=== PATIENT | male | born 1945 | race Caucasian/White ===

== ENCOUNTER 2024-05-27 22:13 | Inpatient (IN) | payer OTHER, SELFPAY ==
--- NOTE | ~2024-05-27 | XR_ITS ---
EXAMINATION: XR CHEST CLINICAL INFORMATION: Dyspnea COMPARISON: None available. TECHNIQUE: Frontal view of the chest was obtained. FINDINGS: There is cardiac enlargement. Mitral annular calcification is present. Patient status post median sternotomy. Surgical clips are seen at the left apex. There is mild pulmonary vascular congestion present. No large effusions are seen. There is atelectasis at the left lung base. There is a catheter that overlies the left neck with tip extending up the neck. Please correlate clinically as this could represent O2 tubing rather than a venous catheter XR/XR chest 1V IMPRESSION: 1. Cardiomegaly with mild pulmonary vascular congestion. Catheter overlying the left neck with tip extending in a cephalad direction. This could simply be O2 tubing. Please correlate clinically.
--- NOTE | ~2024-05-27 | XR_ITS ---
EXAMINATION: XR CHEST CLINICAL INFORMATION: Shortness of breath COMPARISON: 05/27/2024 TECHNIQUE: Frontal view of the chest was obtained. FINDINGS: Patient is status post median sternotomy with cardiomegaly and mild vascular congestion without significant interval change since previous study. No evidence of pleural effusion. XR/XR chest 1V IMPRESSION: Mild vascular congestion and cardiomegaly
[2024-05-27 22:24] VITALS: BP 98/51; PULSE 88; RESP 20; TEMP 37.7; O2SAT 91
[2024-05-27 22:26] VITALS: BP 109/52; BP 118/72; PULSE 86; RESP 24; TEMP 37.8; O2SAT 94; BMI 48.7
[2024-05-27 22:27] LABS: Glucose, Whole Blood 69 mg/dL (60-115)
--- NOTE | 2024-05-27 22:30 | PC.NURSE ---
Pt A&Ox3, denies any pain, reports nausea and flu like symptoms x 3 days and today started to have diarrhea. Pt also reports he is a diabetic and his POC have been low for him in the 80s. Recent POC 69.
[2024-05-27 23:04] LABS: MANUAL DIFF FLAG NO
[2024-05-27 23:08] LABS: Basophils Percent Auto 0.3 % (0-2); Hemoglobin 14.4 g/dl (14.0-18.0); Imm Gran Abs Auto 0.02 X10*3/uL (0.00-0.03); Imm Gran Pct Auto 0.3 % (0.0-0.4); Lymphocytes Absolute Auto 0.6 X10*3/uL (1.2-4.9); Lymphocytes Percent Auto 8.5 % (20-40); Mean Corpuscular HGB Conc 35.1 g/dl (31.0-36.0); Mean Corpuscular Hemoglobin 31.3 pg (27.0-33.0); Mean Corpuscular Volume 89.1 fL (80.0-98.0); Mean Platelet Volume 8.7 fL (9.4-12.4); Monocytes Absolute Auto 0.7 X10*3/uL (0.1-1.2); Monocytes Percent Auto 10.5 % (2-11); Neutrophils Absolute Auto 5.5 x10*3/uL (2.0-8.3); Neutrophils Percent Auto 80.4 % (45-73); Platelet Count 184 X10*3/uL (160-400); Red Cell Distribution Width 13.3 % (11.0-16.0); White Blood Count 6.9 X10*3/uL (4.8-10.8)
[2024-05-27 23:29] LABS: Influenza A PCR NEGATIVE (Negative); Influenza B PCR NEGATIVE (Negative); Resp Syncy Virus RNA Qual PCR NEGATIVE (Negative); SARS COV2 PCR INHOUSE NEGATIVE (Negative)
[2024-05-27] MEDS: 0.9 % Sodium Chloride 1,000 ML 999 ML IV (23:49)
[2024-05-27] MEDS: ondansetron HCL 4 MG/2 ML VIAL IVPUSH (23:51)
[2024-05-28] VITALS (8 sets, daily range): BP systolic 95–113; BP diastolic 38–77; PULSE 67–88; RESP 15–24; TEMP 36.2–37.9; O2SAT 91–98
--- NOTE | 2024-05-28 | ECG_ITS ---
Test Reason : CHECK QT Blood Pressure : / mmHG Vent. Rate : 090 BPM Atrial Rate : 000 BPM P-R Int : 000 ms QRS Dur : 116 ms QT Int : 354 ms P-R-T Axes : 000 004 147 degrees QTc Int : 433 ms Accelerated Junctional rhythm with retrograde conduction T wave abnormality, consider lateral ischemia Abnormal ECG When compared with ECG of 28-MAY-2024 01:58, Junctional rhythm has replaced Sinus rhythm T wave inversion more evident in Lateral leads Referred By: Ceci Baker Electronically Signed By:Leonidas Cui
[2024-05-28 00:20] LABS: Alanine Aminotransferase 20 U/L (0-40); Albumin Level 3.9 g/dL (3.5-5.0); Alkaline Phosphatase 42 U/L (39-117); Anion Gap 14 (12-20); Aspartate Amino Transferase 21 U/L (5-37); Bilirubin Total 0.6 mg/dL (0.0-1.0); Blood Urea Nitrogen 36 mg/dL (9-16); Calcium 9.2 mg/dL (8.4-10.2); Carbon Dioxide 25 mmol/L (22-29); Chloride 105 mmol/L (96-108); Creatinine Clr Calc Pharmacy 37.5; Estimated Glomerular Filt Rate 28; Glucose Random 54 mg/dL (60-115); Potassium 4.1 mmol/L (3.3-5.1); Sodium 140 mmol/L (135-145); Total Protein 7.3 g/dL (6.5-8.0)
[2024-05-28] MEDS: Dextrose 5 % and 0.45 % NaCl 1,000 ML 100 ML IVCONT (00:47)
--- NOTE | 2024-05-28 01:17 | ED_ITS ---
HPI - General Adult General Chief complaint: General Medical Stated complaint: N/D, DIABETIC BGL 76 Time Seen by Provider: 05/27/24 22:53 Source: patient Mode of arrival: ambulatory Limitations: no limitations History of Present Illness ED Provider: raciel MACKEY narrative: Patient diabetic on insulin been feeling weak and sick since yesterday evening patient had [employer] burger earlier at lunchtime had profuse diarrhea yesterday evening gave him Imodium had few more loose bowels vomited 2- 3 times since then been feeling bloated did not eat much all day today also did not take his insulin accepted in the a.m. when blood sugar was about 150 patient has been feeling very weak just prior to arrival patient's slumped down on the couch without any injuries checked the blood sugar was 89 she gave him 3 glucose tablets on arrival patient's blood glucose was 54 no fever no chills no significant abdominal pain Related Data Allergies Allergy/AdvReac Type Severity Reaction Status Date / Time No Known Allergies Allergy Verified 05/27/24 22:31 [No Known Allergies*] Review of Systems 2 Review of Systems: Yes all other systems are reviewed and are negative [facility] Social History Social History Advance Directives: No Advance Directives Information Provided: No Physical Exam ED Vital Signs: Vital Signs - 24 hr 05/27/24 22:24 05/27/24 22:26 05/28/24 00:57 Temperature 100 F 100.0 F 98.1 F Pulse Rate 88 86 73 Respiratory Rate 20 24 H 24 H Blood Pressure 98/51 L 109/52 L 113/38 L Pulse Oximetry 91 L 94 95 Oxygen Delivery Method Room Air Nasal Cannula Room Air BMI result Body Mass Index 48.7 Appearance: Alert. Oriented X3. No acute distress. Eyes: No pallor or icterus ENT: Pharynx normal. Oral Mucosa moist Neck: Normal inspection. Neck supple. CVS: Normal heart rate and rhythm. Pulses normal. Respiratory: No respiratory distress. Equal air entry bilateral, no wheezing/rales/rhonchi Abdomen: Soft and nontender. Bowel sounds are present, no mass palpable, no CVA tenderness Skin: Skin warm and dry. Normal skin color. Normal skin turgor. Extremities: No lower extremity edema. No calf tenderness Neuro: Oriented X 3. No motor deficit. No sensory deficit.No cerebellar signs , cranial nerves II-XII intact Medications Administered Generic Name Dose Route Start Last Admin Trade Name Freq PRN Reason Stop Dose Admin Dextrose/Sodium Chloride 1,000 mls @ 100 mls/hr 05/28/24 00:30 05/28/24 00:47 D51/2ns IVCONT 100 mls/hr .Q10H VALE Administration Discontinued Medications Generic Name Dose Route Start Last Admin Trade Name Freq PRN Reason Stop Dose Admin Sodium Chloride 1,000 mls @ 999 mls/hr 05/27/24 23:41 05/28/24 00:50 Ns IV 05/28/24 00:41 Infused .Q1H1M ONE Infusion Ondansetron HCl 4 mg 05/27/24 23:41 05/27/24 23:51 Ondansetron Hcl 4 Mg/2 Ml Vial IVPUSH 05/27/24 23:42 4 mg ONCE ONE Administration Medical Decision Making Medical Decision Making [facility] Narrative: Patient with MARTINE with hypoglycemia will give IV fluids started on dextrose drip blood cultures and lactic acid done to rule out bacteremia clinically patient had Clostridium perfringens infection after eating burger patient is unaware of his kidney function before Patient is still feeling weak has elevated creatinine level/poor oral intake/hyperglycemia Differential Diagnosis Differential Diagnoses: The differential diagnosis associated with the presentation includes Food poisoning/bacteremia/dehydration Admission/Observation Consideration of admission/observation: Escalation of care including admission/observation considered Consult Healthcare Provider Management of the patient was discussed with: Hospitalist Lab Data [facility] Lab Attestation statement: I reviewed the patient's lab results. 05/27/24 22:59 05/28/24 00:00 Labs: Lab Results 05/27/24 05/27/24 05/27/24 Range/Units 22:18 22:37 22:59 WBC 6.9 (4.8-10.8) X10*3/uL RBC 4.60 (4.60-5.80) X10*6/uL Hgb 14.4 (14.0-18.0) g/dl Hct 41.0 L (42.0-52.0) % MCV 89.1 (80.0-98.0) fL MCH 31.3 (27.0-33.0) pg MCHC 35.1 (31.0-36.0) g/dl RDW 13.3 (11.0-16.0) % Plt Count 184 (160-400) X10*3/uL MPV 8.7 L (9.4-12.4) fL Immature Gran % (Auto) 0.3 (0.0-0.4) % Neut % (Auto) 80.4 H (45-73) % Lymph % (Auto) 8.5 L (20-40) % Barbour % (Auto) 10.5 (2-11) % Eos % (Auto) 0.0 (0-4) % Baso % (Auto) 0.3 (0-2) % Lymph # (Auto) 0.6 L (1.2-4.9) X10*3/uL Barbour # (Auto) 0.7 (0.1-1.2) X10*3/uL Eos # (Auto) 0.0 (0.0-0.4) X10*3/uL Baso # (Auto) 0.0 (0.0-0.2) X10*3/uL Abs Immat Gran (auto) 0.02 (0.00-0.03) X10*3/uL Absolute Neuts (auto) 5.5 (2.0-8.3) x10*3/uL Absolute Nucleated RBC 0.000 (0.0-0.012) X10*3/uL Nucleated RBC % (auto) 0.0 (0.0-0.2) /100WBC Sodium (135-145) mmol/L Potassium (3.3-5.1) mmol/L Chloride (96-108) mmol/L Carbon Dioxide (22-29) mmol/L Anion Gap (12-20) BUN (9-16) mg/dL Creatinine (0.5-1.4) mg/dL Estim Creat Clear Calc Estimated GFR POC Glucose 69 (60-115) mg/dL Random Glucose (60-115) mg/dL Calcium (8.4-10.2) mg/dL Total Bilirubin (0.0-1.0) mg/dL AST (5-37) U/L ALT (0-40) U/L Alkaline Phosphatase (39-117) U/L Total Protein (6.5-8.0) g/dL Albumin (3.5-5.0) g/dL Influenza Type A (PCR) NEGATIVE (Negative) Influenza Type B (PCR) NEGATIVE (Negative) RSV RNA Qual (PCR) NEGATIVE (Negative) SARS-CoV-2 RNA (RT-PCR) NEGATIVE (Negative) 05/28/24 Range/Units 00:00 WBC (4.8-10.8) X10*3/uL RBC (4.60-5.80) X10*6/uL Hgb (14.0-18.0) g/dl Hct (42.0-52.0) % MCV (80.0-98.0) fL MCH (27.0-33.0) pg MCHC (31.0-36.0) g/dl RDW (11.0-16.0) % Plt Count (160-400) X10*3/uL MPV (9.4-12.4) fL Immature Gran % (Auto) (0.0-0.4) % Neut % (Auto) (45-73) % Lymph % (Auto) (20-40) % Barbour % (Auto) (2-11) % Eos % (Auto) (0-4) % Baso % (Auto) (0-2) % Lymph # (Auto) (1.2-4.9) X10*3/uL Barbour # (Auto) (0.1-1.2) X10*3/uL Eos # (Auto) (0.0-0.4) X10*3/uL Baso # (Auto) (0.0-0.2) X10*3/uL Abs Immat Gran (auto) (0.00-0.03) X10*3/uL Absolute Neuts (auto) (2.0-8.3) x10*3/uL Absolute Nucleated RBC (0.0-0.012) X10*3/uL Nucleated RBC % (auto) (0.0-0.2) /100WBC Sodium 140 (135-145) mmol/L Potassium 4.1 (3.3-5.1) mmol/L Chloride 105 (96-108) mmol/L Carbon Dioxide 25 (22-29) mmol/L Anion Gap 14 (12-20) BUN 36 H (9-16) mg/dL Creatinine 2.27 H (0.5-1.4) mg/dL Estim Creat Clear Calc 37.5 Estimated GFR 28 POC Glucose (60-115) mg/dL Random Glucose 54 L* (60-115) mg/dL Calcium 9.2 (8.4-10.2) mg/dL Total Bilirubin 0.6 (0.0-1.0) mg/dL AST 21 (5-37) U/L ALT 20 (0-40) U/L Alkaline Phosphatase 42 (39-117) U/L Total Protein 7.3 (6.5-8.0) g/dL Albumin 3.9 (3.5-5.0) g/dL Influenza Type A (PCR) (Negative) Influenza Type B (PCR) (Negative) RSV RNA Qual (PCR) (Negative) SARS-CoV-2 RNA (RT-PCR) (Negative) Independent Interpretation I performed an independent interpretation of an: EKG Interpretation: heart rate 77 beats per minute no acute ST-T changes no acute ischemia , first- degree heart block Critical Care Time Critical Care Time Critical Care Time: Yes Total Critical Care Time: 50 Attestation: The patient was critically ill with a high probability of imminent or life threatening deterioration. I spent greater than ?55??minutes of discontinuous time evaluating the patient,delivering critical care at the bedside, discussing and evaluating pertinent data with consultants. Critical care time does not include time spent performing separately billable procedures or teaching. Total time spent performing critical care was 55??minutes. Discharge Plan Discharge Clinical Impression: Hypoglycemia associated with diabetes, Acute renal failure Patient Disposition: Admitted As Inpatient Print Language: [place]
--- NOTE | 2024-05-28 01:29 | ECG_ITS ---
Test Reason : weakness Blood Pressure : / mmHG Vent. Rate : 077 BPM Atrial Rate : 077 BPM P-R Int : 294 ms QRS Dur : 116 ms QT Int : 400 ms P-R-T Axes : 000 -01 096 degrees QTc Int : 452 ms Sinus rhythm with sinus arrhythmia with 1st degree A-V block T wave abnormality, consider lateral ischemia Cannot rule out inferior infarct Abnormal ECG No previous ECGs available Referred By: Rigoberto Mccallum Electronically Signed By:Leonidas Cui
--- NOTE | 2024-05-28 01:45 | MHC.EDTECH ---
Patient has been in the bathroom, unable to do EKG in the 10 minutes period.
[2024-05-28 02:30] LABS: Glucose, Whole Blood 69 mg/dL (60-115)
[2024-05-28 02:42] LABS: Lactic Acid 2.8 mmol/L (0.5-2.0)
--- NOTE | 2024-05-28 03:00 | PC.NURSE ---
Dr. Haynes at bedside, gave Pt PO fluids and crackers.
[2024-05-28 03:17] LABS: Cancel Lactic Acid Canceled
--- NOTE | 2024-05-28 03:28 | P.HPHOSP_ITS ---
History of Present Illness Date of Service: 05/28/24 Attending physician on admission: Nelly Valdez Chief Complaint: Nausea, vomiting and diarrhea Eleno Montoya is a 78 years old man with past medical history significant for RUPERTO on CPAP, type 2 diabetes mellitus on insulin, obesity, BPH, hyperlipidemia and essential hypertension was brought to the emergency department via EMS due to 2 days history of nausea, vomiting and nonbloody diarrhea. He does have associated generalized weakness. He denied associated abdominal pain or any acute urinary symptoms. He reported shortness on breath on exertion which he mainly attributed to obstructive sleep apnea. Denies chest pain, dizziness or palpitations. Denied tobacco smoking, alcohol abuse or illicit drug use. He takes furosemide for fluid retention. In the ED, he was found to have stable vital signs. Last blood pressure is 99/56. Blood workup showed no leukocytosis. Hemoglobin and platelets are normal. There are no electrolyte imbalances. He was found to have a blood glucose of 54, repeat was 69. Creatinine is 2.27 and BUN 36 (no baseline creatinine level on our system). Lactic acid is 2.8. LFTs and albumin are normal. Viral testing is negative for COVID-19, RSV influenza. ED tx: NS 2 L bolus, Zofran 4 mg IV Review of Systems 2 Review of Systems: All 12 systems were reviewed and normal except as noted in HPI. [facility] Medical History (Updated 05/28/24 @ 04:20 by Nelly Valdez MD) Mood disorder Obstructive sleep apnea on CPAP Hyperlipidemia Obesity Essential hypertension BPH (benign prostatic hyperplasia) Social History Advance Directives: No Advance Directives Information Provided: No Meds Allergies Allergy/AdvReac Type Severity Reaction Status Date / Time No Known Allergies Allergy Verified 05/27/24 22:31 [No Known Allergies*] Active Medications: Home Medications: * Albuterol 90 mcg 2 puffs every 6 hours as needed * Amlodipine 10 mg p.o. daily * Ascorbic acid 250 mg p.o. daily * Aspirin 81 mg p.o. daily * Divalproex 250 mg p.o. at bedtime * Empagliflozin 25 mg p.o. daily * Ezetimibe 10 mg p.o. daily * Fenofibrate 48 mg 2 tablets p.o. daily * Ferrous sulfate 325 mg p.o. daily * Furosemide 20 mg p.o. daily as needed to remove fluids/control blood pressure * Glucose tablets as needed * Insulin R 170 units subQ every morning * Metoprolol succinate 25 mg p.o. daily * Pramipexole 0.25 mg p.o. twice daily * Seroquel 12.5 mg half tablets p.o. bedtime * Rosuvastatin 40 mg p.o. daily * Tamsulosin 0.4 mg p.o. daily * Valsartan 325 mg p.o. daily * Vitamin D3 25 mcg p.o. daily Physical Exam 2 Vital Signs and Narrative: Vital Signs: Last Vital Signs Temp 98.4 F 05/28/24 02:49 Pulse 67 05/28/24 02:49 Resp 21 H 05/28/24 02:49 BP 99/56 L 05/28/24 02:49 Pulse Ox 97 05/28/24 02:49 O2 Del Method Room Air 05/28/24 02:49 Oxygen Flow Rate 2 05/27/24 22:26 BMI result Body Mass Index 48.7 Constitutional - Awake and Alert, No apparent distress. Pleasant. Cooperative. Obese. Nasal cannula in place. HEENT - PERRL, EOMI. Dry oral mucosa. Normal sclerae. Heart - RRR, No murmurs. Lungs - Normal lung expansion, Normal respiratory effort, No respiratory distress, CTA bilaterally Abdomen - NT / ND; increased BS; No rebound or guarding Extremities - no calf tenderness bilaterally, mild pitting edema. Musculoskeletal - Normal inspection, normal ROM Skin - Warm/Dry Neurological - Alert & oriented x3. No focal weakness grossly noted. Normal speech. Psychological - Appropriate affect Results Labs 05/27/24 22:59 05/28/24 00:00 Labs: Laboratory Results - last 24 hr 05/27/24 05/27/24 05/27/24 22:18 22:37 22:59 MCV 89.1 MCH 31.3 MCHC 35.1 RDW 13.3 Plt Count 184 MPV 8.7 L Immature Gran % (Auto) 0.3 Neut % (Auto) 80.4 H Lymph % (Auto) 8.5 L Zavala % (Auto) 10.5 Eos % (Auto) 0.0 Baso % (Auto) 0.3 Lymph # (Auto) 0.6 L [place] # (Auto) 0.7 Eos # (Auto) 0.0 Baso # (Auto) 0.0 Abs Immat Gran (auto) 0.02 Absolute Neuts (auto) 5.5 Absolute Nucleated RBC 0.000 Nucleated RBC % (auto) 0.0 Anion Gap Estim Creat Clear Calc Estimated GFR POC Glucose 69 Random Glucose Lactic Acid Calcium Total Bilirubin AST ALT Alkaline Phosphatase Total Protein Albumin Influenza Type A (PCR) NEGATIVE Influenza Type B (PCR) NEGATIVE RSV RNA Qual (PCR) NEGATIVE SARS-CoV-2 RNA (RT-PCR) NEGATIVE 05/28/24 05/28/24 05/28/24 00:00 02:05 02:23 MCV MCH MCHC RDW Plt Count MPV Immature Gran % (Auto) Neut % (Auto) Lymph % (Auto) Zavala % (Auto) Eos % (Auto) Baso % (Auto) Lymph # (Auto) [place]avala # (Auto) Eos # (Auto) Baso # (Auto) Abs Immat Gran (auto) Absolute Neuts (auto) Absolute Nucleated RBC Nucleated RBC % (auto) Anion Gap 14 Estim Creat Clear Calc 37.5 Estimated GFR 28 POC Glucose 69 Random Glucose 54 L* Lactic Acid 2.8 H* Calcium 9.2 Total Bilirubin 0.6 AST 21 ALT 20 Alkaline Phosphatase 42 Total Protein 7.3 Albumin 3.9 Influenza Type A (PCR) Influenza Type B (PCR) RSV RNA Qual (PCR) SARS-CoV-2 RNA (RT-PCR) Imaging Radiologist's Impressions: Impressions Chest X-Ray 05/27/24 22:40 IMPRESSION: 1. Cardiomegaly with mild pulmonary vascular congestion. Catheter overlying the left neck with tip extending in a cephalad direction. This could simply be O2 tubing. Please correlate clinically. Assessment and Plan (1) Acute renal failure: Qualifiers: Acute renal failure type: unspecified Qualified Code(s): N17.9 - Acute kidney failure, unspecified Status: Acute (2) Hypoglycemia associated with diabetes: Status: Acute (3) Lactic acid acidosis: Status: Acute (4) Type 2 diabetes mellitus with insulin therapy: Status: Acute (5) Nausea vomiting and diarrhea: Status: Acute Plan Eleno Montoya is a 78 y/o man admitted with: * Renal failure, likely acute secondary to poor p.o. intake, vomiting and diarrhea. Admit to hospitalist service. Continue IV fluids. Monitor renal function. Check bladder scan. Hold furosemide and valsartan. Avoid nephrotoxic agents. * Nausea, vomiting and diarrhea. No abdominal pain. Suspecting acute gastroenteritis, COVID viral or food poisoning. Check GI panel. Continue IV hydration. Antiemetic and antidiarrheal medications as needed. * Type 2 diabetes mellitus with hypoglycemia likely secondary to poor p.o. intake in the setting of insulin use. Continue IV fluids with D5. Hold insulin. Hold empagliflozin. Continue to monitor blood glucose closely. * Lactic acidosis, no severe sepsis criteria. Likely secondary to delayed clearance due to renal dysfunction. Continue IV fluids. Continue to monitor lactic acid. * Hyperlipidemia. Continue ezetimibe, fenofibrate and rosuvastatin. * BPH. Tamsulosin on hold due to soft BP. * Essential hypertension. Hold metoprolol, furosemide, valsartan and amlodipine due to soft BP. * Mood disorder. Continue Depakote, pramipexole and Seroquel. * RUPERTO. Nocturnal CPAP. DVT prophylaxis: Lovenox Code status: Full Patient will need hospitalization for at least 2 midnights for acute renal failure management with IV fluids and close monitoring of renal function.. Quality Stroke Does the patient have a stroke diagnosis?: No VTE Prior VTE?: No VTE Risk Level:: Medical - moderate - high VTE Device Contraindication: Treatment Not Indicated VTE Drug Contraindication: N/A - Med Ordered
--- OUTSIDE RECORDS SUMMARY | 2024-05-28 03:32 | XMS_ITS | Continuity of Care Document ---
Author Organization [facility] Address [address] [place] [id number]- Care Team Providers Care Pharmacology Professor Name Role Phone Malik Saida SCHULER Primary Care Physician Encounter [facility] [place] Date(s): 01/30/24 - 02/29/24 [facility] [address] [place] [id number]- [place] Allergies, Adverse Reactions, Alerts No Known Medication Allergies Medications alfuzosin 10 mg oral tablet, extended release 1 tablet = 10 mg, By Mouth, Daily, # 30 tablet, 0 Refills, Maintenance, 03/01/17 21:21:22, ER Tablet Start Date: 03/01/17 Status: Ordered amLODIPine 10 mg oral tablet 10 mg, 1, tablet, By Mouth, Daily, # 30 tablet, Refills 0, Maintenance, 03/01/17 21:20:49 Start Date: 03/01/17 Status: Ordered aspirin 81 mg oral tablet 1 tablet = 81 mg, By Mouth, Daily, # 30 tablet, 0 Refills, Maintenance, 03/01/17 21:21:45, Tablet Start Date: 03/01/17 Status: Ordered chlorhexidine 4% topical soap 1 applicator, Topically, 3 times a week, 0 Refills, Maintenance, 03/01/17 21:22:04 Start Date: 03/01/17 Status: Ordered finasteride 5 mg oral tablet 1 tablet = 5 mg, By Mouth, Daily, # 30 tablet, 0 Refills, Maintenance, 03/01/17 21:22:48, Tablet Start Date: 03/01/17 Status: Ordered lamotrigine 100 mg oral tablet 50 mg, 0.5, tablet, By Mouth, 2 times a day, Refills 0, Maintenance, 03/01/17 21:25:34 Start Date: 03/01/17 Status: Ordered Lantus 100 u/ml subcutaneous solution See Instructions, 50 units in the am and 48 units in the eveningSubcutaneous Injectio, 0 Refills, Maintenance, 03/01/17 21:23:18 Start Date: 03/01/17 Status: Ordered menthol-methyl salicylate 10%-15% topical cream apply, Topically, 3 times a day, 0 Refills, Maintenance, 03/01/17 21:26:14 Start Date: 03/01/17 Status: Ordered metFORMIN 500 mg oral tablet 1 tablet = 500 mg, By Mouth, 2 times a day, # 60 tablet, 0 Refills, Maintenance, 03/01/17 21:26:53,Tablet Start Date: 03/01/17 Status: Ordered metoprolol 25 mg oral tablet 25 mg, By Mouth, 2 times a day, # 60 tablet, Refills 0, Tot. Refills 0, Maintenance, 03/05/17 11:59:14, Route to Pharmacy Electronically, [id number], [facility] Start Date: 03/05/17 Status: Ordered NovoLOG 100 units/mL subcutaneous solution See Instructions, 38 units in the am, 40 units at lunch, and 45 units dinner Subcutaneous Injection, 0 Refills, Maintenance, 03/01/17 21:24:22, Solution Start Date: 03/01/17 Status: Ordered pramipexole 0.25 mg oral tablet 1 tablet = 0.25 mg, By Mouth, 2 times a day, 0 Refills, Maintenance, 03/01/17 21:27:19 Start Date: 03/01/17 Status: Ordered rosuvastatin 40 mg oral tablet 1 tablet = 40 mg, By Mouth, Daily, # 30 tablet, 0 Refills, Maintenance, 03/05/17 12:02:21, Tablet Start Date: 03/05/17 Status: Ordered ticagrelor 90 mg oral tablet 1 tablet = 90 mg, By Mouth, 2 times a day, # 60 tablet, 0 Refills, Maintenance, 03/05/17 12:01:36, Tablet Start Date: 03/05/17 Status: Ordered valsartan 40 mg oral tablet 40 mg, 1, tablet, By Mouth, Daily, Refills 0, Maintenance, 03/01/17 21:28:17 Start Date: 03/01/17 Status: Ordered Vitamin D3 1000 intl units oral tablet 1 tablet = 1,000 International_Units, By Mouth, Daily, # 30 tablet, 0 Refills, Maintenance, 03/01/17 21:28:47, Tablet Start Date: 03/01/17 Status: Ordered Social History Social History Type Response Smoking Status Former smoker; Other : Quit 4 years ago; entered on: 03/05/17 Sex Patient Care team information Care Team Personnel Name: Saida Malik MD Position: [facility] Office Staff Member Role: PCP Address: Address: [address] [place] [address]- Care Team Related Persons Name: CLARENCE CARRASCO Address: home [address] [place] [address] Name: JUVE MAI Address: home [address] [place] [address]
[2024-05-28 04:03] LABS: Glucose, Whole Blood 94 mg/dL (60-115)
[2024-05-28 04:24] LABS: MANUAL DIFF FLAG NO
[2024-05-28 04:25] LABS: Basophils Percent Auto 0.4 % (0-2); Hematocrit 40.1 % (42.0-52.0); Hemoglobin 13.9 g/dl (14.0-18.0); Lymphocytes Absolute Auto 0.8 X10*3/uL (1.2-4.9); Lymphocytes Percent Auto 15.8 % (20-40); Mean Corpuscular HGB Conc 34.7 g/dl (31.0-36.0); Mean Corpuscular Hemoglobin 31.4 pg (27.0-33.0); Mean Corpuscular Volume 90.5 fL (80.0-98.0); Mean Platelet Volume 8.7 fL (9.4-12.4); Monocytes Absolute Auto 0.5 X10*3/uL (0.1-1.2); Monocytes Percent Auto 10.6 % (2-11); Neutrophils Absolute Auto 3.7 x10*3/uL (2.0-8.3); Neutrophils Percent Auto 73.2 % (45-73); Platelet Count 168 X10*3/uL (160-400); Red Blood Count 4.43 X10*6/uL (4.60-5.80); Red Cell Distribution Width 13.5 % (11.0-16.0)
[2024-05-28 04:34] LABS: Lactic Acid 1.2 mmol/L (0.5-2.0)
[2024-05-28 04:40] LABS: Anion Gap 13 (12-20); Blood Urea Nitrogen 38 mg/dL (9-16); Calcium 8.7 mg/dL (8.4-10.2); Carbon Dioxide 25 mmol/L (22-29); Chloride 104 mmol/L (96-108); Creatinine Clr Calc Pharmacy 36.1; Estimated Glomerular Filt Rate 27; Glucose Random 106 mg/dL (60-115); Magnesium 1.9 mg/dL (1.6-2.6); Potassium 4.2 mmol/L (3.3-5.1); Sodium 138 mmol/L (135-145)
[2024-05-28] MEDS: 0.9 % Sodium Chloride 1,000 ML 999 ML IV (05:33)
[2024-05-28 06:32] LABS: Glucose, Whole Blood 109 mg/dL (60-115)
[2024-05-28] MEDS: Dextrose 5 % and Lactated Ring 1,000 ML 100 ML IVCONT (06:46)
--- NOTE | 2024-05-28 06:49 | PC.NURSE ---
Pt bladder scan results >1300. Pt reports he has been voiding when going to [place]. Dr. Haynes made aware, order for perez placement.
[2024-05-28 07:26] LABS: Glucose, Whole Blood 111 mg/dL (60-115)
[2024-05-28 07:39] LABS: Appearance Urine Clear; Color Urine Yellow; Glucose Urine UA >=1000 mg/dL (Negative); Leukocyte Esterase Urine Negative (Negative); Nitrite Urine Negative (Negative); PH 5.5 (5.0-9.0); Specific Gravity - Urine 1.025 (1.005-1.025); UMIC TRIGGER UACC YES; Urine Blood Negative (Negative); Urine Ketones Negative (Negative); Urine Protein Trace mg/dL (Neg-Trace)
[2024-05-28 07:48] LABS: Bacteria Urine None Seen (None Seen); Hyaline Casts Urine 0-2 /LPF (0-2); RBC Urine 0-2 /HPF (0-2); Squamous Epithelial Cell Urine 0-2 /HPF (0-2); WBC Urine 0-5 /HPF (0-5)
--- NOTE | 2024-05-28 08:55 | PHA.MEDREC ---
Pharmacy Consult ? Medication Reconciliation Pharmacy has completed the medication reconciliation. Confirmed medications with list provided by at bedside. His was able to confirm his Humulin R U-500 insulin 170 units daily and he last took that according to her was yesterday morning before he ate.
[2024-05-28] MEDS: Enoxaparin Sodium 30 MG/0.3 ML SYRINGE SUBCUT (09:21)
--- NOTE | 2024-05-28 10:32 | PC.NURSE ---
patient brought to overflow 6 from main ED. multiple episodes of stool incontinence since arrival to unit, benito/camilo changed. patient up to use commode w/ one assist - unsteady on feet. encouraged to use call hurt to get out of bed/back into bed.
[2024-05-28 13:58] LABS: Adenovirus F 40/41 Not Detected (Not Detect.); Astrovirus Not Detected (Not Detect.); Cryptosporidium Not Detected (Not Detect.); Cyclospora cayetanensis Not Detected (Not Detect.); E. coli EAEC Not Detected (Not Detect.); E. coli EPEC Detected (Not Detect.); E. coli ETEC Not Detected (Not Detect.); E. coli STEC Not Detected (Not Detect.); Entamoeba histolytica Not Detected (Not Detect.); Giardia lamblia Not Detected (Not Detect.); Norovirus GI/GII Not Detected (Not Detect.); Plesiomonas shigelloides Not Detected (Not Detect.); Rotavirus A Not Detected (Not Detect.); Salmonella Not Detected (Not Detect.); Sapovirus Not Detected (Not Detect.); Shigella sp./EIEC Not Detected (Not Detect.); Vibrio Not Detected (Not Detect.); Vibrio Cholerae Not Detected (Not Detect.); Yersinia enterocolitica Not Detected (Not Detect.)
--- NOTE | 2024-05-28 14:14 | PM.EVENT ---
Event Note Date of Service: 05/28/24 Event Note: seen and examined this morning follow up for for MARTINE, N/V/D had diarrhea this am, no abdominal pain had urinary retention - perez placed stool studies pending MARTINE-valsartan, Lasix on hold. Follow renal function closely Hypertension. Blood pressure soft home baseline meds, resume beta alex in a.m. if blood pressure tolerates further management as per admission H&P Time Spent With Patient Time: Total time managing care of this patient today ____ minutes.
[2024-05-28] MEDS: Loperamide HCl 2 MG CAPSULE PO ×2 (14:35→20:57)
--- NOTE | 2024-05-28 14:40 | PC.NURSE ---
patient ate lunch and approx 30 mins later was incontinent of loose stool. medicated per the MAR w/ prn for diarrhea.
[2024-05-28 14:41] LABS: Glucose, Whole Blood 223 mg/dL (60-115)
[2024-05-28 14:46] LABS: Campylobacter Detected (Not Detect.)
--- NOTE | 2024-05-28 15:49 | PC.NURSE ---
patient placed on contact precautions at this time
[2024-05-28 17:16] LABS: Glucose, Whole Blood 203 mg/dL (60-115)
[2024-05-28] MEDS: Azithromycin 500 MG in 0.9 % Sodium Chloride 250 ML 125 MG IV (17:27)
--- NOTE | 2024-05-28 17:39 | PC.NURSE ---
patient holding off on food at this time d/t incontinence of diarrhea. provided with water, jello, and diet moon lani. did not medicate w/ dinner time insulin. antibiotics infusing.
[2024-05-28 20:31] LABS: Glucose, Whole Blood 217 mg/dL (60-115)
[2024-05-28] MEDS: Divalproex Sodium ER 250 MG TAB.ER.24H PO (20:56)
[2024-05-28] MEDS: QUEtiapine Fumarate 25 MG TABLET 12.5 MG PO (20:56)
[2024-05-28] MEDS: Insulin Lispro 100 UNIT/ML 3 ML VIAL SUBCUT (20:57)
[2024-05-28] MEDS: 0.9 % Sodium Chloride Flush 3 ML SYRINGE IVFLUSH (20:57)
[2024-05-28] MEDS: Pramipexole Di-HCL 0.25 MG TABLET PO (20:57)
[2024-05-28] MEDS: Melatonin 3 MG TABLET 6 MG PO (20:57)
--- NOTE | 2024-05-28 21:33 | ECG_ITS ---
Test Reason : Arrhythmia Blood Pressure : / mmHG Vent. Rate : 078 BPM Atrial Rate : 078 BPM P-R Int : 326 ms QRS Dur : 118 ms QT Int : 392 ms P-R-T Axes : -10 -03 107 degrees QTc Int : 446 ms Sinus rhythm with sinus arrhythmia with 1st degree A-V block Non-specific intra-ventricular conduction delay ST & T wave abnormality, consider lateral ischemia Inferior infarct Abnormal ECG When compared with ECG of 28-MAY-2024 15:37, Sinus rhythm has replaced Junctional rhythm Referred By: Nelly Valdez Electronically Signed By:Leonidas Cui
[2024-05-29] VITALS (7 sets, daily range): BP systolic 78–109; BP diastolic 52–68; PULSE 81–87; RESP 12–24; TEMP 36.6–37.6; O2SAT 91–98; BMI 43.9
[2024-05-29] MEDS: Lactated Ringers 500 ML 999 ML IV (05:22)
[2024-05-29 06:47] LABS: Anion Gap 12 (12-20); Blood Urea Nitrogen 35 mg/dL (9-16); Calcium 7.8 mg/dL (8.4-10.2); Carbon Dioxide 22 mmol/L (22-29); Chloride 104 mmol/L (96-108); Creatinine Clr Calc Pharmacy 43.3; Estimated Glomerular Filt Rate 33; Glucose Random 159 mg/dL (60-115); Potassium 3.6 mmol/L (3.3-5.1); Sodium 134 mmol/L (135-145)
[2024-05-29] MEDS: Insulin Lispro 100 UNIT/ML 3 ML VIAL SUBCUT ×4 (07:58→22:16)
[2024-05-29] MEDS: Pramipexole Di-HCL 0.25 MG TABLET PO ×2 (07:58→22:18)
[2024-05-29 08:02] LABS: Glucose, Whole Blood 157 mg/dL (60-115)
[2024-05-29] MEDS: 0.9 % Sodium Chloride 250 ML 500 ML IV (08:06)
[2024-05-29] MEDS: Enoxaparin Sodium 30 MG/0.3 ML SYRINGE SUBCUT (08:07)
[2024-05-29] MEDS: 0.9 % Sodium Chloride Flush 3 ML SYRINGE IVFLUSH (08:08)
[2024-05-29] MEDS: Lactated Ringers 1,000 ML 100 ML IVCONT (08:08)
--- NOTE | 2024-05-29 09:32 | MHC.CM.PN ---
Pt lives with his , he does not have home health services. For DME he has a CPAP machine. He has someone who can pick him up at [place]. PCP is Dr. Araiza at the [facility] in [place]. He said his sister is his HCP, copy requested. DCP: home, self care, CM to follow for DC needs.
[2024-05-29 11:42] LABS: Glucose, Whole Blood 241 mg/dL (60-115)
[2024-05-29] MEDS: levoFLOXacin/D5W 500 MG/100 ML PIGGYBACK 100 MG IV (11:49)
[2024-05-29] MEDS: Albumin Human 25 % 100 ML IV ×2 (11:49→12:51)
--- NOTE | 2024-05-29 12:18 | P.CONNP_ITS ---
History of Present Illness Reason for Consult Consult date: 05/29/24 Reason for consult: MARTINE Chief Complaint Chief complaint: Acute Kidney Injury History of Present Illness Narrative: 78 years old man with past medical history significant for RUPERTO on CPAP, type 2 diabetes mellitus on insulin, obesity, BPH, hyperlipidemia and essential hypertension was brought to the emergency department via EMS due to 2 days history of nausea, vomiting and nonbloody diarrhea. He does have associated generalized weakness. He denied associated abdominal pain or any acute urinary symptoms. He reported shortness on breath on exertion which he mainly attributed to obstructive sleep apnea. Denies chest pain, dizziness or palpitations. Denied tobacco smoking, alcohol abuse or illicit drug use. He takes furosemide for fluid retention. ON LICENSE OF [facility] Past Medical History Medical History (Updated 05/28/24 @ 04:20 by Nelly Valdez MD) Mood disorder Obstructive sleep apnea on CPAP Hyperlipidemia Obesity Essential hypertension BPH (benign prostatic hyperplasia) Social History Social History Household Members: Spouse Housing: House Do you presently have visiting nurse or other home services: No Alcohol intake: never Patient Tobacco Use Status: Former Tobacco user service: Yes Meds Allergies Allergy/AdvReac Type Severity Reaction Status Date / Time No Known Allergies Allergy Verified 05/27/24 22:31 [No Known Allergies*] Active Medications: Current Medications Acetaminophen (Acetaminophen 325 Mg Tablet) 975 mg PO Q6H PRN PRN Reason: Pain, Mild (Pain Scale 1-3), fever or headache Albuterol Sulfate (Albuterol Sulfate 90 Mcg 8 Gm Inhaler) 2 puff INHALE Q6H PRN PRN Reason: SOB/Wheezing Calcium Carbonate (Calcium Carbonate 750 Mg Tab.Chew) 750 mg PO Q4H PRN PRN Reason: Heartburn Divalproex Sodium (Divalproex Sodium Er 250 Mg Tab.Er.24h) 250 mg PO BEDTIME [facility] Last Admin: 05/28/24 20:56 Dose: 250 mg Enoxaparin Sodium (Enoxaparin Sodium 30 Mg/0.3 Ml Syringe) 30 mg SUBCUT Q24H [facility] Last Admin: 05/29/24 08:07 Dose: 30 mg Glucose (Glucose Gel 15 Gm Gel..Gram.) 15 gm PO Q15M PRN; Protocol PRN Reason: per Hypoglycemia Standing Ord. Dextrose (D10) 250 mls @ 750 mls/hr IV Q15M PRN; Protocol PRN Reason: per Hypoglycemia Standing Ord. Lactated Ringer's (Lr) 1,000 mls @ 100 mls/hr IVCONT .Q10H [facility] Last Admin: 05/29/24 08:08 Dose: 100 mls/hr Albumin Human (Kedbumin 25 %) 100 mls @ 100 mls/hr IV Q1H [facility] Stop: 05/29/24 12:59 Last Admin: 05/29/24 11:49 Dose: 100 mls/hr Levofloxacin (Levaquin) 500 mg in 100 mls @ 100 mls/hr IV Q24H [facility] Last Infusion: 05/29/24 12:08 Dose: 0 mls/hr Metronidazole (Flagyl) 500 mg in 100 mls @ 100 mls/hr IV Q8H [facility] Insulin Human Lispro (Insulin Lispro 100 Unit/Ml 3 Ml Vial) 0 unit SUBCUT QIDACHS [facility]; Protocol Last Admin: 05/29/24 11:49 Dose: 4 unit Lactic Acid (Ammonium Lactate 12 % Lotion 226 Gm Bottle) 1 appl TOPICAL DAILY [facility]; Protocol Last Admin: 05/29/24 08:08 Dose: Not Given Loperamide HCl (Loperamide Hcl 2 Mg Capsule) 2 mg PO Q4H PRN PRN Reason: diarrhea Last Admin: 05/28/24 20:57 Dose: 2 mg Melatonin (Melatonin 3 Mg Tablet) 6 mg PO BEDTIME PRN PRN Reason: Insomnia Last Admin: 05/28/24 20:57 Dose: 6 mg Metoprolol Succinate (Metoprolol Succinate Er 25 Mg Tab.Er.24h) 25 mg PO DAILY [facility]; Protocol Pramipexole Dihydrochloride (Pramipexole Di-Hcl 0.25 Mg Tablet) 0.25 mg PO BID [facility] Last Admin: 05/29/24 07:58 Dose: 0.25 mg Quetiapine Fumarate (Quetiapine Fumarate 25 Mg Tablet) 12.5 mg PO BEDTIME [facility] Last Admin: 05/28/24 20:56 Dose: 12.5 mg Sodium Chloride (0.9 % Sodium Chloride Flush 3 Ml Syringe) 3 ml IVFLUSH QSHIFT [facility] Last Admin: 05/29/24 08:08 Dose: 3 ml Tamsulosin HCl (Tamsulosin Hcl 0.4 Mg Capsule) 0.4 mg PO DAILY [facility] Home Medications ?Medication ?Instructions ?Recorded ?Confirmed ?Last Taken ?Type albuterol sulfate 90 mcg/actuation 2 puff inhalation Q6H PRN 05/28/24 05/28/24 Unknown History aerosol inhaler SOB/Wheezing amlodipine 10 mg tablet 10 mg PO DAILY 05/28/24 05/28/24 05/27/24 07:00 History ammonium lactate 12 % lotion 1 appl topical DAILY 05/28/24 05/28/24 05/27/24 07:00 History ascorbic acid (vitamin C) 250 mg 250 mg PO DAILY 05/28/24 05/28/24 05/27/24 07:00 History tablet aspirin 81 mg tablet,delayed 81 mg PO DAILY 05/28/24 05/28/24 05/27/24 07:00 History release cholecalciferol (vitamin D3) 25 25 mcg PO DAILY 05/28/24 05/28/24 05/27/24 07:00 History mcg (1,000 unit) tablet (Vitamin D3) divalproex 250 mg tablet,extended 250 mg PO BEDTIME 05/28/24 05/28/24 05/26/24 History release 24 hr empagliflozin 25 mg tablet 25 mg PO DAILY 05/28/24 05/28/24 05/27/24 07:00 History ezetimibe 10 mg tablet 10 mg PO DAILY 05/28/24 05/28/24 05/27/24 07:00 History fenofibrate nanocrystallized 48 mg 96 mg PO DAILY 05/28/24 05/28/24 05/27/24 07:00 History tablet ferrous sulfate 325 mg (65 mg 325 mg PO DAILY 05/28/24 05/28/24 05/27/24 07:00 History iron) tablet furosemide 20 mg tablet 20 mg PO DAILY PRN Edema 05/28/24 05/28/24 05/27/24 07:00 History glucose 4 gram chewable tablet 16 g PO Q15M PRN Blood Glucose 05/28/24 05/28/24 Unknown History Reaction Below 70 insulin regular hum U-500 conc 500 170 unit subcut DAILY 05/28/24 05/28/24 05/27/24 07:00 History unit/mL(3 mL) subcut pen (Humulin R U-500 (Conc) Insulin Kwikpen) metoprolol succinate 25 mg 25 mg PO DAILY 05/28/24 05/28/24 05/27/24 07:00 History tablet,extended release 24 hr pramipexole 0.25 mg tablet 0.25 mg PO BID 05/28/24 05/28/24 05/27/24 07:00 History quetiapine 25 mg tablet 12.5 mg PO BEDTIME 05/28/24 05/28/24 05/26/24 History rosuvastatin 40 mg tablet 40 mg PO DAILY 05/28/24 05/28/24 05/27/24 07:00 History tamsulosin 0.4 mg capsule 0.4 mg PO DAILY 05/28/24 05/28/24 05/27/24 07:00 History valsartan 320 mg tablet 320 mg PO DAILY 05/28/24 05/28/24 05/27/24 07:00 History Physical Exam Vital Signs: Last Vital Signs Temp 97.9 F 05/29/24 11:48 Pulse 86 05/29/24 11:48 Resp 20 05/29/24 11:48 BP 109/61 05/29/24 11:48 Pulse Ox 93 05/29/24 11:48 O2 Del Method Nasal Cannula 05/29/24 11:48 O2 Flow Rate 2 05/29/24 11:48 Oxygen Flow Rate 2 05/27/24 22:26 BMI result Body Mass Index 48.7 Awake. Comfortable. Neck is supple. Mucosa moist. Lungs bilateral scattered rhonchi. Heart S1-S2 heard no gallop. Abdomen soft. Extremities no edema. No involuntary movements. No myoclonus. Results Lab Results 05/28/24 04:17 05/29/24 06:05 Lab results: Chemistry 05/28/24 05/28/24 05/29/24 00:00 04:17 06:05 Sodium 140 138 134 L Potassium 4.1 4.2 3.6 Carbon Dioxide 25 25 22 BUN 36 H 38 H 35 H Creatinine 2.27 H 2.36 H 1.97 H Calcium 9.2 8.7 7.8 L D Hematology 05/27/24 05/28/24 22:59 04:17 WBC 6.9 5.0 Hgb 14.4 13.9 L Plt Count 184 168 Urinalysis 05/28/24 07:23 Urine Color Yellow Urine Appearance Clear Urine pH 5.5 Ur Specific [place] 1.025 Urine Protein Trace Urine Glucose (UA) >=1000 H Urine Ketones Negative Urine Blood Negative Urine Nitrite Negative Ur Leukocyte Esterase Negative Urine RBC 0-2 Urine WBC 0-5 Ur Squamous Epith Cells 0-2 Hyaline Casts 0-2 Assessment and Plan (1) Acute renal failure: Qualifiers: Acute renal failure type: unspecified Qualified Code(s): N17.9 - Acute kidney failure, unspecified Status: Acute Plan MARTINE due to hypoperfusion from low blood pressure and diarrhea. Renal function is improving. Keep intake more than output Hold and all antihypertensives and diuretics. Maintain systolic blood pressure more than 100 mm Hg. Expect renal recovery. Procedures Date of Service Date of Service: 05/29/24
--- NOTE | 2024-05-29 12:38 | P.PNIM_ITS ---
Subjective Subjective Date of Service: 05/29/24 Interval History: Seen and examined this morning Follow-up for diarrhea, MARTINE Blood pressure low this morning, patient asymptomatic No abdominal pain, fever, chills Feels diarrhea slowing down. asking to go home Review of Systems Review of Systems: Yes all other systems are reviewed and are negative Constitutional Constitutional: Denies chills and Denies fever(s) Cardiovascular Cardiovascular: Denies chest pain, Denies palpitations and Denies dyspnea Respiratory Respiratory: Denies cough and Denies dyspnea Gastrointestinal Gastrointestinal: Denies abdominal pain, Denies nausea and Denies vomiting Endocrine Endocrine: Denies palpitations Physical Exam 2 Vital Signs: Vital Signs: Last Vital Signs Temp 97.9 F 05/29/24 11:48 Pulse 86 05/29/24 11:48 Resp 20 05/29/24 11:48 BP 109/61 05/29/24 11:48 Pulse Ox 93 05/29/24 11:48 O2 Del Method Nasal Cannula 05/29/24 11:48 O2 Flow Rate 2 05/29/24 11:48 Oxygen Flow Rate 2 05/27/24 22:26 BMI result Body Mass Index 48.7 Const: General: cooperative, comfortable, alert and awake Nutritional Appearance: average body habitus Orientation/consciousness: patient oriented x3 Resp: Effort & Inspection: normal respiratory effort, able to speak in complete sentences, no respiratory distress and no use of accessory muscles Cardio: Rate: regular rate GI: Inspection: No distended and Yes obesity Palpation (GI): Soft to palpation and nontender Neuro: General: patient oriented x3, moves all extremities and CN's II-XI intact bilaterally Objective Data Active Medications Acetaminophen (Acetaminophen 325 Mg Tablet) 975 mg PO Q6H PRN PRN Reason: Pain, Mild (Pain Scale 1-3), fever or headache Albuterol Sulfate (Albuterol Sulfate 90 Mcg 8 Gm Inhaler) 2 puff INHALE Q6H PRN PRN Reason: SOB/Wheezing Calcium Carbonate (Calcium Carbonate 750 Mg Tab.Chew) 750 mg PO Q4H PRN PRN Reason: Heartburn Divalproex Sodium (Divalproex Sodium Er 250 Mg Tab.Er.24h) 250 mg PO BEDTIME [facility] Last Admin: 05/28/24 20:56 Dose: 250 mg Documented By: PAULINE Enoxaparin Sodium (Enoxaparin Sodium 30 Mg/0.3 Ml Syringe) 30 mg SUBCUT Q24H [facility] Last Admin: 05/29/24 08:07 Dose: 30 mg Documented By: WHIT Glucose (Glucose Gel 15 Gm Gel..Gram.) 15 gm PO Q15M PRN; Protocol PRN Reason: per Hypoglycemia Standing Ord. Dextrose (D10) 250 mls @ 750 mls/hr IV Q15M PRN; Protocol PRN Reason: per Hypoglycemia Standing Ord. Lactated Ringer's (Lr) 1,000 mls @ 100 mls/hr IVCONT .Q10H [facility] Stop: 05/29/24 17:59 Last Admin: 05/29/24 08:08 Dose: 100 mls/hr Documented By: WHIT Albumin Human (Kedbumin 25 %) 100 mls @ 100 mls/hr IV Q1H [facility] Stop: 05/29/24 12:59 Last Admin: 05/29/24 11:49 Dose: 100 mls/hr Documented By: WHIT Levofloxacin (Levaquin) 500 mg in 100 mls @ 100 mls/hr IV Q24H [facility] Last Infusion: 05/29/24 12:08 Dose: 0 mls/hr Documented By: WHIT Metronidazole (Flagyl) 500 mg in 100 mls @ 100 mls/hr IV Q8H [facility] Insulin Human Lispro (Insulin Lispro 100 Unit/Ml 3 Ml Vial) 0 unit SUBCUT QIDACHS [facility]; Protocol Last Admin: 05/29/24 11:49 Dose: 4 unit Documented By: WHIT Lactic Acid (Ammonium Lactate 12 % Lotion 226 Gm Bottle) 1 appl TOPICAL DAILY [facility]; Protocol Last Admin: 05/29/24 08:08 Dose: Not Given Documented By: WHIT Non-Admin Reason: waiting for pharmacy to bring up Loperamide HCl (Loperamide Hcl 2 Mg Capsule) 2 mg PO Q4H PRN PRN Reason: diarrhea Last Admin: 05/28/24 20:57 Dose: 2 mg Documented By: PAULINE Melatonin (Melatonin 3 Mg Tablet) 6 mg PO BEDTIME PRN PRN Reason: Insomnia Last Admin: 05/28/24 20:57 Dose: 6 mg Documented By: PAULINE Metoprolol Succinate (Metoprolol Succinate Er 25 Mg Tab.Er.24h) 25 mg PO DAILY [facility]; Protocol Pramipexole Dihydrochloride (Pramipexole Di-Hcl 0.25 Mg Tablet) 0.25 mg PO BID [facility] Last Admin: 05/29/24 07:58 Dose: 0.25 mg Documented By: WHIT Quetiapine Fumarate (Quetiapine Fumarate 25 Mg Tablet) 12.5 mg PO BEDTIME [facility] Last Admin: 05/28/24 20:56 Dose: 12.5 mg Documented By: PAULINE Sodium Chloride (0.9 % Sodium Chloride Flush 3 Ml Syringe) 3 ml IVFLUSH QSHIFT [facility] Last Admin: 05/29/24 08:08 Dose: 3 ml Documented By: WHIT Tamsulosin HCl (Tamsulosin Hcl 0.4 Mg Capsule) 0.4 mg PO DAILY [facility] Labs 05/28/24 04:17 05/29/24 06:05 Labs: Laboratory Results - last 24 hr 05/28/24 05/28/24 05/28/24 09:15 14:37 17:12 Anion Gap Estim Creat Clear Calc Estimated GFR POC Glucose 223 H 203 H Random Glucose Calcium Stl C. cayetanensis PCR Not Detected Stool Rotavirus A PCR Not Detected Stl Adenov F / PCR Not Detected Stool Astrovirus (PCR) Not Detected Stool Campylobacter PCR Detected A Stool Cryptosporidium PCR Not Detected Stl Sh Tox Pr E STEC PCR Not Detected Stool E coli O157 PCR Not applicable Stl Enterotoxigenic E PCR Not Detected Stool EPEC (PCR) Detected A Stool EAEC (PCR) Not Detected Stl E. histolytica PCR Not Detected Stool Giardia Lamblia PCR Not Detected Stl P. shigelloides PCR Not Detected Stool Salmonella PCR Not Detected Stool Sapovirus (PCR) Not Detected Stl Shigella/EIEC PCR Not Detected St Y.enterocolitica PCR Not Detected Stool Vibrio (PCR) Not Detected Stl Vibrio cholerae PCR Not Detected Stl Norovirus GI/GII PCR Not Detected 05/28/24 05/29/24 05/29/24 20:23 06:05 07:32 Anion Gap 12 Estim Creat Clear Calc 43.3 Estimated GFR 33 POC Glucose 217 H 157 H Random Glucose 159 H Calcium 7.8 L D Stl C. cayetanensis PCR Stool Rotavirus A PCR Stl Adenov F 40/41 PCR Stool Astrovirus (PCR) Stool Campylobacter PCR Stool Cryptosporidium PCR Stl Sh Tox Pr E STEC PCR Stool E coli O157 PCR Stl Enterotoxigenic E PCR Stool EPEC (PCR) Stool EAEC (PCR) Stl E. histolytica PCR Stool Giardia Lamblia PCR Stl P. shigelloides PCR Stool Salmonella PCR Stool Sapovirus (PCR) Stl Shigella/EIEC PCR St Y.enterocolitica PCR Stool Vibrio (PCR) Stl Vibrio cholerae PCR Stl Norovirus GI/GII PCR 05/29/24 11:07 Anion Gap Estim Creat Clear Calc Estimated GFR POC Glucose 241 H Random Glucose Calcium Stl C. cayetanensis PCR Stool Rotavirus A PCR Stl Adenov F PCR Stool Astrovirus (PCR) Stool Campylobacter PCR Stool Cryptosporidium PCR Stl Sh Tox Pr E STEC PCR Stool E coli O157 PCR Stl Enterotoxigenic E PCR Stool EPEC (PCR) Stool EAEC (PCR) Stl E. histolytica PCR Stool Giardia Lamblia PCR Stl P. shigelloides PCR Stool Salmonella PCR Stool Sapovirus (PCR) Stl Shigella/EIEC PCR St Y.enterocolitica PCR Stool Vibrio (PCR) Stl Vibrio cholerae PCR Stl Norovirus GI/GII PCR Microbiology Microbiology Results: Microbiology 05/28/24 02:24 Blood Culture - Preliminary Blood - Venous No growth after 24 hours. 05/28/24 02:23 Blood Culture - Preliminary Blood - Venous No growth after 24 hours. Assessment and Plan (1) Acute renal failure: Status: Acute (2) E coli enteritis: Status: Acute (3) Campylobacter diarrhea: Status: Acute Plan Eleno Montoya is a 78 y/o man admitted with: MARTINE secondary to poor p.o. intake, vomiting and diarrhea Continue IV fluids perez placed Hold furosemide and valsartan Nephrology following Enteritis GI panel + for E coli and Campylobacter Initially started on IV azithromycin, will transition to IV levofloxacin and Flagyl diarrhea improving blood cultures negative hypotension asymptomatic due to volume depletion from diarrhea IVF/albumin hold baseline bp meds follow bp closely Urinary retention Perez placed Flomax on hold for hypotension Type 2 diabetes mellitus with hypoglycemia likely secondary to poor p.o. intake in the setting of insulin use. Hold insulin. Hold empagliflozin. cover with sliding scale Lactic acidosis, no severe sepsis criteria. Likely secondary to delayed clearance due to renal dysfunction resolved with IVF EKG changes EKG with twave inversions no chest pain, no previous for comparison d/w cardiology no further work up required - outpatient follow up Hyperlipidemia. hold ezetimibe, fenofibrate and rosuvastatin. BPH. Tamsulosin on hold due to soft BP. Essential hypertension. Hold metoprolol, furosemide, valsartan and amlodipine due to soft BP. Mood disorder. Continue Depakote, pramipexole and Seroquel. RUPERTO. Nocturnal CPAP. DVT prophylaxis: Lovenox Code status: Full Ongoing inpatient stay for acute renal failure management with IV fluids and close monitoring of renal function.. Quality Stroke Does the patient have a stroke diagnosis?: No VTE Prior VTE?: No VTE Risk Level:: Medical - moderate - high VTE Device Contraindication: Treatment Not Indicated VTE Drug Contraindication: N/A - Med Ordered
[2024-05-29] MEDS: metroNIDAZOLE/NS 500 MG/100 ML PIGGYBACK 100 MG IV ×2 (12:54→22:17)
[2024-05-29 14:49] LABS: Magnesium 1.9 mg/dL (1.6-2.6)
[2024-05-29 16:22] LABS: Glucose, Whole Blood 273 mg/dL (60-115)
[2024-05-29 21:23] LABS: Glucose, Whole Blood 209 mg/dL (60-115)
[2024-05-29] MEDS: Divalproex Sodium ER 250 MG TAB.ER.24H PO (22:17)
[2024-05-29] MEDS: QUEtiapine Fumarate 25 MG TABLET 12.5 MG PO (22:17)
[2024-05-30] VITALS (9 sets, daily range): BP systolic 110–138; BP diastolic 57–73; PULSE 56–90; RESP 20–24; TEMP 36.4–37.4; O2SAT 88–96
--- NOTE | 2024-05-30 | ECG_ITS ---
Test Reason : arrhythmia Blood Pressure : / mmHG Vent. Rate : 065 BPM Atrial Rate : 065 BPM P-R Int : 278 ms QRS Dur : 116 ms QT Int : 424 ms P-R-T Axes : 018 -01 089 degrees QTc Int : 440 ms Sinus rhythm with 1st degree A-V block Otherwise normal ECG When compared with ECG of 28-MAY-2024 21:32, No significant change was found Referred By: Ceci Baker Electronically Signed By:Leonidas Cui
[2024-05-30] MEDS: 0.9 % Sodium Chloride Flush 3 ML SYRINGE IVFLUSH ×3 (00:24→14:34)
[2024-05-30] MEDS: metroNIDAZOLE/NS 500 MG/100 ML PIGGYBACK 100 MG IV ×3 (06:07→21:30)
[2024-05-30 07:42] LABS: Glucose, Whole Blood 199 mg/dL (60-115)
[2024-05-30 07:48] LABS: Anion Gap 12 (12-20); Blood Urea Nitrogen 35 mg/dL (9-16); Calcium 8.4 mg/dL (8.4-10.2); Carbon Dioxide 20 mmol/L (22-29); Chloride 106 mmol/L (96-108); Creatinine Clr Calc Pharmacy 45.6; Estimated Glomerular Filt Rate 38; Glucose Random 192 mg/dL (60-115); Potassium 3.6 mmol/L (3.3-5.1); Sodium 134 mmol/L (135-145)
[2024-05-30] MEDS: Insulin Lispro 100 UNIT/ML 3 ML VIAL SUBCUT ×4 (07:56→21:31)
[2024-05-30] MEDS: Pramipexole Di-HCL 0.25 MG TABLET PO ×2 (09:18→21:30)
[2024-05-30] MEDS: Enoxaparin Sodium 30 MG/0.3 ML SYRINGE SUBCUT (09:19)
[2024-05-30 11:11] LABS: Glucose, Whole Blood 279 mg/dL (60-115)
[2024-05-30] MEDS: Furosemide 20 MG/2 ML VIAL IVPUSH (11:44)
[2024-05-30] MEDS: levoFLOXacin/D5W 500 MG/100 ML PIGGYBACK 100 MG IV (11:44)
[2024-05-30 11:59] LABS: B Type Natriuretic Peptide 382 pg/mL (<100)
--- NOTE | 2024-05-30 12:38 | PC.NURSE ---
perez cath removed , urinated x 1 in the bathroom, had small BM . Oxygen removed from the pt,93 % on RA at rest. Ambulated on RA ,saturation down to 88%, 2L via NC applied.
--- NOTE | 2024-05-30 14:18 | P.PNIM_ITS ---
Subjective Subjective Date of Service: 05/30/24 Interval History: seen and examined this morning follow up for diarrhea diarrhea slowing down, no abdominal pain or fever Review of Systems Review of Systems: Yes all other systems are reviewed and are negative Constitutional Constitutional: Denies chills and Denies fever(s) Cardiovascular Cardiovascular: Denies dyspnea Respiratory Respiratory: Denies cough and Denies dyspnea Gastrointestinal Gastrointestinal: Denies abdominal pain, Denies nausea and Denies vomiting Physical Exam 2 Vital Signs: Vital Signs: Last Vital Signs Temp 98.2 F 05/30/24 11:39 Pulse 69 05/30/24 11:39 Resp 20 05/30/24 11:39 BP 121/65 05/30/24 11:39 Pulse Ox 95 05/30/24 13:47 O2 Del Method Nasal Cannula 05/30/24 13:47 O2 Flow Rate 1 05/30/24 13:47 Oxygen Flow Rate 2 05/27/24 22:26 BMI result Body Mass Index 43.9 Const: General: cooperative, comfortable, alert and awake Nutritional Appearance: average body habitus Orientation/consciousness: patient oriented x3 Resp: Effort & Inspection: normal respiratory effort, able to speak in complete sentences, no respiratory distress and no use of accessory muscles A uscultation: clear to auscultation bilaterally and no crackles Cardio: Rate: regular rate GI: Inspection: No distended and Yes obesity Palpation (GI): Soft to palpation and nontender Neuro: General: patient oriented x3, moves all extremities and CN's II-XI intact bilaterally Objective Data Active Medications Acetaminophen (Acetaminophen 325 Mg Tablet) 975 mg PO Q6H PRN PRN Reason: Pain, Mild (Pain Scale 1-3), fever or headache Albuterol Sulfate (Albuterol Sulfate 90 Mcg 8 Gm Inhaler) 2 puff INHALE Q6H PRN PRN Reason: SOB/Wheezing Calcium Carbonate (Calcium Carbonate 750 Mg Tab.Chew) 750 mg PO Q4H PRN PRN Reason: Heartburn Divalproex Sodium (Divalproex Sodium Er 250 Mg Tab.Er.24h) 250 mg PO BEDTIME [facility] Last Admin: 05/29/24 22:17 Dose: 250 mg Documented By: ELAN Enoxaparin Sodium (Enoxaparin Sodium 40 Mg/0.4 Ml Syringe) 40 mg SUBCUT Q24H [facility] Glucose (Glucose Gel 15 Gm Gel..Gram.) 15 gm PO Q15M PRN; Protocol PRN Reason: per Hypoglycemia Standing Ord. Dextrose (D10) 250 mls @ 750 mls/hr IV Q15M PRN; Protocol PRN Reason: per Hypoglycemia Standing Ord. Levofloxacin (Levaquin) 500 mg in 100 mls @ 100 mls/hr IV Q24H [facility] Last Infusion: 05/30/24 12:47 Dose: Infused Documented By: FADIA Metronidazole (Flagyl) 500 mg in 100 mls @ 100 mls/hr IV Q8H [facility] Last Admin: 05/30/24 13:15 Dose: 100 mls/hr Documented By: FADIA Insulin Human Lispro (Insulin Lispro 100 Unit/Ml 3 Ml Vial) 0 unit SUBCUT QIDACHS [facility]; Protocol Last Admin: 05/30/24 11:44 Dose: 6 unit Documented By: FADIA Lactic Acid (Ammonium Lactate 12 % Lotion 226 Gm Bottle) 1 appl TOPICAL DAILY [facility]; Protocol Last Admin: 05/29/24 08:08 Dose: Not Given Documented By: WHIT Non-Admin Reason: waiting for pharmacy to bring up Melatonin (Melatonin 3 Mg Tablet) 6 mg PO BEDTIME PRN PRN Reason: Insomnia Last Admin: 05/28/24 20:57 Dose: 6 mg Documented By: PAULINE Metoprolol Succinate (Metoprolol Succinate Er 25 Mg Tab.Er.24h) 25 mg PO DAILY [facility]; Protocol Pramipexole Dihydrochloride (Pramipexole Di-Hcl 0.25 Mg Tablet) 0.25 mg PO BID [facility] Last Admin: 05/30/24 09:18 Dose: 0.25 mg Documented By: FADIA Quetiapine Fumarate (Quetiapine Fumarate 25 Mg Tablet) 12.5 mg PO BEDTIME [facility] Last Admin: 05/29/24 22:17 Dose: 12.5 mg Documented By: ELAN Sodium Chloride (0.9 % Sodium Chloride Flush 3 Ml Syringe) 3 ml IVFLUSH QSHIFT [facility] Last Admin: 05/30/24 07:31 Dose: 3 ml Documented By: FADIA Tamsulosin HCl (Tamsulosin Hcl 0.4 Mg Capsule) 0.4 mg PO DAILY [facility] Labs 05/28/24 04:17 05/30/24 06:39 Labs: Laboratory Results - last 24 hr 05/29/24 05/29/24 05/29/24 06:05 16:18 20:54 Anion Gap Estim Creat Clear Calc Estimated GFR POC Glucose 273 H 209 H Random Glucose Calcium Magnesium 1.9 B-Natriuretic Peptide 05/30/24 05/30/24 05/30/24 06:39 07:12 10:55 Anion Gap 12 Estim Creat Clear Calc 45.6 Estimated GFR 38 POC Glucose 199 H 279 H Random Glucose 192 H Calcium 8.4 D Magnesium B-Natriuretic Peptide 05/30/24 11:22 Anion Gap Estim Creat Clear Calc Estimated GFR POC Glucose Random Glucose Calcium Magnesium B-Natriuretic Peptide 382 H Microbiology Microbiology Results: Microbiology 05/28/24 02:24 Blood Culture - Preliminary Blood - Venous No growth after 48 hours. 05/28/24 02:23 Blood Culture - Preliminary Blood - Venous No growth after 48 hours. Assessment and Plan (1) Campylobacter diarrhea: Status: Acute (2) E coli enteritis: Status: Acute (3) Acute renal failure: Status: Acute Plan Eleno Montoya is a 78 y/o man admitted with: MARTINE secondary to poor p.o. intake, vomiting and diarrhea Continue IV fluids perez placed Hold furosemide and valsartan Nephrology following Enteritis GI panel + for E coli and Campylobacter Initially started on IV azithromycin, will transition to IV levofloxacin and Flagyl diarrhea improving blood cultures negative hypotension asymptomatic due to volume depletion from diarrhea s/p IVF/albumin hold baseline bp meds resolved Urinary retention Perez placed Flomax on hold for hypotension voiding trial Type 2 diabetes mellitus with hypoglycemia likely secondary to poor p.o. intake in the setting of insulin use no further episodes of hypoglycemia Hold insulin. Hold empagliflozin. cover with sliding scale Lactic acidosis, no severe sepsis criteria. Likely secondary to delayed clearance due to renal dysfunction resolved with IVF EKG changes EKG with twave inversions no chest pain, no previous for comparison d/w cardiology no further work up required - outpatient follow up Hyperlipidemia. hold ezetimibe, fenofibrate and rosuvastatin. BPH. Tamsulosin on hold due to soft BP. Essential hypertension. Hold metoprolol, furosemide, valsartan and amlodipine due to soft BP. Mood disorder. Continue Depakote, pramipexole and Seroquel. RUPERTO. Nocturnal CPAP. DVT prophylaxis: Lovenox Code status: Full Ongoing inpatient stay for acute renal failure management with IV fluids and close monitoring of renal function.. Quality Stroke Does the patient have a stroke diagnosis?: No VTE Prior VTE?: No VTE Risk Level:: Medical - moderate - high VTE Device Contraindication: Treatment Not Indicated VTE Drug Contraindication: N/A - Med Ordered
--- NOTE | 2024-05-30 14:37 | PC.NURSE ---
Ammonium Lactate not available yet , pharmacy called .Will administer as soon as available
--- NOTE | 2024-05-30 16:12 | PC.NURSE ---
having problem with urination , bladder scanned for more than 900 ml , pt urinated in the bathroom , bladder scanned again and still 540 ml PVR , Pt stated that he dosnt want catheter but will do whatever is necessary. BRITTANI Ornelas was notified , will st cath x1 and resume prostate meds
[2024-05-30 16:49] LABS: Glucose, Whole Blood 250 mg/dL (60-115)
--- NOTE | 2024-05-30 17:05 | ECG_ITS ---
Test Reason : ? change in rhythm Blood Pressure : / mmHG Vent. Rate : 088 BPM Atrial Rate : 000 BPM P-R Int : 000 ms QRS Dur : 112 ms QT Int : 372 ms P-R-T Axes : 000 004 086 degrees QTc Int : 450 ms Accelerated Junctional rhythm with retrograde conduction Nonspecific ST abnormality Inferior infarct Abnormal ECG When compared with ECG of 30-MAY-2024 08:13, No significant changes seen Referred By: Ceci Baker Electronically Signed By:Leonidas Cui
[2024-05-30 21:13] LABS: Glucose, Whole Blood 224 mg/dL (60-115)
[2024-05-30] MEDS: QUEtiapine Fumarate 25 MG TABLET 12.5 MG PO (21:30)
[2024-05-30] MEDS: Divalproex Sodium ER 250 MG TAB.ER.24H PO (21:30)
[2024-05-31] VITALS: BP 126/59; PULSE 64; RESP 20; TEMP 36.6; O2SAT 93
[2024-05-31 03:41] VITALS: BP 118/61; PULSE 62; RESP 20; TEMP 36.7; O2SAT 93
[2024-05-31] MEDS: metroNIDAZOLE/NS 500 MG/100 ML PIGGYBACK 100 MG IV ×3 (05:36→19:37)
--- NOTE | 2024-05-31 06:07 | PC.NURSE ---
Patient refused to wear CPAP overnight d/t mask not fitting. Patient educated about the risks of not wearing CPAP when diagnosed with RUPERTO. Encouraged to have family member bring in his own.
--- NOTE | 2024-05-31 06:58 | PC.NURSE ---
Patient unable to urinate overnight. Bladder scanned for 492 ml. Provider notified and perez catheter placed per MD order. Initial drainage was 1200 ml . Draining CYU. Patient tolerated well.
[2024-05-31 07:28] LABS: Anion Gap 14 (12-20); Blood Urea Nitrogen 27 mg/dL (9-16); Calcium 8.3 mg/dL (8.4-10.2); Carbon Dioxide 19 mmol/L (22-29); Chloride 105 mmol/L (96-108); Creatinine Clr Calc Pharmacy 51.8; Estimated Glomerular Filt Rate 44; Glucose Random 198 mg/dL (60-115); Potassium 3.7 mmol/L (3.3-5.1); Sodium 134 mmol/L (135-145)
[2024-05-31 07:52] LABS: Glucose, Whole Blood 209 mg/dL (60-115)
[2024-05-31 08:00] VITALS: BP 143/69; PULSE 60; RESP 20; TEMP 37.1; O2SAT 93
[2024-05-31] MEDS: Insulin Lispro 100 UNIT/ML 3 ML VIAL SUBCUT ×4 (08:19→19:36)
[2024-05-31] MEDS: 0.9 % Sodium Chloride Flush 3 ML SYRINGE IVFLUSH ×2 (08:19→16:26)
[2024-05-31] MEDS: Enoxaparin Sodium 40 MG/0.4 ML SYRINGE SUBCUT (08:19)
[2024-05-31] MEDS: Tamsulosin HCL 0.4 MG CAPSULE PO (08:19)
[2024-05-31] MEDS: Pramipexole Di-HCL 0.25 MG TABLET PO ×2 (08:19→19:36)
[2024-05-31] MEDS: Ammonium Lactate 12 % Lotion 226 GM BOTTLE 1 APPL TOPICAL (08:25)
--- NOTE | 2024-05-31 09:57 | PC.NURSE ---
oxygen satutarion 89-90 % on RA at rest , 1Liter on on O2 sat 93%
[2024-05-31] MEDS: Furosemide 20 MG/2 ML VIAL IVPUSH (10:14)
[2024-05-31 11:36] LABS: Glucose, Whole Blood 283 mg/dL (60-115)
[2024-05-31 11:48] VITALS: BP 127/69; PULSE 65; RESP 20; TEMP 36.8; O2SAT 95
--- NOTE | 2024-05-31 12:16 | P.PNIM_ITS ---
Subjective Subjective Date of Service: 05/31/24 Interval History: Seen and examined this morning Follow-up for MARTINE, Campylobacter, E coli diarrhea Denies shortness of breath Review of Systems Review of Systems: Yes all other systems are reviewed and are negative Constitutional Constitutional: Denies chills and Denies fever(s) Physical Exam 2 Vital Signs: Vital Signs: Last Vital Signs Temp 98.3 F 05/31/24 11:48 Pulse 65 05/31/24 11:48 Resp 20 05/31/24 11:48 BP 127/69 05/31/24 11:48 Pulse Ox 95 05/31/24 11:48 O2 Del Method Nasal Cannula 05/31/24 11:48 O2 Flow Rate 1 05/31/24 11:48 Oxygen Flow Rate 2 05/27/24 22:26 BMI result Body Mass Index 43.9 Const: General: cooperative, comfortable, alert and awake Nutritional Appearance: average body habitus Orientation/consciousness: patient oriented x3 Resp: Effort & Inspection: normal respiratory effort, able to speak in complete sentences, no respiratory distress and no use of accessory muscles A uscultation: clear to auscultation bilaterally and no crackles Cardio: Rate: regular rate GI: Inspection: No distended and Yes obesity Palpation (GI): Soft to palpation and nontender Neuro: General: patient oriented x3, moves all extremities and CN's II-XI intact bilaterally Objective Data Active Medications Acetaminophen (Acetaminophen 325 Mg Tablet) 975 mg PO Q6H PRN PRN Reason: Pain, Mild (Pain Scale 1-3), fever or headache Albuterol Sulfate (Albuterol Sulfate 90 Mcg 8 Gm Inhaler) 2 puff INHALE Q6H PRN PRN Reason: SOB/Wheezing Calcium Carbonate (Calcium Carbonate 750 Mg Tab.Chew) 750 mg PO Q4H PRN PRN Reason: Heartburn Divalproex Sodium (Divalproex Sodium Er 250 Mg Tab.Er.24h) 250 mg PO BEDTIME [facility] Last Admin: 05/30/24 21:30 Dose: 250 mg Documented By: ELAN Enoxaparin Sodium (Enoxaparin Sodium 40 Mg/0.4 Ml Syringe) 40 mg SUBCUT Q24H [facility] Last Admin: 05/31/24 08:19 Dose: 40 mg Documented By: FADIA Glucose (Glucose Gel 15 Gm Gel..Gram.) 15 gm PO Q15M PRN; Protocol PRN Reason: per Hypoglycemia Standing Ord. Dextrose (D10) 250 mls @ 750 mls/hr IV Q15M PRN; Protocol PRN Reason: per Hypoglycemia Standing Ord. Levofloxacin (Levaquin) 500 mg in 100 mls @ 100 mls/hr IV Q24H [facility] Last Infusion: 05/30/24 12:47 Dose: Infused Documented By: FADIA Metronidazole (Flagyl) 500 mg in 100 mls @ 100 mls/hr IV Q8H [facility] Last Infusion: 05/31/24 06:41 Dose: Infused Documented By: ELAN Insulin Human Lispro (Insulin Lispro 100 Unit/Ml 3 Ml Vial) 0 unit SUBCUT QIDACHS [facility]; Protocol Last Admin: 05/31/24 08:19 Dose: 4 unit Documented By: FADIA Lactic Acid (Ammonium Lactate 12 % Lotion 226 Gm Bottle) 1 appl TOPICAL DAILY [facility]; Protocol Last Admin: 05/31/24 08:25 Dose: 1 appl Documented By: FADIA Melatonin (Melatonin 3 Mg Tablet) 6 mg PO BEDTIME PRN PRN Reason: Insomnia Last Admin: 05/28/24 20:57 Dose: 6 mg Documented By: PAULINE Metoprolol Succinate (Metoprolol Succinate Er 25 Mg Tab.Er.24h) 25 mg PO DAILY [facility]; Protocol Pramipexole Dihydrochloride (Pramipexole Di-Hcl 0.25 Mg Tablet) 0.25 mg PO BID [facility] Last Admin: 05/31/24 08:19 Dose: 0.25 mg Documented By: FADIA Quetiapine Fumarate (Quetiapine Fumarate 25 Mg Tablet) 12.5 mg PO BEDTIME [facility] Last Admin: 05/30/24 21:30 Dose: 12.5 mg Documented By: ELAN Sodium Chloride (0.9 % Sodium Chloride Flush 3 Ml Syringe) 3 ml IVFLUSH QSHIFT [facility] Last Admin: 05/31/24 08:19 Dose: 3 ml Documented By: FADIA Tamsulosin HCl (Tamsulosin Hcl 0.4 Mg Capsule) 0.4 mg PO DAILY [facility] Last Admin: 05/31/24 08:19 Dose: 0.4 mg Documented By: FADIA Labs 05/28/24 04:17 05/31/24 06:50 Labs: Laboratory Results - last 24 hr 05/30/24 05/30/24 05/31/24 16:37 20:57 06:50 Anion Gap 14 Estim Creat Clear Calc 51.8 Estimated GFR 44 POC Glucose 250 H 224 H Random Glucose 198 H Calcium 8.3 L 05/31/24 05/31/24 07:40 11:01 Anion Gap Estim Creat Clear Calc Estimated GFR POC Glucose 209 H 283 H Random Glucose Calcium Assessment and Plan (1) Campylobacter diarrhea: Status: Acute (2) E coli enteritis: Status: Acute (3) Acute renal failure: Status: Acute Plan Eleno Montoya is a 78 y/o man admitted with: Acute hypoxic respiratory failure Attempted to wean off oxygen but desaturated to the high 80s, still requiring at least 1 L of supplemental oxygen Denies any history of underlying lung disease, denies any history of heart failure although does take prn lasix for edema Repeat chest x-ray similar to previous on admission with some vascular congestion, blood pressure now stable, we will give Lasix and assess for effect Patient does report he has been having shortness of breath for several years in the has had extensive workup May require home O2 evaluation prior to discharge MARTINE secondary to poor p.o. intake, vomiting and diarrhea IVF stopped Hold furosemide and valsartan Nephrology following Creatinine continues to trend down, unknown baseline Enteritis GI panel + for E coli and Campylobacter Initially started on IV azithromycin, will transition to IV levofloxacin and Flagyl diarrhea improving blood cultures negative hypotension asymptomatic due to volume depletion from diarrhea s/p IVF/albumin hold baseline bp meds bp improved Urinary retention Perez placed Flomax resumed failed voiding trial, perez re-placed Type 2 diabetes mellitus with hypoglycemia likely secondary to poor p.o. intake in the setting of insulin use no further episodes of hypoglycemia Hold insulin. Hold empagliflozin. cover with sliding scale Lactic acidosis, no severe sepsis criteria. Likely secondary to delayed clearance due to renal dysfunction resolved with IVF EKG changes EKG with twave inversions no chest pain, no previous for comparison d/w cardiology no further work up required - outpatient follow up Hyperlipidemia. hold ezetimibe, fenofibrate and rosuvastatin. BPH. resume Tamsulosin Essential hypertension. Hold metoprolol, furosemide, valsartan and amlodipine due to soft BP. Mood disorder. Continue Depakote, pramipexole and Seroquel. RUPERTO. Nocturnal CPAP. DVT prophylaxis: Lovenox Code status: Full Ongoing inpatient stay for acute renal failure management with IV fluids and close monitoring of renal function.. Quality Stroke Does the patient have a stroke diagnosis?: No VTE Prior VTE?: No VTE Risk Level:: Medical - moderate - high VTE Device Contraindication: Treatment Not Indicated VTE Drug Contraindication: N/A - Med Ordered
[2024-05-31] MEDS: levoFLOXacin/D5W 500 MG/100 ML PIGGYBACK 100 MG IV (12:21)
[2024-05-31 16:00] VITALS: BP 145/64; PULSE 59; RESP 20; TEMP 36.5; O2SAT 98
[2024-05-31 16:10] LABS: Glucose, Whole Blood 262 mg/dL (60-115)
[2024-05-31 19:26] LABS: Glucose, Whole Blood 259 mg/dL (60-115)
[2024-05-31] MEDS: Divalproex Sodium ER 250 MG TAB.ER.24H PO (19:35)
[2024-05-31] MEDS: QUEtiapine Fumarate 25 MG TABLET 12.5 MG PO (19:35)
[2024-05-31 19:46] VITALS: BP 139/65; PULSE 65; RESP 18; TEMP 36.8; O2SAT 90
[2024-06-01] VITALS (7 sets, daily range): BP systolic 108–162; BP diastolic 39–76; PULSE 45–64; RESP 19–23; TEMP 36–36.5; O2SAT 92–96
[2024-06-01] MEDS: 0.9 % Sodium Chloride Flush 3 ML SYRINGE IVFLUSH ×4 (00:02→21:21)
[2024-06-01] MEDS: metroNIDAZOLE/NS 500 MG/100 ML PIGGYBACK 100 MG IV ×3 (05:09→21:19)
[2024-06-01 06:58] LABS: Anion Gap 15 (12-20); Blood Urea Nitrogen 25 mg/dL (9-16); Calcium 8.5 mg/dL (8.4-10.2); Carbon Dioxide 23 mmol/L (22-29); Chloride 102 mmol/L (96-108); Creatinine Clr Calc Pharmacy 56.2; Estimated Glomerular Filt Rate 48; Glucose Random 205 mg/dL (60-115); Potassium 3.7 mmol/L (3.3-5.1); Sodium 136 mmol/L (135-145)
[2024-06-01 07:53] LABS: Glucose, Whole Blood 191 mg/dL (60-115)
[2024-06-01] MEDS: Pramipexole Di-HCL 0.25 MG TABLET PO ×2 (08:18→21:21)
[2024-06-01] MEDS: Enoxaparin Sodium 40 MG/0.4 ML SYRINGE SUBCUT (08:18)
[2024-06-01] MEDS: Insulin Lispro 100 UNIT/ML 3 ML VIAL SUBCUT ×4 (08:18→19:51)
[2024-06-01] MEDS: Tamsulosin HCL 0.4 MG CAPSULE PO (08:18)
[2024-06-01] MEDS: Ammonium Lactate 12 % Lotion 226 GM BOTTLE 1 APPL TOPICAL (08:25)
--- NOTE | 2024-06-01 11:03 | MHC.CM.PN ---
Per ROUNDS discussion, Patient is not yet medically cleared for dc (pending Neuro); home is the goal and CM will continue to follow.
[2024-06-01 11:18] LABS: Glucose, Whole Blood 281 mg/dL (60-115)
[2024-06-01] MEDS: levoFLOXacin/D5W 500 MG/100 ML PIGGYBACK 100 MG IV (11:31)
--- NOTE | 2024-06-01 13:15 | P.PNIM_ITS ---
Subjective Subjective Date of Service: 06/01/24 Interval History: Seen and examined this morning Follow-up for MARTINE, Campylobacter, E coli diarrhea Denies shortness of breath Review of Systems Review of Systems: Yes all other systems are reviewed and are negative Constitutional Constitutional: Denies chills and Denies fever(s) Physical Exam 2 Vital Signs: Vital Signs: Last Vital Signs Temp 97.5 F 06/01/24 11:24 Pulse 61 06/01/24 11:24 Resp 20 06/01/24 11:24 BP 152/76 H 06/01/24 11:24 Pulse Ox 94 06/01/24 11:24 O2 Del Method Nasal Cannula 06/01/24 11:24 O2 Flow Rate 1 06/01/24 11:24 Oxygen Flow Rate 2 05/27/24 22:26 BMI result Body Mass Index 43.9 Appearing in no acute distress lung sounds are clear to auscultation heart regular rate rhythm, clear S1, S2 positive bowel sounds, abdomen is soft, nontender neuro patient is alert x3, no focal deficits Objective Data Active Medications Acetaminophen (Acetaminophen 325 Mg Tablet) 975 mg PO Q6H PRN PRN Reason: Pain, Mild (Pain Scale 1-3), fever or headache Albuterol Sulfate (Albuterol Sulfate 90 Mcg 8 Gm Inhaler) 2 puff INHALE Q6H PRN PRN Reason: SOB/Wheezing Calcium Carbonate (Calcium Carbonate 750 Mg Tab.Chew) 750 mg PO Q4H PRN PRN Reason: Heartburn Divalproex Sodium (Divalproex Sodium Er 250 Mg Tab.Er.24h) 250 mg PO BEDTIME [facility] Last Admin: 05/31/24 19:35 Dose: 250 mg Documented By: DEWEY Enoxaparin Sodium (Enoxaparin Sodium 40 Mg/0.4 Ml Syringe) 40 mg SUBCUT Q24H [facility] Last Admin: 06/01/24 08:18 Dose: 40 mg Documented By: SALAS Glucose (Glucose Gel 15 Gm Gel..Gram.) 15 gm PO Q15M PRN; Protocol PRN Reason: per Hypoglycemia Standing Ord. Dextrose (D10) 250 mls @ 750 mls/hr IV Q15M PRN; Protocol PRN Reason: per Hypoglycemia Standing Ord. Levofloxacin (Levaquin) 500 mg in 100 mls @ 100 mls/hr IV Q24H [facility] Last Infusion: 06/01/24 13:13 Dose: Infused Documented By: SALAS Metronidazole (Flagyl) 500 mg in 100 mls @ 100 mls/hr IV Q8H [facility] Last Infusion: 06/01/24 06:13 Dose: Infused Documented By: BRIDGETTE Insulin Human Lispro (Insulin Lispro 100 Unit/Ml 3 Ml Vial) 0 unit SUBCUT QIDACHS [facility]; Protocol Last Admin: 06/01/24 11:30 Dose: 6 unit Documented By: SALAS Lactic Acid (Ammonium Lactate 12 % Lotion 226 Gm Bottle) 1 appl TOPICAL DAILY [facility]; Protocol Last Admin: 06/01/24 08:25 Dose: 1 appl Documented By: SALAS Melatonin (Melatonin 3 Mg Tablet) 6 mg PO BEDTIME PRN PRN Reason: Insomnia Last Admin: 05/28/24 20:57 Dose: 6 mg Documented By: PAULINE Metoprolol Succinate (Metoprolol Succinate Er 25 Mg Tab.Er.24h) 25 mg PO DAILY [facility]; Protocol Pramipexole Dihydrochloride (Pramipexole Di-Hcl 0.25 Mg Tablet) 0.25 mg PO BID [facility] Last Admin: 06/01/24 08:18 Dose: 0.25 mg Documented By: SALAS Quetiapine Fumarate (Quetiapine Fumarate 25 Mg Tablet) 12.5 mg PO BEDTIME [facility] Last Admin: 05/31/24 19:35 Dose: 12.5 mg Documented By: DEWEY Sodium Chloride (0.9 % Sodium Chloride Flush 3 Ml Syringe) 3 ml IVFLUSH QSHIFT [facility] Last Admin: 06/01/24 08:18 Dose: 3 ml Documented By: SALAS Tamsulosin HCl (Tamsulosin Hcl 0.4 Mg Capsule) 0.4 mg PO DAILY [facility] Last Admin: 06/01/24 08:18 Dose: 0.4 mg Documented By: SALAS Labs 05/28/24 04:17 06/01/24 06:14 Labs: Laboratory Results - last 24 hr 05/31/24 05/31/24 06/01/24 15:56 19:21 06:14 Hold Purple Top SEE NOTE Anion Gap 15 Estim Creat Clear Calc 56.2 Estimated GFR 48 POC Glucose 262 H 259 H Random Glucose 205 H Calcium 8.5 07/15/24 07/15/24 07:46 11:11 Hold Purple Top Anion Gap Estim Creat Clear Calc Estimated GFR POC Glucose 191 H 281 H Random Glucose Calcium Assessment and Plan (1) Campylobacter diarrhea: Status: Acute (2) E coli enteritis: Status: Acute (3) Acute renal failure: Status: Acute Plan Eleno Montoya is a 78 y/o man admitted with: Acute hypoxic respiratory failure Attempted to wean off oxygen but desaturated to the high 80s, still requiring at least 1 L of supplemental oxygen Denies any history of underlying lung disease, denies any history of heart failure although does take prn lasix for edema Repeat chest x-ray similar to previous on admission with some vascular congestion Patient does report he has been having shortness of breath for several years in the has had extensive workup echocardiogram May require home O2 evaluation prior to discharge PT consult MARTINE secondary to poor p.o. intake, vomiting and diarrhea IVF stopped Hold furosemide and valsartan Nephrology following Creatinine continues to trend down, unknown baseline Enteritis GI panel + for E coli and Campylobacter Initially started on IV azithromycin, will transition to IV levofloxacin and Flagyl diarrhea improving blood cultures negative hypotension, Resolved asymptomatic due to volume depletion from diarrhea s/p IVF/albumin hold baseline bp meds bp improved Urinary retention Perez placed Flomax resumed failed voiding trial, perez re-placed Type 2 diabetes mellitus with hypoglycemia likely secondary to poor p.o. intake in the setting of insulin use no further episodes of hypoglycemia Hold insulin. Hold empagliflozin. cover with sliding scale Lactic acidosis, no severe sepsis criteria. Likely secondary to delayed clearance due to renal dysfunction resolved with IVF EKG changes EKG with twave inversions no chest pain, no previous for comparison d/w cardiology no further work up required - outpatient follow up Hyperlipidemia. hold ezetimibe, fenofibrate and rosuvastatin. BPH. resume Tamsulosin Essential hypertension. Hold metoprolol, furosemide, valsartan and amlodipine due to soft BP. Mood disorder. Continue Depakote, pramipexole and Seroquel. RUPERTO. Nocturnal CPAP. DVT prophylaxis: Keren Attending Dr. Marroquin Code status: Full Ongoing inpatient stay for acute renal failure management with IV fluids and close monitoring of renal function.. Quality Stroke Does the patient have a stroke diagnosis?: No VTE Prior VTE?: No VTE Risk Level:: Medical - moderate - high VTE Device Contraindication: Treatment Not Indicated VTE Drug Contraindication: N/A - Med Ordered
[2024-06-01 14:15] LABS: B Type Natriuretic Peptide 397 pg/mL (<100)
[2024-06-01 15:50] LABS: Glucose, Whole Blood 314 mg/dL (60-115)
[2024-06-01 19:34] LABS: Glucose, Whole Blood 319 mg/dL (60-115)
--- NOTE | 2024-06-01 19:56 | P.PNNP_ITS ---
Subjective Subjective Date of Service: 06/01/24 Interval history: Seen and examined this morning; Follow-up for MARTINE; Renal function improving Physical Exam 2 Vital Signs: Vital Signs: Last Vital Signs Temp 97.7 F 06/01/24 19:23 Pulse 55 06/01/24 19:23 Resp 19 06/01/24 19:23 BP 126/60 06/01/24 19:23 Pulse Ox 93 06/01/24 19:23 O2 Del Method Nasal Cannula 06/01/24 19:23 O2 Flow Rate 1 06/01/24 19:23 Oxygen Flow Rate 2 05/27/24 22:26 BMI result Body Mass Index 43.9 Const: General: no acute distress Eyes: EOM: EOMs intact bilaterally Resp: Auscultation: diminished lung sounds Cardio: Rate: regular rate GI: Palpation (GI): Soft to palpation Neuro: General: moves all extremities Objective Data Labs 05/28/24 04:17 06/01/24 06:14 Labs: Laboratory Results - last 24 hr 06/01/24 06/01/24 06/01/24 06:14 07:46 11:11 Hold Purple Top SEE NOTE Sodium 136 Potassium 3.7 Chloride 102 Carbon Dioxide 23 Anion Gap 15 BUN 25 H Creatinine 1.43 H Estim Creat Clear Calc 56.2 Estimated GFR 48 POC Glucose 191 H 281 H Random Glucose 205 H Calcium 8.5 B-Natriuretic Peptide 06/01/24 06/01/24 06/01/24 13:48 15:46 19:29 Hold Purple Top Sodium Potassium Chloride Carbon Dioxide Anion Gap BUN Creatinine Estim Creat Clear Calc Estimated GFR POC Glucose 314 H 319 H Random Glucose Calcium B-Natriuretic Peptide 397 H Microbiology Microbiology Results: Microbiology 05/28/24 02:24 Blood - Venous Blood Culture - Preliminary No growth after 48 hours. 05/28/24 02:23 Blood - Venous Blood Culture - Preliminary No growth after 48 hours. Procedures Date of Service Date of Service: 06/01/24 Assessment & Plan Assessment and plan (1) Acute renal failure: Status: Acute Plan MARTINE due to tubular injuey Renal function is improving. Hold and all antihypertensives and diuretics Expect complete renal recovery. Labs AM Progress Note: Quality Stroke Does the patient have a stroke diagnosis?: No
[2024-06-01] MEDS: ondansetron HCL 4 MG/2 ML VIAL IVPUSH (20:48)
[2024-06-01] MEDS: QUEtiapine Fumarate 25 MG TABLET 12.5 MG PO (21:20)
[2024-06-01] MEDS: Divalproex Sodium ER 250 MG TAB.ER.24H PO (21:20)
[2024-06-01] MEDS: Acetaminophen 325 MG TABLET 975 MG PO (21:20)
[2024-06-02] VITALS (9 sets, daily range): BP systolic 134–152; BP diastolic 60–80; PULSE 28–96; RESP 16–22; TEMP 36.1–36.6; O2SAT 92–94
--- NOTE | 2024-06-02 | ECG_ITS ---
Test Reason : bradycardia Blood Pressure : / mmHG Vent. Rate : 036 BPM Atrial Rate : 050 BPM P-R Int : 000 ms QRS Dur : 096 ms QT Int : 570 ms P-R-T Axes : 011 013 079 degrees QTc Int : 440 ms Sinus bradycardia with 2nd degree A-V block (Mobitz I) Nonspecific ST and T wave abnormality Abnormal ECG When compared with ECG of 30-MAY-2024 16:53, Sinus rhythm has replaced Junctional rhythm Vent. rate has decreased BY 52 BPM Referred By: Jony Peng Electronically Signed By:GUTIERREZ MACE MD
--- NOTE | 2024-06-02 00:24 | PC.NURSE ---
md notified of hr 30-40's while sleeping, with lowest being 28. pt easily aroused, vital signs stable.
--- NOTE | 2024-06-02 03:56 | PM.EVENT ---
Event Note Date of Service: 06/02/24 Event Note: Nurse reported patient with bradycardia. Heart rate as low as 26. BP okay. Patient without symptoms. Will obtain EKG and consulting Cardiology Time Spent With Patient Time: Total time managing care of this patient today ____ minutes.
[2024-06-02] MEDS: metroNIDAZOLE/NS 500 MG/100 ML PIGGYBACK 100 MG IV ×3 (04:03→20:01)
--- NOTE | 2024-06-02 07:00 | CA_ITS ---
Transthoracic Echocardiogram Patient (Last, First, Middle): Eleno Montoya E Gender: Male Date of : 1945 Age: 78 Procedure Date: 06/02/2024 Procedure Type: Transthoracic Echocardiogram Location: [facility] [place] Height: 172.72 cm Weight: 130.64 kg BSA: 2.39 m2 Heart Rate: bpm BP: 152 / 76 mmHg Machine Rug Cleaner: MARISEL Referring MD: Bev Yousif NP Skiver Heel Tap: Abhishek Olvera MD Symptoms: CHF Study Quality: Technically Difficult, contrast ECG Rhythm: Sinus Conclusions: - 1. Technically difficult study despite use of contrast agent 2. Normal LV ejection fraction 60 65% with elevated filling pressures 3. Mild aortic stenosis 4. RV systolic pressure could not be accurately calculated as RA pressures could not be determined although RV to RA gradient is elevated at 52 mm Hg 5. Mildly dilated ascending aorta Findings Procedure Information Contrast agent, definity, is being given per protocol without apparent complications. The quality of the study was despite the use of contrast and endocardial definition remains poor. The study quality is limited by patients body habitus. Left Ventricle Normal left ventricular size, thickness, and systolic function. The visually estimated ejection fraction is between 60-65%. Spectral Doppler is indicative of an impaired relaxation filling pattern. Elevated filling pressures. E/E prime ratio is >15, consistent with elevated filling pressures. Right Ventricle There is normal right ventricular systolic function. Atria The left atrium was not well visualized. Interatrial shunt cannot be excluded. The right atrium was not well visualized. Aortic Valve The aortic valve was not well visualized. There is mild calcification of the aortic valve. There is mild aortic valve stenosis. The peak aortic gradient is 12 mmHg.The mean gradient is 6 mmHg. The aortic valve area is 1.66 cm2. Mitral Valve There is mild anterior and posterior mitral leaflet thickening. The anterior mitral leaflet has restricted mobility. There is trace mitral valve regurgitation. There is no mitral valve stenosis. Pulmonic Valve The pulmonic valve was not well visualized. Tricuspid Valve The tricuspid valve was not well visualized. There is mild tricuspid valve regurgitation. The right ventricular systolic pressure is not calculated. Indeterminate right atrial pressure. Great Vessels The aorta was not well visualized. The pulmonary artery was not well visualized. There is mild dilatation of the ascending aorta measuring 3.80 cm. Venous The inferior vena cava was not well visualized. Pericardium/Pleural The pericardium was not well visualized. Prior Study Comparison No prior study available for comparison. Measurements 2D Linear Measurements IVSd: 1.32 0.6-0.9/0.6-1.0 cm LVIDd: 5.75 3.9-5.3/4.2-5.9 cm LVIDd Index: 2.41 2.4-3.2/2.2-3.1 cm/m2 LVIDs: 3.80 2.0-3.6 cm LVPWd: 1.09 0.7-1.1 cm LA Diam: 5.00 2.7-3.8/3.0-4.0 cm LAIDs Index: 2.09 1.5-2.3 cm/m2 LV Mass: 367.36 67-162/88-224 g LV Mass Index: 153.71 43-95/49-115 g/m2 LVOT Diam: 1.90 3.0+(-)1.3 cm Mitral Valve MV VTI: 0.52 MV Pk Rowdy: 1.32 MV Mn Rowdy: 0.69 MV Pk Grad: 7.00 MV Mn Grad: 2.00 MV Pk E: 1.05 MV PK A: 1.08 MV Decel Time: 254.00 E/A: 1.00 E'Lateral: 7.94 E'Medial: 5.77 E/E' Med: 18.20 E/E' Lat: 13.20 PHT: 74.00 MVA PHT: 2.97 MVA Continuity: 1.43 Decel [place]: 4.14 Aortic Valve AoV Pk Rowdy: 1.70 AoV Mn Rowdy: 1.14 AoV VTI: 0.45 AoV Pk Grad: 12.00 Aov Mn Grad: 6.00 ALCIRA Cont.VTI: 1.66 LVOT LVOT Pk Rowdy: 1.09 LVOT Mn Rowdy: 0.73 LVOT VTI: 0.26 LVOT Pk Grad: 5.00 LVOT Mn Grad: 3.00 LVOT Diam: 1.90 LVOT Area: 2.84 Diastolic Function MV Pk E: 1.05 MV Pk A: 1.08 E/A: 1.00 E'Medial: 5.77 E/E' Med: 18.20 E' Laterial: 7.94 E/E' Lat: 13.20 Right Ventricle TAPSE (mm): 18.60 TVS' Rowdy: 9.03 Tricuspid Valve TR Pk Rowdy: 3.60 TR Pk Grad: 52.00 Great Vessels Aorta Sinus of Valsalva: 3.50 2.0-3.5 cm Ao Asc: 3.80 2.1-3.4 cm Updated in Other Vendor System with Status of Final Abhishek Olvera MD electronically signed on 06/02/2024 12:40:37 PM with status of Final
[2024-06-02 07:19] LABS: Glucose, Whole Blood 227 mg/dL (60-115)
[2024-06-02] MEDS: 0.9 % Sodium Chloride Flush 3 ML SYRINGE IVFLUSH ×2 (07:33→15:20)
[2024-06-02] MEDS: Insulin Lispro 100 UNIT/ML 3 ML VIAL SUBCUT ×7 (07:34→21:24)
[2024-06-02] MEDS: Pramipexole Di-HCL 0.25 MG TABLET PO ×2 (08:06→21:25)
[2024-06-02] MEDS: Enoxaparin Sodium 40 MG/0.4 ML SYRINGE SUBCUT (08:06)
[2024-06-02] MEDS: Tamsulosin HCL 0.4 MG CAPSULE PO (08:06)
[2024-06-02] MEDS: Acetaminophen 325 MG TABLET 975 MG PO ×2 (08:07→20:11)
[2024-06-02] MEDS: Ammonium Lactate 12 % Lotion 226 GM BOTTLE 1 APPL TOPICAL (09:48)
--- NOTE | 2024-06-02 09:56 | P.PNIM_ITS ---
Subjective Subjective Date of Service: 06/02/24 Interval History: Seen and examined this morning Follow-up for MARTINE, Campylobacter, E coli diarrhea Denies shortness of breath Review of Systems Review of Systems: Yes all other systems are reviewed and are negative Constitutional Constitutional: Denies chills and Denies fever(s) Physical Exam 2 Vital Signs: Vital Signs: Last Vital Signs Temp 97.8 F 06/02/24 08:00 Pulse 57 06/02/24 08:00 Resp 22 H 06/02/24 08:00 BP 152/80 H 06/02/24 08:00 Pulse Ox 94 06/02/24 08:00 O2 Del Method Room Air 06/02/24 08:00 O2 Flow Rate 1 06/01/24 19:23 Oxygen Flow Rate 2 05/27/24 22:26 BMI result Body Mass Index 43.9 Appearing in no acute distress lung sounds are clear to auscultation heart regular rate rhythm, clear S1, S2 positive bowel sounds, abdomen is soft, nontender neuro patient is alert x3, no focal deficits Objective Data Active Medications Acetaminophen (Acetaminophen 325 Mg Tablet) 975 mg PO Q6H PRN PRN Reason: Pain, Mild (Pain Scale 1-3), fever or headache Last Admin: 06/02/24 08:07 Dose: 975 mg Documented By: FERDINAND Albuterol Sulfate (Albuterol Sulfate 90 Mcg 8 Gm Inhaler) 2 puff INHALE Q6H PRN PRN Reason: SOB/Wheezing Calcium Carbonate (Calcium Carbonate 750 Mg Tab.Chew) 750 mg PO Q4H PRN PRN Reason: Heartburn Divalproex Sodium (Divalproex Sodium Er 250 Mg Tab.Er.24h) 250 mg PO BEDTIME [facility] Last Admin: 06/01/24 21:20 Dose: 250 mg Documented By: EUGENIA Enoxaparin Sodium (Enoxaparin Sodium 40 Mg/0.4 Ml Syringe) 40 mg SUBCUT Q24H [facility] Last Admin: 06/02/24 08:06 Dose: 40 mg Documented By: FERDINAND Glucose (Glucose Gel 15 Gm Gel..Gram.) 15 gm PO Q15M PRN; Protocol PRN Reason: per Hypoglycemia Standing Ord. Dextrose (D10) 250 mls @ 750 mls/hr IV Q15M PRN; Protocol PRN Reason: per Hypoglycemia Standing Ord. Levofloxacin (Levaquin) 500 mg in 100 mls @ 100 mls/hr IV Q24H [facility] Last Infusion: 06/01/24 13:13 Dose: Infused Documented By: SALAS Metronidazole (Flagyl) 500 mg in 100 mls @ 100 mls/hr IV Q8H [facility] Last Infusion: 06/02/24 05:03 Dose: Infused Documented By: EUGENIA Insulin Human Lispro (Insulin Lispro 100 Unit/Ml 3 Ml Vial) 0 unit SUBCUT QIDACHS [facility]; Protocol Last Admin: 06/02/24 07:34 Dose: 4 unit Documented By: FERDINAND Lactic Acid (Ammonium Lactate 12 % Lotion 226 Gm Bottle) 1 appl TOPICAL DAILY [facility]; Protocol Last Admin: 06/02/24 09:48 Dose: 1 appl Documented By: FERDINAND Melatonin (Melatonin 3 Mg Tablet) 6 mg PO BEDTIME PRN PRN Reason: Insomnia Last Admin: 05/28/24 20:57 Dose: 6 mg Documented By: PAULINE Metoprolol Succinate (Metoprolol Succinate Er 25 Mg Tab.Er.24h) 25 mg PO DAILY [facility]; Protocol Ondansetron HCl (Ondansetron Hcl 4 Mg/2 Ml Vial) 4 mg IVPUSH Q6H PRN PRN Reason: Nausea and Vomiting Last Admin: 06/01/24 20:48 Dose: 4 mg Documented By: EUGENIA Pramipexole Dihydrochloride (Pramipexole Di-Hcl 0.25 Mg Tablet) 0.25 mg PO BID [facility] Last Admin: 06/02/24 08:06 Dose: 0.25 mg Documented By: FERDINAND Quetiapine Fumarate (Quetiapine Fumarate 25 Mg Tablet) 12.5 mg PO BEDTIME [facility] Last Admin: 06/01/24 21:20 Dose: 12.5 mg Documented By: EUGENIA Sodium Chloride (0.9 % Sodium Chloride Flush 3 Ml Syringe) 3 ml IVFLUSH QSHIFT [facility] Last Admin: 06/02/24 07:33 Dose: 3 ml Documented By: FERDINAND Tamsulosin HCl (Tamsulosin Hcl 0.4 Mg Capsule) 0.4 mg PO DAILY [facility] Last Admin: 06/02/24 08:06 Dose: 0.4 mg Documented By: FERDINAND Labs 05/28/24 04:17 06/01/24 06:14 Labs: Laboratory Results - last 24 hr 06/01/24 06/01/24 06/01/24 11:11 13:48 15:46 POC Glucose 281 H 314 H B-Natriuretic Peptide 397 H 06/01/24 06/02/24 19:29 07:15 POC Glucose 319 H 227 H B-Natriuretic Peptide Microbiology Microbiology Results: Microbiology 05/28/24 02:23 Blood Culture - Final Blood - Venous No growth after 5 days. 05/28/24 02:24 Blood Culture - Final Blood - Venous No growth after 5 days. Assessment and Plan (1) Campylobacter diarrhea: Status: Acute (2) E coli enteritis: Status: Acute (3) Acute renal failure: Status: Acute Plan Eleno Montoya is a 78 y/o man admitted with: Fluid overload echo pending cardiology consult>rec diuresis, lasix 40 IV BID monitor intake and output closely daily weights Bradycardia with mobitz I hr as low as in the 's no symptoms not on BB or CCB cardiology consult>will discuss with family, rec monitoring for now and check echo Acute hypoxic respiratory failure. Improving Repeat chest x-ray similar to previous on admission with some vascular congestion Patient does report he has been having shortness of breath for several years, has had extensive workup echocardiogram pending PT consult will need home 02 eval MARTINE creat trending down secondary to poor p.o. intake, vomiting and diarrhea IVF stopped valsartan stopped as per nephrology Enteritis GI panel + for E coli and Campylobacter IV levofloxacin and Flagyl (initiated 05/29/24) diarrhea resolved blood cultures negative Essential hypertension with hypotension. Resolved . due to volume depletion from diarrhea s/p IVF/albumin baseline bp meds held initially stop metoprolol due to bradycardia valsartan stopped due to MARTINE resume amlodipine Urinary retention Person placed Flomax resumed failed voiding trial x1 Type 2 diabetes mellitus with hypoglycemia . Resolved likely secondary to poor p.o. intake in the setting of insulin use continue ss, add mealtime insulin Lactic acidosis, no severe sepsis criteria. Likely secondary to delayed clearance due to renal dysfunction resolved with IVF EKG changes EKG with twave inversions on admission no chest pain, no previous for comparison d/w cardiology no further work up required - outpatient follow up Hyperlipidemia. hold ezetimibe, fenofibrate and rosuvastatin. BPH. resume Tamsulosin Mood disorder. Continue Depakote, pramipexole and Seroquel. RUPERTO. Nocturnal CPAP. DVT prophylaxis: Loveritax Attending Dr. Marroquin Code status: Full Ongoing inpatient stay for acute renal failure management with IV fluids and close monitoring of renal function.. Quality Stroke Does the patient have a stroke diagnosis?: No VTE Prior VTE?: No VTE Risk Level:: Medical - moderate - high VTE Device Contraindication: Treatment Not Indicated VTE Drug Contraindication: N/A - Med Ordered
[2024-06-02] MEDS: Furosemide 40 MG/4 ML VIAL IVPUSH ×2 (10:50→16:58)
[2024-06-02 11:13] LABS: Glucose, Whole Blood 316 mg/dL (60-115)
--- NOTE | 2024-06-02 11:16 | P.CONCA_ITS ---
History of Present Illness History of Present Illness Date of Service: 06/02/24 Requesting physician: Bev Yousif Consult reason: congestive heart failure and other (Bradycardia) Chief complaint: Acute Kidney Injury Narrative: I was consulted to see Eleno in cardiology consultation today for overnight noted bradycardia, reviewing the overnight telemetry appears to be Mobitz type 1 second-degree AV block with sinus bradycardia. Patient was sleeping during this time and was using CPAP and was asymptomatic. There was no hemodynamic compromise at that time. Patient when woken up this morning back to sinus rhythm. Patient has no prior history of any cardiac arrhythmias as per him but he has a poor historian. His metoprolol has been on hold since last few days and has not received any dose of metoprolol. Patient with prior history of morbid obesity, obstructive sleep apnea on CPAP, CAD status post three-vessel coronary artery bypass grafting remotely with cardiac catheterization in 2017 for what appears to be shortness of breath and abnormal stress test showing inferior ischemia in anterior infarction. Subsequent cardiac catheterization at shown left main, [place] 100% occluded, severe calcified stenosis in the proximal mid RCA with patent BRAVO to LAD and saphenous graft to OM with occluded saphenous venous graft to RCA. At that time he underwent a complicated PCI to the RCA undergoing 3 drug-eluting stent placement. He used to follow with cardiology at [place] but recently since the time it is not been seeing any marketing clerk. He has been re-referred to the marketing clerk but has not had a chance to make an appointment. He has a gradual lead increasing shortness of breath more recently. He has also prior history of insulin-requiring diabetes, hypertension, BPH came to the hospital with progressive symptoms of nausea vomiting diarrhea. He denied any chest pain. Has had progressively increasing shortness of breath and says he takes furosemide for urinary and fluid retention. Initially in the ED was noted to have low blood pressure with elevated creatinine with elevated lactic acid. He was admitted and started on IV fluids. Since hospitalization has received a lot of IV fluid but also seems to have been diuresing and since yesterday has negative balance of 2300 cc. Her clinically he appears to be fluid overloaded with abdominal distension as well as leg edema and appears to be quite short of breath. He has not had any recent cardiac workup as per him although history is unreliable. His creatinine is gradually improved. He denies any chest pain, lightheadedness, syncope, palpitations. As mentioned overnight noted to have sinus bradycardia with Mobitz type 1 second-degree AV block. Review of Systems 2 Constitutional: Constitutional: Reports no additional constitutional complaints Eyes: Eyes: Reports no additional eye complaints Cardiovascular: Cardiovascular: Reports Abdominal Distension, Denies chest pain, Reports leg edema, Denies lightheadedness, Denies Loss of Consciousness, Denies palpitations, Reports dyspnea and Reports dyspnea on exertion Respiratory: Respiratory: Reports no additional respiratory complaints, Reports dyspnea and Reports dyspnea on exertion Gastrointestinal: Gastrointestinal: Reports no additional gastrointestinal complaints Genitourinary: Genitourinary: Reports no additional male genitourinary complaints Musculoskeletal: Musculoskeletal: Reports no additional musculoskeletal complaints Integumentary/Breasts: Skin/Breast: Reports system reviewed and no additional complaints, except as docu Neurologic: Reports system reviewed and no additional complaints, except as documented Psychiatric: Psychiatric: Reports no additional psychiatric complaints Endocrine: Endocrine: Reports no additional endocrine complaints and Denies palpitations PMFSH Past Medical History Medical History Mood disorder Obstructive sleep apnea on CPAP Hyperlipidemia Obesity Essential hypertension BPH (benign prostatic hyperplasia) Social History Social History Household Members: Spouse Housing: House Do you presently have visiting nurse or other home services: No Alcohol intake: never Patient Tobacco Use Status: Former Tobacco user service: Yes Meds Allergies Allergy/AdvReac Type Severity Reaction Status Date / Time No Known Allergies Allergy Verified 05/27/24 22:31 [No Known Allergies*] Active Medications: Current Medications Acetaminophen (Acetaminophen 325 Mg Tablet) 975 mg PO Q6H PRN PRN Reason: Pain, Mild (Pain Scale 1-3), fever or headache Last Admin: 06/02/24 08:07 Dose: 975 mg Albuterol Sulfate (Albuterol Sulfate 90 Mcg 8 Gm Inhaler) 2 puff INHALE Q6H PRN PRN Reason: SOB/Wheezing Amlodipine Besylate (Amlodipine Besylate 10 Mg Tablet) 10 mg PO DAILY [facility]; Protocol Calcium Carbonate (Calcium Carbonate 750 Mg Tab.Chew) 750 mg PO Q4H PRN PRN Reason: Heartburn Divalproex Sodium (Divalproex Sodium Er 250 Mg Tab.Er.24h) 250 mg PO BEDTIME [facility] Last Admin: 06/01/24 21:20 Dose: 250 mg Enoxaparin Sodium (Enoxaparin Sodium 40 Mg/0.4 Ml Syringe) 40 mg SUBCUT Q24H [facility] Last Admin: 06/02/24 08:06 Dose: 40 mg Furosemide (Furosemide 40 Mg/4 Ml Vial) 40 mg IVPUSH BID@0900,1800 [facility]; Protocol Last Admin: 06/02/24 10:50 Dose: 40 mg Glucose (Glucose Gel 15 Gm Gel..Gram.) 15 gm PO Q15M PRN; Protocol PRN Reason: per Hypoglycemia Standing Ord. Dextrose (D10) 250 mls @ 750 mls/hr IV Q15M PRN; Protocol PRN Reason: per Hypoglycemia Standing Ord. Levofloxacin (Levaquin) 500 mg in 100 mls @ 100 mls/hr IV Q24H [facility] Last Infusion: 06/01/24 13:13 Dose: Infused Metronidazole (Flagyl) 500 mg in 100 mls @ 100 mls/hr IV Q8H [facility] Last Infusion: 06/02/24 05:03 Dose: Infused Insulin Human Lispro (Insulin Lispro 100 Unit/Ml 3 Ml Vial) 0 unit SUBCUT QIDACHS [facility]; Protocol Last Admin: 06/02/24 07:34 Dose: 4 unit Insulin Human Lispro (Insulin Lispro 100 Unit/Ml 3 Ml Vial) 2.5 unit SUBCUT QIDACHS [facility] Lactic Acid (Ammonium Lactate 12 % Lotion 226 Gm Bottle) 1 appl TOPICAL DAILY [facility]; Protocol Last Admin: 06/02/24 09:48 Dose: 1 appl Melatonin (Melatonin 3 Mg Tablet) 6 mg PO BEDTIME PRN PRN Reason: Insomnia Last Admin: 05/28/24 20:57 Dose: 6 mg Metoprolol Succinate (Metoprolol Succinate Er 25 Mg Tab.Er.24h) 25 mg PO DAILY [facility]; Protocol Ondansetron HCl (Ondansetron Hcl 4 Mg/2 Ml Vial) 4 mg IVPUSH Q6H PRN PRN Reason: Nausea and Vomiting Last Admin: 06/01/24 20:48 Dose: 4 mg Pramipexole Dihydrochloride (Pramipexole Di-Hcl 0.25 Mg Tablet) 0.25 mg PO BID [facility] Last Admin: 06/02/24 08:06 Dose: 0.25 mg Quetiapine Fumarate (Quetiapine Fumarate 25 Mg Tablet) 12.5 mg PO BEDTIME [facility] Last Admin: 06/01/24 21:20 Dose: 12.5 mg Sodium Chloride (0.9 % Sodium Chloride Flush 3 Ml Syringe) 3 ml IVFLUSH QSHIFT [facility] Last Admin: 06/02/24 07:33 Dose: 3 ml Tamsulosin HCl (Tamsulosin Hcl 0.4 Mg Capsule) 0.4 mg PO DAILY [facility] Last Admin: 06/02/24 08:06 Dose: 0.4 mg Home Medications ?Medication ?Instructions ?Recorded ?Confirmed ?Last Taken ?Type albuterol sulfate 90 mcg/actuation 2 puff inhalation Q6H PRN 05/28/24 05/28/24 Unknown History aerosol inhaler SOB/Wheezing amlodipine 10 mg tablet 10 mg PO DAILY 05/28/24 05/28/24 05/27/24 07:00 History ammonium lactate 12 % lotion 1 appl topical DAILY 05/28/24 05/28/24 05/27/24 07:00 History ascorbic acid (vitamin C) 250 mg 250 mg PO DAILY 05/28/24 05/28/24 05/27/24 07:00 History tablet aspirin 81 mg tablet,delayed 81 mg PO DAILY 05/28/24 05/28/24 05/27/24 07:00 History release cholecalciferol (vitamin D3) 25 25 mcg PO DAILY 05/28/24 05/28/24 05/27/24 07:00 History mcg (1,000 unit) tablet (Vitamin D3) divalproex 250 mg tablet,extended 250 mg PO BEDTIME 05/28/24 05/28/24 05/26/24 History release 24 hr empagliflozin 25 mg tablet 25 mg PO DAILY 05/28/24 05/28/24 05/27/24 07:00 History ezetimibe 10 mg tablet 10 mg PO DAILY 05/28/24 05/28/24 05/27/24 07:00 History fenofibrate nanocrystallized 48 mg 96 mg PO DAILY 05/28/24 05/28/24 05/27/24 07:00 History tablet ferrous sulfate 325 mg (65 mg 325 mg PO DAILY 05/28/24 05/28/24 05/27/24 07:00 History iron) tablet furosemide 20 mg tablet 20 mg PO DAILY PRN Edema 05/28/24 05/28/24 05/27/24 07:00 History glucose 4 gram chewable tablet 16 g PO Q15M PRN Blood Glucose 05/28/24 05/28/24 Unknown History Reaction Below 70 insulin regular hum U-500 conc 500 170 unit subcut DAILY 05/28/24 05/28/24 05/27/24 07:00 History unit/mL(3 mL) subcut pen (Humulin R U-500 (Conc) Insulin Kwikpen) metoprolol succinate 25 mg 25 mg PO DAILY 05/28/24 05/28/24 05/27/24 07:00 History tablet,extended release 24 hr pramipexole 0.25 mg tablet 0.25 mg PO BID 05/28/24 05/28/24 05/27/24 07:00 History quetiapine 25 mg tablet 12.5 mg PO BEDTIME 05/28/24 05/28/24 05/26/24 History rosuvastatin 40 mg tablet 40 mg PO DAILY 05/28/24 05/28/24 05/27/24 07:00 History tamsulosin 0.4 mg capsule 0.4 mg PO DAILY 05/28/24 05/28/24 05/27/24 07:00 History valsartan 320 mg tablet 320 mg PO DAILY 05/28/24 05/28/24 05/27/24 07:00 History Physical Exam 2 Vital Signs: Vital Signs: Last Vital Signs Temp 97.8 F 06/02/24 08:00 Pulse 57 06/02/24 10:36 Resp 22 H 06/02/24 08:00 BP 139/69 06/02/24 10:50 Pulse Ox 94 06/02/24 10:36 O2 Del Method Room Air 06/02/24 08:00 O2 Flow Rate 1 06/01/24 19:23 Oxygen Flow Rate 2 05/27/24 22:26 BMI result Body Mass Index 43.9 Const: General: cooperative, comfortable, alert, awake and in distress mild and respiratory Nutritional Appearance: obese morbidly obese O rientation/consciousness: patient oriented x3 Limitations: no limitations HEENT: Head: Yes normocephalic and Yes atraumatic Neck: Neck: Yes trachea midline, Yes supple and Yes other (Difficult to evaluate JVD due to body habitus) Resp: Effort & Inspection: decreased respiratory effort Auscultation: no crackles, no wheezes and diminished lung sounds Cardio: Palpation: normal PMI Rate: regular rate Rhythm: regular rhythm Heart sounds: S1 normal heart sound present, S2 normal heart sound present, no click, no gallops, no murmurs and no rubs GI: Inspection: Yes distended Auscultation: normal bowel sounds Skin: General skin exam: no rashes or lesions noted Neuro: General: patient oriented x3 and no focal motor deficits Extrem: General: No clubbing, No cyanosis and Yes edema (3 to 4+) Objective Labs and Meds 05/28/24 04:17 06/01/24 06:14 Lab results: Laboratory Results - last 24 hr 06/01/24 06/01/24 06/01/24 11:11 13:48 15:46 POC Glucose 281 H 314 H B-Natriuretic Peptide 397 H 06/01/24 06/02/24 06/02/24 19:29 07:15 11:04 POC Glucose 319 H 227 H 316 H B-Natriuretic Peptide Assessment and Plan (1) Acute CHF: Status: Acute Patient appears to be in right-sided heart failure. Could be related to RV dysfunction related to significant sleep apnea and/or related to LV diastolic dysfunction. Agree with echocardiogram. Clinically appears to be significantly fluid overloaded and I agree with IV diuresis with 40 mg IV push of Lasix b.i.d.. Continue monitor strict intake and output chart continue monitor renal function as well as BNP. Difficult overall evaluate fluid status due to his body habitus. However he is at high risk for congestive heart failure. Continue CPAP therapy. Bed to chair. Further treatment based on the finding of the echocardiogram. Continue aggressive blood pressure control. (2) Mobitz type 1 second degree atrioventricular block: Status: Acute Asymptomatic Mobitz type 1 second-degree AV block noted overnight while he was sleeping although he was using CPAP therapy. It is possible due to progressive CHF and undertreated obstructive sleep apnea. Would hold off on all rate lowering medication at this point time. At this point time I do not think patient needs a pacemaker. However will continue to monitor and if he has more advanced AV block or persistent significant bradycardia may need a pacemaker placement. Will follow with him. Thank you for allowing me to partake in his care Procedures Date of Service Date of Service: 06/02/24
[2024-06-02 11:53] LABS: Glucose, Whole Blood 369 mg/dL (60-115)
[2024-06-02] MEDS: levoFLOXacin/D5W 500 MG/100 ML PIGGYBACK 100 MG IV (12:16)
--- NOTE | 2024-06-02 13:19 | P.PNNP_ITS ---
Subjective Subjective Date of Service: 06/02/24 Interval history: Seen and examined this morning. All recent data reviewed Physical Exam 2 Vital Signs: Vital Signs: Last Vital Signs Temp 97.5 F 06/02/24 12:00 Pulse 75 06/02/24 12:00 Resp 18 06/02/24 12:00 BP 134/60 06/02/24 12:00 Pulse Ox 92 06/02/24 12:00 O2 Del Method Room Air 06/02/24 12:00 O2 Flow Rate 1 06/01/24 19:23 Oxygen Flow Rate 2 05/27/24 22:26 BMI result Body Mass Index 43.9 Const: General: no acute distress Orientation/consciousness: patient oriented x3 Eyes: EOM: EOMs intact bilaterally Resp: Auscultation: diminished lung sounds Cardio: Rate: regular rate GI: Palpation (GI): Soft to palpation Neuro: General: patient oriented x3 and moves all extremities Objective Data Labs 05/28/24 04:17 06/01/24 06:14 Labs: Laboratory Results - last 24 hr 06/01/24 06/01/24 06/01/24 13:48 15:46 19:29 POC Glucose 314 H 319 H B-Natriuretic Peptide 397 H 06/02/24 06/02/24 06/02/24 07:15 11:04 11:45 POC Glucose 227 H 316 H 369 H* B-Natriuretic Peptide Microbiology Microbiology Results: Microbiology 05/28/24 02:23 Blood - Venous Blood Culture - Final No growth after 5 days. 05/28/24 02:24 Blood - Venous Blood Culture - Final No growth after 5 days. Procedures Date of Service Date of Service: 06/02/24 Assessment & Plan Assessment and plan (1) Acute renal failure: Status: Acute Plan MARTINE due to tubular injuey Renal function is improving. Hold and all antihypertensives and diuretics Expect complete renal recovery. Labs AM Progress Note: Quality Stroke Does the patient have a stroke diagnosis?: No
[2024-06-02 16:16] LABS: Glucose, Whole Blood 369 mg/dL (60-115)
--- NOTE | 2024-06-02 16:26 | P.CDIM_ITS ---
PROVIDER RESPONSE TEXT: To clarify, the appropriate diagnosis supported by the clinical indicators: Acute QUERY TEXT: PHYSICIAN'S DOCUMENTATION REQUEST Date of Query: 06/02/2024 07:59 AM EDT Patient Name: Eleno Montoya Admit Date: 05/28/2024 Dear Bev Yousif, A review of the medical record indicates additional documentation may be needed. Please review below and update the documentation accordingly. Clinical Indicators: H&P and Progress notes within the Plan: Lactic acidosis, no severe sepsis criteria. Likely secondary to delayed clearance due to renal dysfunction/ resolved with IVF. LA 2.8 H Clarify which of the following accurately represents the acuity of the lactic acidosis: Possible options might include: Acute Chronic Acute on chronic Other (explain) Clinically unable to determine (explain) Thank you, Shaylee Pedro, CCS, CDIS Use of terms such as suspected, likely, concern for, or probable (associated with a specific diagnosi s that is being evaluated, monitored, or treated as if it exists) are acceptable and can be coded in the inpatient se tting, when documented at the time of discharge. Please use your independent medical judgment in providing your response. THIS QUERY IS PART OF THE PERMANENT MEDICAL RECORD
--- NOTE | 2024-06-02 16:30 | P.CDIM_ITS ---
PROVIDER RESPONSE TEXT: To clarify, the appropriate diagnosis supported by the clinical indicators: Morbid obesity QUERY TEXT: PHYSICIAN'S DOCUMENTATION REQUEST Date of Query: 06/02/2024 08:01 AM EDT Patient Name: Eleno Montoya Admit Date: 05/28/2024 Dear Bev Yousif, A review of the medical record indicates additional documentation may be needed. Please review below and update the documentation accordingly. Clinical Indicators: Height: 5ft 8in Weight: 130.9kg BMI: 43.9 Other Clinical Notes Supporting Significance of the BMI: Nursing notes Height and Weight: Extreme obe sity with BMI 43.9. If possible, please provide an associated diagnosis related to the abnormal BMI, such as: Morbid obesity Obesity Obesity Due to other cause Specify the other cause Other (explain) Clinically unable to determine (explain) Thank you, Shaylee Pedro, CCS, CDIS Use of terms such as suspected, likely, concern for, or probable (associated with a specific diagnosi s that is being evaluated, monitored, or treated as if it exists) are acceptable and can be coded in the inpatient se tting, when documented at the time of discharge. Please use your independent medical judgment in providing your response. THIS QUERY IS PART OF THE PERMANENT MEDICAL RECORD
[2024-06-02 20:59] LABS: Glucose, Whole Blood 405 mg/dL (60-115)
[2024-06-02] MEDS: QUEtiapine Fumarate 25 MG TABLET 12.5 MG PO (21:24)
[2024-06-02] MEDS: Divalproex Sodium ER 250 MG TAB.ER.24H PO (21:25)
[2024-06-03] VITALS (10 sets, daily range): BP systolic 112–188; BP diastolic 2–96; PULSE 28–78; RESP 18–20; TEMP 36.1–36.9; O2SAT 92–96; BMI 43.6
--- NOTE | 2024-06-03 03:10 | PC.NURSE ---
Pt HR 20's-50's throughout the night, pt asymptomatic easily aroused and denies c/o pain. CPAP in place with frequent episodes of desat. Respiratory called to bedside to eval pt O2 via nasal cannula 2L placed by respiratory to pt's CPAP. O2 increased to 3L.
[2024-06-03] MEDS: metroNIDAZOLE/NS 500 MG/100 ML PIGGYBACK 100 MG IV (05:56)
[2024-06-03] MEDS: amLODIPine Besylate 10 MG TABLET PO (06:12)
[2024-06-03 07:39] LABS: Glucose, Whole Blood 259 mg/dL (60-115)
[2024-06-03] MEDS: Enoxaparin Sodium 40 MG/0.4 ML SYRINGE SUBCUT (08:22)
[2024-06-03] MEDS: Insulin Lispro 100 UNIT/ML 3 ML VIAL SUBCUT ×8 (08:22→21:46)
[2024-06-03] MEDS: Furosemide 40 MG/4 ML VIAL IVPUSH ×2 (08:23→16:48)
[2024-06-03] MEDS: Pramipexole Di-HCL 0.25 MG TABLET PO ×2 (08:23→21:47)
[2024-06-03] MEDS: Ammonium Lactate 12 % Lotion 226 GM BOTTLE 1 APPL TOPICAL (08:23)
[2024-06-03] MEDS: 0.9 % Sodium Chloride Flush 3 ML SYRINGE IVFLUSH ×4 (08:23→21:50)
[2024-06-03] MEDS: Tamsulosin HCL 0.4 MG CAPSULE PO (08:23)
[2024-06-03] MEDS: Acetaminophen 325 MG TABLET 975 MG PO ×2 (08:26→21:47)
[2024-06-03 09:44] LABS: Hematocrit 39.9 % (42.0-52.0); Hemoglobin 13.8 g/dl (14.0-18.0); Mean Corpuscular HGB Conc 34.6 g/dl (31.0-36.0); Mean Corpuscular Hemoglobin 30.5 pg (27.0-33.0); Mean Corpuscular Volume 88.3 fL (80.0-98.0); Mean Platelet Volume 9.2 fL (9.4-12.4); Platelet Count 256 X10*3/uL (160-400); Red Blood Count 4.52 X10*6/uL (4.60-5.80); White Blood Count 8.5 X10*3/uL (4.8-10.8)
[2024-06-03 10:03] LABS: Anion Gap 15 (12-20); Blood Urea Nitrogen 26 mg/dL (9-16); Calcium 10.1 mg/dL (8.4-10.2); Carbon Dioxide 27 mmol/L (22-29); Chloride 99 mmol/L (96-108); Estimated Glomerular Filt Rate 50; Glucose Random 290 mg/dL (60-115); Potassium 3.6 mmol/L (3.3-5.1); Sodium 137 mmol/L (135-145)
--- NOTE | 2024-06-03 11:07 | PM.PNCARD ---
Subjective Subjective Date of Service: 06/03/24 Principal diagnosis: Right heart failure, acute kidney injury, bradycardia Interval history: Overnight patient continues to have Mobitz type 1 second-degree AV block. No symptoms related to it. But also had SVT with ST T wave changes. Patient denies any chest pain. He has diuresed about 5 L overnight. Tolerating that well. Creatinine is improved. His breathing is improved and leg edema is improved as per him. Review of Systems Constitutional: Reports no additional constitutional complaints Cardiovascular: Denies chest pain, Denies rapid heart rate, Reports leg edema, Denies lightheadedness, Denies Loss of Consciousness, Denies palpitations and Reports dyspnea on exertion Respiratory: Reports dyspnea on exertion Gastrointestinal: Reports no additional gastrointestinal complaints Genitourinary: Reports no additional male genitourinary complaints Skin/Breast: Reports system reviewed and no additional complaints, except as docu Psychiatric: Reports no additional psychiatric complaints Endocrine: Denies palpitations Physical Exam Vital Signs: Last Vital Signs Temp 97.8 F 06/03/24 08:00 Pulse 57 06/03/24 08:00 Resp 20 06/03/24 08:00 BP 188/96 H 06/03/24 08:23 Pulse Ox 93 06/03/24 08:00 O2 Del Method Room Air 06/03/24 08:00 O2 Flow Rate 2 06/03/24 05:27 Oxygen Flow Rate 2 05/27/24 22:26 BMI result Body Mass Index 43.6 Const General: cooperative, comfortable, alert, awake and in distress mild and respiratory Nutritional Appearance: obese morbidly obese Orientation/consciousness: patient oriented x3 Limitations: no limitations HEENT Head: Yes normocephalic and Yes atraumatic Neck Neck: Yes trachea midline, Yes supple and Yes other (Difficult to evaluate JVD due to body habitus) Resp Effort & Inspection: decreased respiratory effort Auscultation: no crackles, no wheezes and diminished lung sounds Cardio Palpation: normal PMI Rate: regular rate Rhythm: regular rhythm Heart sounds: S1 normal heart sound present, S2 normal heart sound present, no click, no gallops, no murmurs and no rubs GI Inspection: Yes distended Auscultation: normal bowel sounds Skin General skin exam: no rashes or lesions noted Neuro General: patient oriented x3 and no focal motor deficits Extrem General: No clubbing, No cyanosis and Yes edema (3 to 4+) Objective Labs and Meds 06/03/24 09:37 06/03/24 09:37 Lab results: Laboratory Results - last 24 hr 06/02/24 06/02/24 06/02/24 11:04 11:45 16:09 WBC RBC Hgb Hct MCV MCH MCHC RDW Plt Count MPV Absolute Nucleated RBC Nucleated RBC % (auto) Sodium Potassium Chloride Carbon Dioxide Anion Gap BUN Creatinine Estim Creat Clear Calc Estimated GFR POC Glucose 316 H 369 H* 369 H* Random Glucose Calcium 06/02/24 06/03/24 06/03/24 20:44 07:18 09:37 WBC 8.5 RBC 4.52 L Hgb 13.8 L Hct 39.9 L MCV 88.3 MCH 30.5 MCHC 34.6 RDW 14.0 Plt Count 256 D MPV 9.2 L Absolute Nucleated RBC 0.000 Nucleated RBC % (auto) 0.0 Sodium 137 Potassium 3.6 Chloride 99 Carbon Dioxide 27 Anion Gap 15 BUN 26 H Creatinine 1.38 Estim Creat Clear Calc 58.0 Estimated GFR 50 POC Glucose 405 H* 259 H Random Glucose 290 H Calcium 10.1 D Progress Note: A&P Assessment and plan (1) Acute CHF: Status: Acute Assessment and Plan: Acute congestive heart failure predominantly right-sided heart failure with improved fluid status with IV diuresis with improved renal function. Continue IV diuresis. Strict intake and output chart needs to be pursued. Consider adding spironolactone 25 mg to regimen given his high blood pressure. Possibly undertreated sleep apnea could be the cause for his RV dysfunction and heart failure. Will need to be evaluated as outpatient. Continue aggressive blood pressure control. Aggressive weight reduction needs to be planned. Add Jardiance 10 mg to his regimen for heart failure management. Heart failure management discussed in details. (2) Mobitz type 1 second degree atrioventricular block: Status: Acute Assessment and Plan: Patient continues to have Mobitz type 1 second-degree AV block and now having SVT. If he continues to have recurrent episodes ICD of metoprolol therapy and requires metoprolol therapy may require pacemaker placement for safe use of metoprolol therapy. Will continue monitor by full disclosure cardiac telemetry. Will follow with you Time Spent With Patient Time: Total time managing care of this patient today ____ minutes. Progress Note: Quality Stroke Does the patient have a stroke diagnosis?: No Procedures Date of Service Date of Service: 06/03/24
[2024-06-03 11:14] LABS: Glucose, Whole Blood 333 mg/dL (60-115)
[2024-06-03] MEDS: levoFLOXacin 500 MG TABLET PO (11:24)
--- NOTE | 2024-06-03 13:22 | P.PNNP_ITS ---
Subjective Subjective Date of Service: 06/03/24 Principal diagnosis: Right heart failure, acute kidney injury, bradycardia Interval history: Seen and examined this morning. All recent data reviewed Physical Exam 2 Vital Signs: Vital Signs: Last Vital Signs Temp 98.4 F 06/03/24 11:54 Pulse 62 06/03/24 11:54 Resp 20 06/03/24 11:54 BP 112/66 06/03/24 11:54 Pulse Ox 96 06/03/24 11:54 O2 Del Method Nasal Cannula 06/03/24 11:54 O2 Flow Rate 3 06/03/24 11:54 Oxygen Flow Rate 2 05/27/24 22:26 BMI result Body Mass Index 43.6 Const: General: no acute distress Eyes: EOM: EOMs intact bilaterally Neck: Neck: Yes supple Resp: Auscultation: diminished lung sounds Cardio: Rate: regular rate GI: Palpation (GI): Soft to palpation Neuro: General: moves all extremities Objective Data Labs 06/03/24 09:37 06/03/24 09:37 Labs: Laboratory Results - last 24 hr 06/02/24 06/02/24 06/03/24 16:09 20:44 07:18 WBC RBC Hgb Hct MCV MCH MCHC RDW Plt Count MPV Absolute Nucleated RBC Nucleated RBC % (auto) Sodium Potassium Chloride Carbon Dioxide Anion Gap BUN Creatinine Estim Creat Clear Calc Estimated GFR POC Glucose 369 H* 405 H* 259 H Random Glucose Calcium 06/03/24 06/03/24 09:37 10:57 WBC 8.5 RBC 4.52 L Hgb 13.8 L Hct 39.9 L MCV 88.3 MCH 30.5 MCHC 34.6 RDW 14.0 Plt Count 256 D MPV 9.2 L Absolute Nucleated RBC 0.000 Nucleated RBC % (auto) 0.0 Sodium 137 Potassium 3.6 Chloride 99 Carbon Dioxide 27 Anion Gap 15 BUN 26 H Creatinine 1.38 Estim Creat Clear Calc 58.0 Estimated GFR 50 POC Glucose 333 H Random Glucose 290 H Calcium 10.1 D Microbiology Microbiology Results: Microbiology 05/28/24 02:23 Blood - Venous Blood Culture - Final No growth after 5 days. 05/28/24 02:24 Blood - Venous Blood Culture - Final No growth after 5 days. Procedures Date of Service Date of Service: 06/03/24 Assessment & Plan Assessment and plan (1) Acute renal failure: Status: Acute Plan MARTINE due to tubular injury Renal function is improving with supportive care Expect complete renal recovery. Labs AM Progress Note: Quality Stroke Does the patient have a stroke diagnosis?: No
--- NOTE | 2024-06-03 14:12 | P.PNIM_ITS ---
Subjective Subjective Date of Service: 06/03/24 Interval History: Being followed acute kidney injury, Campylobacter, E coli diarrhea and now bradycardia with Mobitz type 1, this morning noted to have sinus tachycardia. Patient denies further episodes of diarrhea denies lightheadedness, no dizziness, no chest pain, no shortness of breath, no fevers, no chills tolerating diet, tele monitor showing persistent Mobitz type 1 with heart rate in mid 40s. Review of Systems All other system are reviewed and are negative. Physical Exam 2 Vital Signs: Vital Signs: Last Vital Signs Temp 98.4 F 06/03/24 11:54 Pulse 62 06/03/24 11:54 Resp 20 06/03/24 11:54 BP 112/66 06/03/24 11:54 Pulse Ox 96 06/03/24 11:54 O2 Del Method Nasal Cannula 06/03/24 11:54 O2 Flow Rate 3 06/03/24 11:54 Oxygen Flow Rate 2 05/27/24 22:26 BMI result Body Mass Index 43.6 Const: Other: General awake alert x3, in no acute distress. Anicteric sclera Neck no JVD. CVS regular rate rhythm, Respiratory lungs clear to auscultation, no respiratory distress, no wheeze, no rhonchi, no crackles. Gastrointestinal abdomen soft, obese, non tender, bowel sounds audible. Extremities bilateral pitting edema. Neuro non focal . Skin no rash Psych appropriate affect Objective Data Active Medications Acetaminophen (Acetaminophen 325 Mg Tablet) 975 mg PO Q6H PRN PRN Reason: Pain, Mild (Pain Scale 1-3), fever or headache Last Admin: 06/03/24 08:26 Dose: 975 mg Documented By: WHIT Albuterol Sulfate (Albuterol Sulfate 90 Mcg 8 Gm Inhaler) 2 puff INHALE Q6H PRN PRN Reason: SOB/Wheezing Amlodipine Besylate (Amlodipine Besylate 10 Mg Tablet) 10 mg PO DAILY [facility]; Protocol Last Admin: 06/03/24 06:12 Dose: 10 mg Documented By: AGUSTÍN Comments: Give dose early per Dr. Peng Calcium Carbonate (Calcium Carbonate 750 Mg Tab.Chew) 750 mg PO Q4H PRN PRN Reason: Heartburn Divalproex Sodium (Divalproex Sodium Er 250 Mg Tab.Er.24h) 250 mg PO BEDTIME [facility] Last Admin: 06/02/24 21:25 Dose: 250 mg Documented By: EUGENIA Enoxaparin Sodium (Enoxaparin Sodium 40 Mg/0.4 Ml Syringe) 40 mg SUBCUT Q24H [facility] Last Admin: 06/03/24 08:22 Dose: 40 mg Documented By: WHIT Furosemide (Furosemide 40 Mg/4 Ml Vial) 40 mg IVPUSH BID@0900,1800 [facility]; Protocol Last Admin: 06/03/24 08:23 Dose: 40 mg Documented By: WHIT Glucose (Glucose Gel 15 Gm Gel..Gram.) 15 gm PO Q15M PRN; Protocol PRN Reason: per Hypoglycemia Standing Ord. Dextrose (D10) 250 mls @ 750 mls/hr IV Q15M PRN; Protocol PRN Reason: per Hypoglycemia Standing Ord. Insulin Human Lispro (Insulin Lispro 100 Unit/Ml 3 Ml Vial) 0 unit SUBCUT QIDACHS [facility]; Protocol Last Admin: 06/03/24 11:23 Dose: 8 unit Documented By: WHIT Insulin Human Lispro (Insulin Lispro 100 Unit/Ml 3 Ml Vial) 2.5 unit SUBCUT QIDACHS [facility] Last Admin: 06/03/24 11:23 Dose: 2.5 unit Documented By: WHIT Lactic Acid (Ammonium Lactate 12 % Lotion 226 Gm Bottle) 1 appl TOPICAL DAILY [facility]; Protocol Last Admin: 06/03/24 08:23 Dose: 1 appl Documented By: WHIT Levofloxacin (Levofloxacin 500 Mg Tablet) 500 mg PO Q24H [facility] Last Admin: 06/03/24 11:24 Dose: 500 mg Documented By: WHIT Melatonin (Melatonin 3 Mg Tablet) 6 mg PO BEDTIME PRN PRN Reason: Insomnia Last Admin: 05/28/24 20:57 Dose: 6 mg Documented By: PAULINE Metronidazole (Metronidazole 500 Mg Tablet) 500 mg PO Q8H [facility] Ondansetron HCl (Ondansetron Hcl 4 Mg/2 Ml Vial) 4 mg IVPUSH Q6H PRN PRN Reason: Nausea and Vomiting Last Admin: 06/01/24 20:48 Dose: 4 mg Documented By: EUGENIA Pramipexole Dihydrochloride (Pramipexole Di-Hcl 0.25 Mg Tablet) 0.25 mg PO BID [facility] Last Admin: 06/03/24 08:23 Dose: 0.25 mg Documented By: WHIT Quetiapine Fumarate (Quetiapine Fumarate 25 Mg Tablet) 12.5 mg PO BEDTIME [facility] Last Admin: 06/02/24 21:24 Dose: 12.5 mg Documented By: EUGENIA Sodium Chloride (0.9 % Sodium Chloride Flush 3 Ml Syringe) 3 ml IVFLUSH QSHIFT [facility] Last Admin: 06/03/24 08:23 Dose: 3 ml Documented By: WHIT Tamsulosin HCl (Tamsulosin Hcl 0.4 Mg Capsule) 0.4 mg PO DAILY [facility] Last Admin: 06/03/24 08:23 Dose: 0.4 mg Documented By: WHIT Labs 06/03/24 09:37 06/03/24 09:37 Labs: Laboratory Results - last 24 hr 06/02/24 06/02/24 06/03/24 16:09 20:44 07:18 MCV MCH MCHC RDW Plt Count MPV Absolute Nucleated RBC Nucleated RBC % (auto) Anion Gap Estim Creat Clear Calc Estimated GFR POC Glucose 369 H* 405 H* 259 H Random Glucose Calcium 06/03/24 06/03/24 09:37 10:57 MCV 88.3 MCH 30.5 MCHC 34.6 RDW 14.0 Plt Count 256 D MPV 9.2 L Absolute Nucleated RBC 0.000 Nucleated RBC % (auto) 0.0 Anion Gap 15 Estim Creat Clear Calc 58.0 Estimated GFR 50 POC Glucose 333 H Random Glucose 290 H Calcium 10.1 D Assessment and Plan (1) Campylobacter diarrhea: Status: Acute (2) E coli enteritis: Status: Acute (3) Acute renal failure: Status: Acute Plan Eleno Montoya is a 78 y/o man admitted with: Acute right-sided heart failure Feeling better, diuresed greater than 5 L echo showed EF 65% Continue lasix 40 IV BID , strict intake and output, daily weights Case discussed with Cardiology will resume Jardiance 25mg daily, follow BMP Hold Aldactone since blood pressure dropped to 112/66 Bradycardia with mobitz I Heart rate improved now in 40 s hr was was low in 20s This morning had an episode of SVT, was asymptomatic case discussed with Cardiology if continue to have recurrent episodes of SVT will require pacemaker placement to safely use metoprolol Acute hypoxic respiratory failure. Improving Likely due to above , wean oxygen as tolerated If remained hypoxic will obtain home O2 eval MARTINE due to tubular injury due to poor by mouth intake, vomiting and diarrhea, valsartan discontinued, treated with IV fluids creat trending down , now noted to have volume overload being diuresed , monitor renal function closely Enteritis GI panel + for E coli and Campylobacter On IV levofloxacin and Flagyl (initiated 05/29/24), will transition to by mouth for total 7 days No recurrent diarrhea blood cultures negative Essential hypertension with hypotension. Resolved . due to volume depletion from diarrhea s/p IVF/albumin baseline bp meds held initially stop metoprolol due to bradycardia valsartan stopped due to MARTINE cont. amlodipine follow BP closely Urinary retention Person placed Flomax resumed failed voiding trial x1 Type 2 diabetes mellitus with hypoglycemia likely due to poor by mouth intake due to diarrhea Hypoglycemia resolved now noted to have hyperglycemia Will add Lantus 10 units bedtime and increase dose of pre meal insulin Lactic acidosis, no severe sepsis criteria. Likely secondary to delayed clearance due to renal dysfunction resolved with IVF EKG changes EKG with twave inversions on admission no chest pain, no previous for comparison d/w cardiology no further work up required - outpatient follow up Hyperlipidemia. hold ezetimibe, fenofibrate and rosuvastatin. BPH. on Tamsulosin Mood disorder. Continue Depakote, pramipexole and Seroquel. RUPERTO. Nocturnal CPAP. DVT prophylaxis: Lovenox Code status: Full Ongoing inpatient stay for acute CHF management with IV diuretics and close tele monitoring of bradycardia with Mobitz type 1/SVT . Quality Stroke Does the patient have a stroke diagnosis?: No VTE Prior VTE?: No VTE Risk Level:: Medical - moderate - high VTE Device Contraindication: Treatment Not Indicated VTE Drug Contraindication: N/A - Med Ordered
--- NOTE | 2024-06-03 14:25 | MHC.CM.PN ---
Pt is not yet ready for DC. PT rec STR, CM discussed this with pt. and his . Pt was somewhat anxious about this, CM explained process, and that referrals would be submitted to [facility] contracted STR's. Pt in agreement, requests that he go to [facility] because it is close for his to visit (she does not drive). Referrals submitted.
[2024-06-03] MEDS: Empagliflozin 25 MG TABLET PO (15:22)
[2024-06-03] MEDS: metroNIDAZOLE 500 MG TABLET PO ×2 (15:22→21:47)
[2024-06-03 16:05] LABS: Glucose, Whole Blood 416 mg/dL (60-115)
[2024-06-03 21:04] LABS: Glucose, Whole Blood 409 mg/dL (60-115)
[2024-06-03] MEDS: Insulin Glargine,Hum.rec.anlog 100 UNIT/ML 10 ML VIAL 10 UNIT SUBCUT (21:46)
[2024-06-03] MEDS: Divalproex Sodium ER 250 MG TAB.ER.24H PO (21:47)
[2024-06-03] MEDS: QUEtiapine Fumarate 25 MG TABLET 12.5 MG PO (21:47)
[2024-06-04] VITALS (9 sets, daily range): BP systolic 118–159; BP diastolic 65–83; PULSE 58–158; RESP 16–20; TEMP 36–36.5; O2SAT 91–94; BMI 43.0
[2024-06-04] MEDS: metroNIDAZOLE 500 MG TABLET PO ×3 (04:29→21:52)
[2024-06-04 07:10] LABS: Anion Gap 17 (12-20); Blood Urea Nitrogen 30 mg/dL (9-16); Calcium 10.6 mg/dL (8.4-10.2); Carbon Dioxide 32 mmol/L (22-29); Chloride 96 mmol/L (96-108); Estimated Glomerular Filt Rate 41; Glucose Random 231 mg/dL (60-115); Potassium 4.1 mmol/L (3.3-5.1); Sodium 141 mmol/L (135-145)
[2024-06-04 07:13] LABS: B Type Natriuretic Peptide 110 pg/mL (<100)
[2024-06-04 07:39] LABS: Glucose, Whole Blood 268 mg/dL (60-115)
[2024-06-04] MEDS: amLODIPine Besylate 10 MG TABLET PO (08:10)
[2024-06-04] MEDS: Pramipexole Di-HCL 0.25 MG TABLET PO ×2 (08:10→21:56)
[2024-06-04] MEDS: Insulin Lispro 100 UNIT/ML 3 ML VIAL SUBCUT ×8 (08:10→22:02)
[2024-06-04] MEDS: Tamsulosin HCL 0.4 MG CAPSULE PO (08:10)
[2024-06-04] MEDS: Enoxaparin Sodium 40 MG/0.4 ML SYRINGE SUBCUT (08:10)
[2024-06-04] MEDS: Empagliflozin 25 MG TABLET PO (08:10)
[2024-06-04] MEDS: Ammonium Lactate 12 % Lotion 226 GM BOTTLE 1 APPL TOPICAL (08:13)
[2024-06-04] MEDS: 0.9 % Sodium Chloride Flush 3 ML SYRINGE IVFLUSH ×2 (08:13→22:06)
[2024-06-04 11:28] LABS: Glucose, Whole Blood 258 mg/dL (60-115)
[2024-06-04] MEDS: levoFLOXacin 500 MG TABLET PO (11:39)
--- NOTE | 2024-06-04 11:56 | PM.PNCARD ---
Subjective Subjective Date of Service: 06/04/24 Principal diagnosis: Right heart failure, acute kidney injury, bradycardia Interval history: Patient diuresed profusely. Creatinine has gone up. He said he did not sleep well overnight. When he was falling asleep he was noted to have low oxygen saturation. Was advised to take a nap and put a CPAP on. He is confused about overall picture. Since morning as about 5 episodes of SVT but has no significant symptoms and they all self terminating. Overnight continues to have Mobitz type 1 second-degree AV block with associated 2 is to 1 av block. His metoprolol is on hold. Blood pressure is stable. Review of Systems Constitutional: Reports weakness and Reports other (Tired) Eyes: Reports no additional eye complaints Cardiovascular: Reports no additional cardiovascular complaints Respiratory: Reports no additional respiratory complaints Gastrointestinal: Reports no additional gastrointestinal complaints Genitourinary: Reports no additional male genitourinary complaints Skin/Breast: Reports system reviewed and no additional complaints, except as docu Reports system reviewed and no additional complaints, except as documented and Reports weakness Physical Exam Vital Signs: Last Vital Signs Temp 97.7 F 06/04/24 11:38 Pulse 89 06/04/24 11:38 Resp 18 06/04/24 11:38 BP 128/83 06/04/24 11:38 Pulse Ox 94 06/04/24 11:38 O2 Del Method CPAP 06/04/24 11:38 O2 Flow Rate 2 06/04/24 11:38 Oxygen Flow Rate 2 05/27/24 22:26 BMI result Body Mass Index 43.0 Const General: cooperative, comfortable, alert, awake and in distress mild and respiratory Nutritional Appearance: obese morbidly obese Orientation/consciousness: patient oriented x3 Limitations: no limitations HEENT Head: Yes normocephalic and Yes atraumatic Neck Neck: Yes trachea midline, Yes supple and Yes other (Difficult to evaluate JVD due to body habitus) Resp Effort & Inspection: decreased respiratory effort Auscultation: no crackles, no wheezes and diminished lung sounds Cardio Palpation: normal PMI Rate: regular rate Rhythm: regular rhythm Heart sounds: S1 normal heart sound present, S2 normal heart sound present, no click, no gallops, no murmurs and no rubs GI Inspection: Yes distended Auscultation: normal bowel sounds Skin General skin exam: no rashes or lesions noted Neuro General: patient oriented x3 and no focal motor deficits Extrem General: No clubbing, No cyanosis and No edema (3 to 4+) Objective Labs and Meds 06/03/24 09:37 06/04/24 06:11 Lab results: Laboratory Results - last 24 hr 06/03/24 06/03/24 06/04/24 15:59 20:51 06:11 Sodium 141 Potassium 4.1 Chloride 96 Carbon Dioxide 32 H Anion Gap 17 BUN 30 H Creatinine 1.62 H Estim Creat Clear Calc 49.0 Estimated GFR 41 POC Glucose 416 H* 409 H* Random Glucose 231 H Calcium 10.6 H B-Natriuretic Peptide 110 H 06/04/24 06/04/24 07:36 10:56 Sodium Potassium Chloride Carbon Dioxide Anion Gap BUN Creatinine Estim Creat Clear Calc Estimated GFR POC Glucose 268 H 258 H Random Glucose Calcium B-Natriuretic Peptide Progress Note: A&P Assessment and plan (1) Acute CHF: Status: Acute Assessment and Plan: Acute congestive heart failure most likely right-sided heart failure related to untreated undertreated sleep apnea. Rapid diuresis probably reason for his rising creatinine. Agree with holding off on his diuretic regimen for 1 day. Start Bumex 1 mg starting tomorrow. Heart failure management discussed. Daily weight monitoring avoidance of salt loading was discussed. Would recommend him to have CPAP titration study as outpatient. Also consider having cardiac catheterization with right and left heart cardiac catheterization with his own sr. social media & mobile manager as outpatient. May benefit from CardioMEMS device after hemodynamic evaluation if he has significantly elevated left-sided filling pressures. (2) Mobitz type 1 second degree atrioventricular block: Status: Acute Assessment and Plan: Persistent Mobitz type 1 second-degree AV block. Patient has no symptoms related to it all of these episodes happening during sleep hours. Most likely undertreated obstructive sleep apnea. Also has episodes of SVT without symptoms. Would avoid metoprolol therapy at this point in time. Continue monitor and will require outpatient Holter monitor. Not patient requires pacing therapy at this point time. Will follow with you Time Spent With Patient Time: Total time managing care of this patient today ____ minutes. Progress Note: Quality Stroke Does the patient have a stroke diagnosis?: No Procedures Date of Service Date of Service: 06/04/24
--- NOTE | 2024-06-04 16:15 | HO.PM.IMPN ---
Subjective Subjective Date of Service: 06/04/24 Interval History: Being followed for acute diarrhea/SVT Complaining of tiredness this morning, did not sleep well last night, unable to express cause of lack of sleep, denies chest pain, no palpitation, no PND, no orthopnea, diarrhea resolved no nausea no vomiting tolerating diet. Review of Systems All other system reviewed and are negative. Physical Exam Vital Signs: Vital Signs: Last Vital Signs Temp 97.7 F 06/04/24 11:38 Pulse 82 06/04/24 15:55 Resp 20 06/04/24 15:55 BP 142/71 H 06/04/24 15:55 Pulse Ox 94 06/04/24 15:55 O2 Del Method Nasal Cannula 06/04/24 15:55 O2 Flow Rate 2 06/04/24 15:55 Oxygen Flow Rate 2 05/27/24 22:26 BMI result Body Mass Index 43.0 Const: Other: General awake alert x3, in no acute distress. Anicteric sclera Neck no JVD. CVS regular rate rhythm, Respiratory lungs clear to auscultation, no respiratory distress, no wheeze, no rhonchi, no crackles. Gastrointestinal abdomen soft, obese, non tender, bowel sounds audible. Extremities edema resolved. Neuro non focal . Skin no rash Psych appropriate affect Objective Data Active Medications Acetaminophen (Acetaminophen 325 Mg Tablet) 975 mg PO Q6H PRN PRN Reason: Pain, Mild (Pain Scale 1-3), fever or headache Last Admin: 06/03/24 21:47 Dose: 975 mg Documented By: AGUSTIN Albuterol Sulfate (Albuterol Sulfate 90 Mcg 8 Gm Inhaler) 2 puff INHALE Q6H PRN PRN Reason: SOB/Wheezing Amlodipine Besylate (Amlodipine Besylate 10 Mg Tablet) 10 mg PO DAILY [facility]; Protocol Last Admin: 06/04/24 08:10 Dose: 10 mg Documented By: SALAS Calcium Carbonate (Calcium Carbonate 750 Mg Tab.Chew) 750 mg PO Q4H PRN PRN Reason: Heartburn Divalproex Sodium (Divalproex Sodium Er 250 Mg Tab.Er.24h) 250 mg PO BEDTIME [facility] Last Admin: 06/03/24 21:47 Dose: 250 mg Documented By: AGUSTIN Empagliflozin (Empagliflozin 25 Mg Tablet) 25 mg PO DAILY [facility] Last Admin: 06/04/24 08:10 Dose: 25 mg Documented By: SALAS Enoxaparin Sodium (Enoxaparin Sodium 40 Mg/0.4 Ml Syringe) 40 mg SUBCUT Q24H [facility] Last Admin: 06/04/24 08:10 Dose: 40 mg Documented By: SALAS Glucose (Glucose Gel 15 Gm Gel..Gram.) 15 gm PO Q15M PRN; Protocol PRN Reason: per Hypoglycemia Standing Ord. Dextrose (D10) 250 mls @ 750 mls/hr IV Q15M PRN; Protocol PRN Reason: per Hypoglycemia Standing Ord. Insulin Glargine (Insulin Glargine,Hum.Rec.Anlog 100 Unit/Ml 10 Ml Vial) 10 unit SUBCUT BEDTIME [facility] Last Admin: 06/03/24 21:46 Dose: 10 unit Documented By: SCOTTLAMOxana Insulin Human Lispro (Insulin Lispro 100 Unit/Ml 3 Ml Vial) 0 unit SUBCUT QIDACHS [facility]; Protocol Last Admin: 06/04/24 11:39 Dose: 6 unit Documented By: SALAS Insulin Human Lispro (Insulin Lispro 100 Unit/Ml 3 Ml Vial) 5 unit SUBCUT QIDACHS [facility] Last Admin: 06/04/24 11:39 Dose: 5 unit Documented By: SALAS Lactic Acid (Ammonium Lactate 12 % Lotion 226 Gm Bottle) 1 appl TOPICAL DAILY [facility]; Protocol Last Admin: 06/04/24 08:13 Dose: 1 appl Documented By: SALAS Levofloxacin (Levofloxacin 500 Mg Tablet) 500 mg PO Q24H [facility] Last Admin: 06/04/24 11:39 Dose: 500 mg Documented By: SALAS Melatonin (Melatonin 3 Mg Tablet) 6 mg PO BEDTIME PRN PRN Reason: Insomnia Last Admin: 05/28/24 20:57 Dose: 6 mg Documented By: PAULINE Metronidazole (Metronidazole 500 Mg Tablet) 500 mg PO Q8H [facility] Last Admin: 06/04/24 13:18 Dose: 500 mg Documented By: SALAS Ondansetron HCl (Ondansetron Hcl 4 Mg/2 Ml Vial) 4 mg IVPUSH Q6H PRN PRN Reason: Nausea and Vomiting Last Admin: 06/01/24 20:48 Dose: 4 mg Documented By: EUGENIA Pramipexole Dihydrochloride (Pramipexole Di-Hcl 0.25 Mg Tablet) 0.25 mg PO BID [facility] Last Admin: 06/04/24 08:10 Dose: 0.25 mg Documented By: SALAS Quetiapine Fumarate (Quetiapine Fumarate 25 Mg Tablet) 12.5 mg PO BEDTIME [facility] Last Admin: 06/03/24 21:47 Dose: 12.5 mg Documented By: AGUSTIN Sodium Chloride (0.9 % Sodium Chloride Flush 3 Ml Syringe) 3 ml IVFLUSH QSHIFT [facility] Last Admin: 06/04/24 08:13 Dose: 3 ml Documented By: SALAS Tamsulosin HCl (Tamsulosin Hcl 0.4 Mg Capsule) 0.4 mg PO DAILY [facility] Last Admin: 06/04/24 08:10 Dose: 0.4 mg Documented By: SALAS Labs 06/03/24 09:37 06/04/24 06:11 Labs: Laboratory Results - last 24 hr 06/03/24 06/04/24 06/04/24 20:51 06:11 07:36 Anion Gap 17 Estim Creat Clear Calc 49.0 Estimated GFR 41 POC Glucose 409 H* 268 H Random Glucose 231 H Calcium 10.6 H B-Natriuretic Peptide 110 H 06/04/24 10:56 Anion Gap Estim Creat Clear Calc Estimated GFR POC Glucose 258 H Random Glucose Calcium B-Natriuretic Peptide Assessment and Plan (1) Campylobacter diarrhea: Status: Acute (2) E coli enteritis: Status: Acute (3) Acute renal failure: Status: Acute Plan Eleno Montoya is a 78 y/o man admitted with: Acute right-sided heart failure Resolved appears euvolemic diuresed greater than 11 L , noted to have slight bump in creatinine 1.62, will DC IV diuretics echo showed EF 65% Continue Jardiance 25mg daily, follow BMP, resume diuretics at a.m. patient was on Lasix 20 mg as needed at home. Outpatient follow-up with primary Cardiology Bradycardia with mobitz I Heart rate improved but continued to have Mobitz type 1 second-degree AV block with associated 2 is to 1 AV block, but noted to have multiple episodes of SVT patient remains asymptomatic Cardiology recommend outpatient Holter monitor and no pacing therapy at this time Cardio recommend to discontinue metoprolol. Acute hypoxic respiratory failure. Did not qualify for home oxygen ,continue CPAP at night MARTINE due to tubular injury due to poor by mouth intake, vomiting and diarrhea, valsartan discontinued, treated with IV fluids Slight bump in creatinine due to over-diuresis, monitor renal function closely Enteritis GI panel + for E coli and Campylobacter On IV levofloxacin and Flagyl (initiated 05/29/24), transitioned to by mouth antibiotic on 06/03 , will DC antibiotics 7 days No recurrent diarrhea blood cultures negative Essential hypertension with hypotension. Resolved . due to volume depletion from diarrhea s/p IVF/albumin baseline bp meds held initially stop metoprolol due to bradycardia valsartan stopped due to MARTINE cont. amlodipine follow BP closely Urinary retention Person placed Flomax resumed failed voiding trial x1 Type 2 diabetes mellitus with hypoglycemia likely due to poor by mouth intake due to diarrhea Hypoglycemia resolved now noted to have hyperglycemia on Lantus 10 units bedtime and increase dose of pre meal insulin Lactic acidosis, no severe sepsis criteria. Likely secondary to delayed clearance due to renal dysfunction resolved with IVF EKG changes EKG with t wave inversions on admission no chest pain, no previous for comparison d/w cardiology no further work up required - outpatient follow up with Cardiology for possible catheterization Hyperlipidemia. ezetimibe, fenofibrate and rosuvastatin. On hold due to diarrhea will resume upon discharge BPH. on Tamsulosin Mood disorder. Continue Depakote, pramipexole and Seroquel. RUPERTO. Nocturnal CPAP. DVT prophylaxis: Lovenox Code status: Full Disposition PT recommend short-term rehab encourage ambulation Ongoing inpatient stay for for close tele monitoring of bradycardia with Mobitz type 1 and SVT . Quality Stroke Does the patient have a stroke diagnosis?: No VTE Prior VTE?: No VTE Risk Level:: Medical - moderate - high VTE Device Contraindication: Treatment Not Indicated VTE Drug Contraindication: N/A - Med Ordered
[2024-06-04 16:17] LABS: Glucose, Whole Blood 247 mg/dL (60-115)
--- NOTE | 2024-06-04 16:46 | P.PNNP_ITS ---
Subjective Subjective Date of Service: 06/04/24 Principal diagnosis: Right heart failure, acute kidney injury, bradycardia Interval history: Complaining of tiredness this morning, denies chest pain, no palpitation, no PND, no orthopnea, diarrhea resolved ;no nausea no vomiting tolerating diet. Physical Exam 2 Vital Signs: Vital Signs: Last Vital Signs Temp 97.7 F 06/04/24 11:38 Pulse 82 06/04/24 15:55 Resp 20 06/04/24 15:55 BP 142/71 H 06/04/24 15:55 Pulse Ox 94 06/04/24 15:55 O2 Del Method Nasal Cannula 06/04/24 15:55 O2 Flow Rate 2 06/04/24 15:55 Oxygen Flow Rate 2 05/27/24 22:26 BMI result Body Mass Index 43.0 Const: General: no acute distress Eyes: EOM: EOMs intact bilaterally Resp: Auscultation: diminished lung sounds Cardio: Rate: regular rate GI: Palpation (GI): Soft to palpation Neuro: General: moves all extremities Objective Data Labs 06/03/24 09:37 06/04/24 06:11 Labs: Laboratory Results - last 24 hr 06/03/24 06/04/24 06/04/24 20:51 06:11 07:36 Sodium 141 Potassium 4.1 Chloride 96 Carbon Dioxide 32 H Anion Gap 17 BUN 30 H Creatinine 1.62 H Estim Creat Clear Calc 49.0 Estimated GFR 41 POC Glucose 409 H* 268 H Random Glucose 231 H Calcium 10.6 H B-Natriuretic Peptide 110 H 06/04/24 06/04/24 10:56 16:05 Sodium Potassium Chloride Carbon Dioxide Anion Gap BUN Creatinine Estim Creat Clear Calc Estimated GFR POC Glucose 258 H 247 H Random Glucose Calcium B-Natriuretic Peptide Microbiology Microbiology Results: Microbiology 05/28/24 02:23 Blood - Venous Blood Culture - Final No growth after 5 days. 05/28/24 02:24 Blood - Venous Blood Culture - Final No growth after 5 days. Procedures Date of Service Date of Service: 06/04/24 Assessment & Plan Assessment and plan (1) Acute renal failure: Status: Acute Plan MARTINE due to tubular injury Renal function stable; C/W with supportive care Expect complete renal recovery with time. Labs AM Progress Note: Quality Stroke Does the patient have a stroke diagnosis?: No
[2024-06-04 20:01] LABS: Glucose, Whole Blood 251 mg/dL (60-115)
[2024-06-04] MEDS: Divalproex Sodium ER 250 MG TAB.ER.24H PO (21:51)
[2024-06-04] MEDS: QUEtiapine Fumarate 25 MG TABLET 12.5 MG PO (21:51)
[2024-06-04] MEDS: Melatonin 3 MG TABLET 6 MG PO (21:51)
[2024-06-04] MEDS: Acetaminophen 325 MG TABLET 975 MG PO (21:52)
[2024-06-04] MEDS: Insulin Glargine,Hum.rec.anlog 100 UNIT/ML 10 ML VIAL 10 UNIT SUBCUT (22:01)
[2024-06-05] VITALS: BP 110/65; PULSE 65; RESP 18; TEMP 36.4; O2SAT 95
[2024-06-05 04:00] VITALS: BP 166/71; PULSE 67; RESP 18; TEMP 36.2; O2SAT 94
[2024-06-05] MEDS: metroNIDAZOLE 500 MG TABLET PO ×2 (05:20→12:00)
[2024-06-05 06:00] VITALS: BMI 42.3
[2024-06-05 08:00] VITALS: BP 147/78; PULSE 66; RESP 20; TEMP 36.5; O2SAT 95
[2024-06-05 08:07] LABS: Glucose, Whole Blood 263 mg/dL (60-115)
[2024-06-05] MEDS: Insulin Lispro 100 UNIT/ML 3 ML VIAL SUBCUT ×8 (08:24→21:56)
[2024-06-05] MEDS: 0.9 % Sodium Chloride Flush 3 ML SYRINGE IVFLUSH ×2 (08:25→21:56)
[2024-06-05] MEDS: Tamsulosin HCL 0.4 MG CAPSULE PO (08:25)
[2024-06-05] MEDS: amLODIPine Besylate 10 MG TABLET PO (08:25)
[2024-06-05] MEDS: Empagliflozin 25 MG TABLET PO (08:25)
[2024-06-05] MEDS: Enoxaparin Sodium 40 MG/0.4 ML SYRINGE SUBCUT (08:25)
[2024-06-05] MEDS: Pramipexole Di-HCL 0.25 MG TABLET PO ×2 (08:25→21:55)
[2024-06-05] MEDS: Ammonium Lactate 12 % Lotion 226 GM BOTTLE 1 APPL TOPICAL (08:26)
[2024-06-05 09:47] LABS: Anion Gap 18 (12-20); Blood Urea Nitrogen 27 mg/dL (9-16); Calcium 10.1 mg/dL (8.4-10.2); Carbon Dioxide 25 mmol/L (22-29); Chloride 99 mmol/L (96-108); Creatinine Clr Calc Pharmacy 48.9; Estimated Glomerular Filt Rate 42; Glucose Random 290 mg/dL (60-115); Potassium 3.8 mmol/L (3.3-5.1); Sodium 138 mmol/L (135-145)
--- NOTE | 2024-06-05 10:48 | P.PNCA_ITS ---
Subjective Subjective Date of Service: 06/05/24 Principal diagnosis: Right heart failure, acute kidney injury, bradycardia Interval history: Patient's creatinine is further up today. Denies any palpitations. Overnight less bradycardia. His heart rate goes up to 140-160 beats per minute with minimal exertion. His leg edema significantly improved. Overnight had some Mobitz type 1 second-degree AV degree block Review of Systems Constitutional: Reports no additional constitutional complaints Physical Exam Vital Signs: Last Vital Signs Temp 97.7 F 06/05/24 08:00 Pulse 66 06/05/24 08:00 Resp 20 06/05/24 08:00 BP 147/78 H 06/05/24 08:00 Pulse Ox 95 06/05/24 08:00 O2 Del Method Nasal Cannula 06/05/24 08:00 O2 Flow Rate 2 06/05/24 08:00 Oxygen Flow Rate 2 05/27/24 22:26 BMI result Body Mass Index 42.3 Const General: cooperative, comfortable, alert, awake and in distress mild and respiratory Nutritional Appearance: obese morbidly obese Orientation/consciousness: patient oriented x3 Limitations: no limitations HEENT Head: Yes normocephalic and Yes atraumatic Neck Neck: Yes trachea midline, Yes supple and Yes other (Difficult to evaluate JVD due to body habitus) Resp Effort & Inspection: decreased respiratory effort Auscultation: no crackles, no wheezes and diminished lung sounds Cardio Palpation: normal PMI Rate: regular rate Rhythm: regular rhythm Heart sounds: S1 normal heart sound present, S2 normal heart sound present, no click, no gallops, no murmurs and no rubs GI Inspection: Yes distended Auscultation: normal bowel sounds Skin General skin exam: no rashes or lesions noted Neuro General: patient oriented x3 and no focal motor deficits Extrem General: No clubbing, No cyanosis and No edema (3 to 4+) Objective Labs and Meds 06/03/24 09:37 06/05/24 08:56 Lab results: Laboratory Results - last 24 hr 06/04/24 06/04/24 06/04/24 10:56 16:05 19:53 Sodium Potassium Chloride Carbon Dioxide Anion Gap BUN Creatinine Estim Creat Clear Calc Estimated GFR POC Glucose 258 H 247 H 251 H Random Glucose Calcium 06/05/24 06/05/24 07:32 08:56 Sodium 138 Potassium 3.8 Chloride 99 Carbon Dioxide 25 Anion Gap 18 BUN 27 H Creatinine 1.61 H Estim Creat Clear Calc 48.9 Estimated GFR 42 POC Glucose 263 H Random Glucose 290 H Calcium 10.1 Progress Note: A&P Assessment and plan (1) Acute CHF: Status: Acute Assessment and Plan: Acute CHF which has completely resolved predominantly right-sided heart failure. Actually could be on the soda drier feeder side with rapid diuresis given that he is becoming tachycardia with minimal exertion could be related to decreased preload as well as deconditioning. Would gently hydrate 100 cc an hour for the next an hours and see his orthostatic response. No beta-alex therapy given his Mobitz type 1 second-degree AV block. Continue other antihypertensive therapy. Hold off on bumetanide therapy for today. Follow renal function tomorrow. (2) Mobitz type 1 second degree atrioventricular block: Status: Acute Assessment and Plan: Tachycardia with minimal exertion could represent SVT. Could also represent inappropriate or orthostatic tachycardia. Gentle hydration as above. Avoid beta-alex therapy. Physical therapy consult. Will follow with you Time Spent With Patient Time: Total time managing care of this patient today ____ minutes. Progress Note: Quality Stroke Does the patient have a stroke diagnosis?: No Procedures Date of Service Date of Service: 06/05/24
--- NOTE | 2024-06-05 11:26 | MHC.CM.PN ---
EMR reviewed and per MD rounds, pt is not medically cleared for discharge due to ongoing management of CHF, bradycardia w/ mobitz, and SVT's.
[2024-06-05 11:31] VITALS: BP 117/63; PULSE 63; RESP 20; TEMP 36.3; O2SAT 95
[2024-06-05 11:38] LABS: Glucose, Whole Blood 286 mg/dL (60-115)
[2024-06-05] MEDS: levoFLOXacin 500 MG TABLET PO (12:00)
--- NOTE | 2024-06-05 12:54 | HO.PM.IMPN ---
Subjective Subjective Date of Service: 06/05/24 Interval History: Being followed for acute kidney injury. Feeling better this morning still tired unable to sleep at night due to disruptions, denies chest pain, no palpitations no lightheadedness, no dizziness no no abdominal pain no diarrhea. Noted to have recurrent episodes of tachycardia heart rate up to 160s. Review of Systems All other system reviewed and are negative. Physical Exam Vital Signs: Vital Signs: Last Vital Signs Temp 97.4 F 06/05/24 11:31 Pulse 63 06/05/24 11:31 Resp 20 06/05/24 11:31 BP 117/63 06/05/24 11:31 Pulse Ox 95 06/05/24 11:31 O2 Del Method Nasal Cannula 06/05/24 11:31 O2 Flow Rate 2 06/05/24 11:31 Oxygen Flow Rate 2 05/27/24 22:26 BMI result Body Mass Index 42.3 Const: Other: General awake alert x3, in no acute distress. Anicteric sclera Neck no JVD. CVS regular rate rhythm, Respiratory lungs clear to auscultation, no respiratory distress, no wheeze, no rhonchi, no crackles. Gastrointestinal abdomen soft, obese, non tender, bowel sounds audible. Extremities edema resolved. Neuro non focal . Skin no rash Psych appropriate affect Objective Data Active Medications Acetaminophen (Acetaminophen 325 Mg Tablet) 975 mg PO Q6H PRN PRN Reason: Pain, Mild (Pain Scale 1-3), fever or headache Last Admin: 06/04/24 21:52 Dose: 975 mg Documented By: LIMA Albuterol Sulfate (Albuterol Sulfate 90 Mcg 8 Gm Inhaler) 2 puff INHALE Q6H PRN PRN Reason: SOB/Wheezing Amlodipine Besylate (Amlodipine Besylate 10 Mg Tablet) 10 mg PO DAILY [facility]; Protocol Last Admin: 06/05/24 08:25 Dose: 10 mg Documented By: SHAINA Calcium Carbonate (Calcium Carbonate 750 Mg Tab.Chew) 750 mg PO Q4H PRN PRN Reason: Heartburn Divalproex Sodium (Divalproex Sodium Er 250 Mg Tab.Er.24h) 250 mg PO BEDTIME [facility] Last Admin: 06/04/24 21:51 Dose: 250 mg Documented By: LIMA Empagliflozin (Empagliflozin 25 Mg Tablet) 25 mg PO DAILY [facility] Last Admin: 06/05/24 08:25 Dose: 25 mg Documented By: SHAINA Enoxaparin Sodium (Enoxaparin Sodium 40 Mg/0.4 Ml Syringe) 40 mg SUBCUT Q24H [facility] Last Admin: 06/05/24 08:25 Dose: 40 mg Documented By: SHAINA Glucose (Glucose Gel 15 Gm Gel..Gram.) 15 gm PO Q15M PRN; Protocol PRN Reason: per Hypoglycemia Standing Ord. Dextrose (D10) 250 mls @ 750 mls/hr IV Q15M PRN; Protocol PRN Reason: per Hypoglycemia Standing Ord. Insulin Glargine (Insulin Glargine,Hum.Rec.Anlog 100 Unit/Ml 10 Ml Vial) 10 unit SUBCUT BEDTIME [facility] Last Admin: 06/04/24 22:01 Dose: 10 unit Documented By: LIMA Insulin Human Lispro (Insulin Lispro 100 Unit/Ml 3 Ml Vial) 0 unit SUBCUT QIDACHS [facility]; Protocol Last Admin: 06/05/24 11:59 Dose: 6 unit Documented By: SHAINA Insulin Human Lispro (Insulin Lispro 100 Unit/Ml 3 Ml Vial) 5 unit SUBCUT QIDACHS [facility] Last Admin: 06/05/24 11:59 Dose: 5 unit Documented By: SHAINA Lactic Acid (Ammonium Lactate 12 % Lotion 226 Gm Bottle) 1 appl TOPICAL DAILY [facility]; Protocol Last Admin: 06/05/24 08:26 Dose: 1 appl Documented By: SHAINA Levofloxacin (Levofloxacin 500 Mg Tablet) 500 mg PO Q24H [facility] Last Admin: 06/05/24 12:00 Dose: 500 mg Documented By: SHAINA Melatonin (Melatonin 3 Mg Tablet) 6 mg PO BEDTIME PRN PRN Reason: Insomnia Last Admin: 06/04/24 21:51 Dose: 6 mg Documented By: LIMA Metronidazole (Metronidazole 500 Mg Tablet) 500 mg PO Q8H [facility] Last Admin: 06/05/24 12:00 Dose: 500 mg Documented By: SHAINA Ondansetron HCl (Ondansetron Hcl 4 Mg/2 Ml Vial) 4 mg IVPUSH Q6H PRN PRN Reason: Nausea and Vomiting Last Admin: 06/01/24 20:48 Dose: 4 mg Documented By: EUGENIA Pramipexole Dihydrochloride (Pramipexole Di-Hcl 0.25 Mg Tablet) 0.25 mg PO BID [facility] Last Admin: 06/05/24 08:25 Dose: 0.25 mg Documented By: SHAINA Quetiapine Fumarate (Quetiapine Fumarate 25 Mg Tablet) 12.5 mg PO BEDTIME [facility] Last Admin: 06/04/24 21:51 Dose: 12.5 mg Documented By: LIMA Sodium Chloride (0.9 % Sodium Chloride Flush 3 Ml Syringe) 3 ml IVFLUSH QSHIFT [facility] Last Admin: 06/05/24 08:25 Dose: 3 ml Documented By: SHAINA Tamsulosin HCl (Tamsulosin Hcl 0.4 Mg Capsule) 0.4 mg PO DAILY [facility] Last Admin: 06/05/24 08:25 Dose: 0.4 mg Documented By: SHAINA Labs 06/03/24 09:37 06/05/24 08:56 Labs: Laboratory Results - last 24 hr 06/04/24 06/04/24 06/05/24 16:05 19:53 07:32 Anion Gap Estim Creat Clear Calc Estimated GFR POC Glucose 247 H 251 H 263 H Random Glucose Calcium 06/05/24 06/05/24 08:56 11:25 Anion Gap 18 Estim Creat Clear Calc 48.9 Estimated GFR 42 POC Glucose 286 H Random Glucose 290 H Calcium 10.1 Assessment and Plan (1) Campylobacter diarrhea: Status: Acute (2) E coli enteritis: Status: Acute (3) Acute renal failure: Status: Acute Plan Eleno Montoya is a 78 y/o man admitted with: Acute right-sided heart failure Resolved appears euvolemic ,>11 L neg , noted to have slight bump in creatinine 1.6, diuretics discontinued, since having recurrent SVT will give 1 L of IV fluid today. echo showed EF 65% Continue Jardiance 25mg daily, follow BMP, Outpatient follow-up with primary Cardiology Bradycardia with mobitz I with recurrent episodes of SVT Heart rate improved but continued to have Mobitz type 1 second-degree AV block with associated 2 is to 1 AV block, but noted to have multiple episodes of SVT patient remains asymptomatic Cardiology recommend outpatient Holter monitor and no pacing therapy at this time, metoprolol discontinued. Acute hypoxic respiratory failure. Did not qualify for home oxygen ,continue CPAP at night MARTINE due to tubular injury due to poor by mouth intake, vomiting and diarrhea, valsartan discontinued, treated with IV fluids Slight bump in creatinine due to over-diuresis, monitor renal function closely Enteritis GI panel + for E coli and Campylobacter On IV levofloxacin and Flagyl (initiated 05/29/24), transitioned to by mouth antibiotic on 06/03 , will DC antibiotics today finish 7 day course No recurrent diarrhea blood cultures negative Essential hypertension with hypotension. Resolved . due to volume depletion from diarrhea s/p IVF/albumin baseline bp meds held initially stop metoprolol due to bradycardia valsartan stopped due to MARTINE cont. amlodipine follow BP closely Urinary retention Person placed Flomax resumed failed voiding trial x1 Type 2 diabetes mellitus with hypoglycemia likely due to poor by mouth intake due to diarrhea Hypoglycemia resolved now noted to have hyperglycemia on Lantus 10 units bedtime and increase dose of pre meal insulin Lactic acidosis, no severe sepsis criteria. Likely secondary to delayed clearance due to renal dysfunction resolved with IVF EKG changes EKG with t wave inversions on admission no chest pain, no previous for comparison d/w cardiology no further work up required - outpatient follow up with Cardiology for possible catheterization Hyperlipidemia. ezetimibe, fenofibrate and rosuvastatin. On hold due to diarrhea will resume upon discharge BPH. on Tamsulosin Mood disorder. Continue Depakote, pramipexole and Seroquel. RUPERTO. Nocturnal CPAP. DVT prophylaxis: Lovenox Code status: Full Disposition PT recommend short-term rehab encourage ambulation, noted to have sinus tachycardia/SVT with ambulation continue to monitor on telemetry Ongoing inpatient stay for for close tele monitoring of bradycardia with Mobitz type 1 and SVT . Quality Stroke Does the patient have a stroke diagnosis?: No VTE Prior VTE?: No VTE Risk Level:: Medical - moderate - high VTE Device Contraindication: Treatment Not Indicated VTE Drug Contraindication: N/A - Med Ordered
[2024-06-05] MEDS: 0.9 % Sodium Chloride 1,000 ML 100 ML IVCONT (14:26)
[2024-06-05 15:19] VITALS: BP 125/74; PULSE 75; RESP 18; TEMP 36.6; O2SAT 91
[2024-06-05 15:49] LABS: Glucose, Whole Blood 286 mg/dL (60-115)
--- NOTE | 2024-06-05 19:24 | P.PNNP_ITS ---
Subjective Subjective Date of Service: 06/05/24 Principal diagnosis: Right heart failure, acute kidney injury, bradycardia Interval history: Feeling better this morning ;Noted to have recurrent episodes of tachycardia heart rate up to 160s. Physical Exam 2 Vital Signs: Vital Signs: Last Vital Signs Temp 97.8 F 06/05/24 15:19 Pulse 75 06/05/24 15:19 Resp 18 06/05/24 15:19 BP 125/74 06/05/24 15:19 Pulse Ox 91 L 06/05/24 15:19 O2 Del Method Room Air 06/05/24 15:19 O2 Flow Rate 2 06/05/24 11:31 Oxygen Flow Rate 2 05/27/24 22:26 BMI result Body Mass Index 42.3 Const: General: no acute distress Orientation/consciousness: patient oriented x3 Eyes: EOM: EOMs intact bilaterally Resp: Auscultation: diminished lung sounds Cardio: Rate: regular rate GI: Palpation (GI): Soft to palpation Neuro: General: patient oriented x3 Objective Data Labs 06/03/24 09:37 06/05/24 08:56 Labs: Laboratory Results - last 24 hr 06/04/24 06/05/24 06/05/24 19:53 07:32 08:56 Sodium 138 Potassium 3.8 Chloride 99 Carbon Dioxide 25 Anion Gap 18 BUN 27 H Creatinine 1.61 H Estim Creat Clear Calc 48.9 Estimated GFR 42 POC Glucose 251 H 263 H Random Glucose 290 H Calcium 10.1 06/05/24 06/05/24 11:25 15:46 Sodium Potassium Chloride Carbon Dioxide Anion Gap BUN Creatinine Estim Creat Clear Calc Estimated GFR POC Glucose 286 H 286 H Random Glucose Calcium Microbiology Microbiology Results: Microbiology 05/28/24 02:23 Blood - Venous Blood Culture - Final No growth after 5 days. 05/28/24 02:24 Blood - Venous Blood Culture - Final No growth after 5 days. Procedures Date of Service Date of Service: 06/05/24 Assessment & Plan Assessment and plan (1) Acute renal failure: Status: Acute Plan MARTINE due to tubular injury Renal function stable; C/W with supportive care Labs AM; Shall F/U when D/Martin Progress Note: Quality Stroke Does the patient have a stroke diagnosis?: No
[2024-06-05 19:57] VITALS: BP 126/79; PULSE 78; RESP 18; TEMP 36.1; O2SAT 92
[2024-06-05 20:37] LABS: Glucose, Whole Blood 278 mg/dL (60-115)
[2024-06-05] MEDS: Acetaminophen 325 MG TABLET 975 MG PO (21:52)
[2024-06-05] MEDS: QUEtiapine Fumarate 25 MG TABLET 12.5 MG PO (21:53)
[2024-06-05] MEDS: Insulin Glargine,Hum.rec.anlog 100 UNIT/ML 10 ML VIAL 10 UNIT SUBCUT (21:55)
[2024-06-05] MEDS: Melatonin 3 MG TABLET 6 MG PO (21:55)
[2024-06-05] MEDS: Divalproex Sodium ER 250 MG TAB.ER.24H PO (21:56)
[2024-06-06] VITALS (7 sets, daily range): BP systolic 115–149; BP diastolic 60–70; PULSE 53–76; RESP 16–20; TEMP 36.1–37.2; O2SAT 90–96; BMI 43.0
[2024-06-06 07:28] LABS: Glucose, Whole Blood 175 mg/dL (60-115)
[2024-06-06 07:29] LABS: Anion Gap 15 (12-20); Blood Urea Nitrogen 28 mg/dL (9-16); Calcium 9.8 mg/dL (8.4-10.2); Carbon Dioxide 27 mmol/L (22-29); Chloride 102 mmol/L (96-108); Estimated Glomerular Filt Rate 41; Glucose Random 181 mg/dL (60-115); Potassium 3.8 mmol/L (3.3-5.1); Sodium 140 mmol/L (135-145)
[2024-06-06] MEDS: Pramipexole Di-HCL 0.25 MG TABLET PO ×2 (08:40→21:23)
[2024-06-06] MEDS: amLODIPine Besylate 10 MG TABLET PO (08:40)
[2024-06-06] MEDS: Tamsulosin HCL 0.4 MG CAPSULE PO (08:40)
[2024-06-06] MEDS: Insulin Lispro 100 UNIT/ML 3 ML VIAL SUBCUT ×8 (08:40→21:26)
[2024-06-06] MEDS: Empagliflozin 25 MG TABLET PO (08:41)
[2024-06-06] MEDS: Enoxaparin Sodium 40 MG/0.4 ML SYRINGE SUBCUT (08:41)
[2024-06-06] MEDS: Ammonium Lactate 12 % Lotion 226 GM BOTTLE 1 APPL TOPICAL (08:45)
[2024-06-06] MEDS: 0.9 % Sodium Chloride Flush 3 ML SYRINGE IVFLUSH ×3 (08:49→21:26)
[2024-06-06 12:01] LABS: Glucose, Whole Blood 285 mg/dL (60-115)
--- NOTE | 2024-06-06 12:23 | HO.PM.IMPN ---
Subjective Subjective Date of Service: 06/06/24 Interval History: Being followed for Mobitz type 1/recurrent SVT Offers no acute complaints, not sleeping well at night due to CPAP and frequent vital checks, denies chest pain, no shortness of breath, no PND, no orthopnea, no lightheadedness, no dizziness tolerating diet with no nausea, no vomiting, no abdominal pain or diarrhea,Noted to have no sinus tachycardia overnight but this morning with ambulation noted to have SVT followed by sinus tach, but remained asymptomatic. Review of Systems All other system reviewed and negative Physical Exam Vital Signs: Vital Signs: Last Vital Signs Temp 97.0 F 06/06/24 07:29 Pulse 54 06/06/24 07:29 Resp 20 06/06/24 07:29 BP 149/70 H 06/06/24 07:29 Pulse Ox 94 06/06/24 07:29 O2 Del Method CPAP 06/06/24 07:29 O2 Flow Rate 2 06/05/24 11:31 Oxygen Flow Rate 2 05/27/24 22:26 BMI result Body Mass Index 43.0 Const: Other: General awake alert x3, in no acute distress. Anicteric sclera Neck no JVD. CVS regular rate rhythm, Respiratory lungs clear to auscultation, no respiratory distress, no wheeze, no rhonchi, no crackles. Gastrointestinal abdomen soft, obese, non tender, bowel sounds audible. Extremities edema resolved. Neuro non focal . Skin no rash Psych appropriate affect Objective Data Active Medications Acetaminophen (Acetaminophen 325 Mg Tablet) 975 mg PO Q6H PRN PRN Reason: Pain, Mild (Pain Scale 1-3), fever or headache Last Admin: 06/05/24 21:52 Dose: 975 mg Documented By: AGUSTIN Albuterol Sulfate (Albuterol Sulfate 90 Mcg 8 Gm Inhaler) 2 puff INHALE Q6H PRN PRN Reason: SOB/Wheezing Amlodipine Besylate (Amlodipine Besylate 10 Mg Tablet) 10 mg PO DAILY [facility]; Protocol Last Admin: 06/06/24 08:40 Dose: 10 mg Documented By: SYLVIE Calcium Carbonate (Calcium Carbonate 750 Mg Tab.Chew) 750 mg PO Q4H PRN PRN Reason: Heartburn Divalproex Sodium (Divalproex Sodium Er 250 Mg Tab.Er.24h) 250 mg PO BEDTIME [facility] Last Admin: 06/05/24 21:56 Dose: 250 mg Documented By: AGUSTIN Empagliflozin (Empagliflozin 25 Mg Tablet) 25 mg PO DAILY [facility] Last Admin: 06/06/24 08:41 Dose: 25 mg Documented By: SYLVIE Enoxaparin Sodium (Enoxaparin Sodium 40 Mg/0.4 Ml Syringe) 40 mg SUBCUT Q24H [facility] Last Admin: 06/06/24 08:41 Dose: 40 mg Documented By: SYLVIE Glucose (Glucose Gel 15 Gm Gel..Gram.) 15 gm PO Q15M PRN; Protocol PRN Reason: per Hypoglycemia Standing Ord. Dextrose (D10) 250 mls @ 750 mls/hr IV Q15M PRN; Protocol PRN Reason: per Hypoglycemia Standing Ord. Insulin Glargine (Insulin Glargine,Hum.Rec.Anlog 100 Unit/Ml 10 Ml Vial) 10 unit SUBCUT BEDTIME [facility] Last Admin: 06/05/24 21:55 Dose: 10 unit Documented By: AGUSTIN Insulin Human Lispro (Insulin Lispro 100 Unit/Ml 3 Ml Vial) 0 unit SUBCUT QIDACHS [facility]; Protocol Last Admin: 06/06/24 12:11 Dose: 6 unit Documented By: SYLVIE Insulin Human Lispro (Insulin Lispro 100 Unit/Ml 3 Ml Vial) 5 unit SUBCUT QIDACHS [facility] Last Admin: 06/06/24 12:11 Dose: 5 unit Documented By: SYLVIE Lactic Acid (Ammonium Lactate 12 % Lotion 226 Gm Bottle) 1 appl TOPICAL DAILY [facility]; Protocol Last Admin: 06/06/24 08:45 Dose: 1 appl Documented By: SYLVIE Melatonin (Melatonin 3 Mg Tablet) 6 mg PO BEDTIME PRN PRN Reason: Insomnia Last Admin: 06/05/24 21:55 Dose: 6 mg Documented By: AGUSTIN Ondansetron HCl (Ondansetron Hcl 4 Mg/2 Ml Vial) 4 mg IVPUSH Q6H PRN PRN Reason: Nausea and Vomiting Last Admin: 06/01/24 20:48 Dose: 4 mg Documented By: EUGENIA Pramipexole Dihydrochloride (Pramipexole Di-Hcl 0.25 Mg Tablet) 0.25 mg PO BID [facility] Last Admin: 06/06/24 08:40 Dose: 0.25 mg Documented By: SYLVIE Quetiapine Fumarate (Quetiapine Fumarate 25 Mg Tablet) 12.5 mg PO BEDTIME [facility] Last Admin: 06/05/24 21:53 Dose: 12.5 mg Documented By: AGUSTIN Sodium Chloride (0.9 % Sodium Chloride Flush 3 Ml Syringe) 3 ml IVFLUSH QSHIFT [facility] Last Admin: 06/06/24 08:49 Dose: 3 ml Documented By: SYLVIE Tamsulosin HCl (Tamsulosin Hcl 0.4 Mg Capsule) 0.4 mg PO DAILY [facility] Last Admin: 06/06/24 08:40 Dose: 0.4 mg Documented By: SYLVIE Labs 06/03/24 09:37 06/06/24 06:40 Labs: Laboratory Results - last 24 hr 06/05/24 06/05/24 06/06/24 15:46 20:32 06:40 Hold Purple Top SEE NOTE Anion Gap 15 Estim Creat Clear Calc 49.0 Estimated GFR 41 POC Glucose 286 H 278 H Random Glucose 181 H Calcium 9.8 06/06/24 06/06/24 07:20 11:41 Hold Purple Top Anion Gap Estim Creat Clear Calc Estimated GFR POC Glucose 175 H 285 H Random Glucose Calcium Assessment and Plan (1) Campylobacter diarrhea: Status: Acute (2) E coli enteritis: Status: Acute (3) Acute renal failure: Status: Acute Plan Eleno Montoya is a 78 y/o man admitted with: Acute right-sided heart failure Resolved appears euvolemic ,>11 L neg echo showed EF 65% Continue Jardiance 25mg daily, follow BMP, hold diuretics for now due to elevated creatinine Outpatient follow-up with primary Cardiology Bradycardia with mobitz I with recurrent episodes of SVT Heart rate improved but continued to have Mobitz type 1 second-degree AV block with associated 2 is to 1 AV block, but noted to have multiple episodes of SVT patient remains asymptomatic Cardiology recommend outpatient Holter monitor and no pacing therapy at this time No improvement in sinus tachycardia/SVT with IV fluids, Cardio recommend to resume Toprol-XL 25 mg daily due to recurrent SVT mostly with activity. Acute hypoxic respiratory failure. Did not qualify for home oxygen ,continue CPAP at night MARTINE due to tubular injury due to poor by mouth intake, vomiting and diarrhea, valsartan discontinued, treated with IV fluids Slight bump in creatinine due to over-diuresis, monitor renal function closely Enteritis GI panel + for E coli and Campylobacter Finish 7 day course of Levaquin and Flagyl No recurrent diarrhea blood cultures negative Essential hypertension with hypotension. Resolved . due to volume depletion from diarrhea s/p IVF/albumin baseline bp meds held initially valsartan stopped due to MARTINE cont. amlodipine follow BP closely Urinary retention Person placed Flomax resumed failed voiding trial x1 Type 2 diabetes mellitus with hypoglycemia likely due to poor by mouth intake due to diarrhea Hypoglycemia resolved now noted to have hyperglycemia Increase Lantus to 15 units bedtime and cont. pre meal insulin and insulin sliding scale Lactic acidosis, no severe sepsis criteria. Likely secondary to delayed clearance due to renal dysfunction resolved with IVF EKG changes EKG with t wave inversions on admission no chest pain, no previous for comparison d/w cardiology no further work up required - outpatient follow up with Cardiology for possible catheterization Hyperlipidemia. ezetimibe, fenofibrate and rosuvastatin. On hold due to diarrhea will resume upon discharge BPH. on Tamsulosin Mood disorder. Continue Depakote, pramipexole and Seroquel. RUPERTO. Nocturnal CPAP. DVT prophylaxis: Lovenox Code status: Full Disposition PT recommend short-term rehab encourage ambulation, noted to have sinus tachycardia/SVT with ambulation continue to monitor on telemetry Ongoing inpatient stay for for close tele monitoring of bradycardia with Mobitz type 1 and SVT . Quality Stroke Does the patient have a stroke diagnosis?: No VTE Prior VTE?: No VTE Risk Level:: Medical - moderate - high VTE Device Contraindication: Treatment Not Indicated VTE Drug Contraindication: N/A - Med Ordered
--- NOTE | 2024-06-06 13:11 | PM.PNCARD ---
Subjective Subjective Date of Service: 06/06/24 Principal diagnosis: Right heart failure, acute kidney injury, bradycardia Interval history: Patient with minimal exertional still having episodes of SVT. Not sinus tachycardia. Patient asymptomatic with this episodes. Blood pressure remains stable. Overnight noted to have Mobitz type 1 second-degree AV block. Heart failure symptoms improved. Creatinine is still elevated. Review of Systems Constitutional: Reports no additional constitutional complaints Cardiovascular: Reports no additional cardiovascular complaints Musculoskeletal: Reports no additional musculoskeletal complaints Reports system reviewed and no additional complaints, except as documented Physical Exam Vital Signs: Last Vital Signs Temp 97.3 F 06/06/24 12:00 Pulse 69 06/06/24 12:00 Resp 20 06/06/24 12:00 BP 130/60 06/06/24 12:00 Pulse Ox 90 L 06/06/24 12:00 O2 Del Method Room Air 06/06/24 12:00 O2 Flow Rate 2 06/05/24 11:31 Oxygen Flow Rate 2 05/27/24 22:26 BMI result Body Mass Index 43.0 Const General: cooperative, comfortable, alert, awake and in distress mild and respiratory Nutritional Appearance: obese morbidly obese Orientation/consciousness: patient oriented x3 Limitations: no limitations HEENT Head: Yes normocephalic and Yes atraumatic Neck Neck: Yes trachea midline, Yes supple and Yes other (Difficult to evaluate JVD due to body habitus) Resp Effort & Inspection: decreased respiratory effort Auscultation: no crackles, no wheezes and diminished lung sounds Cardio Palpation: normal PMI Rate: regular rate Rhythm: regular rhythm Heart sounds: S1 normal heart sound present, S2 normal heart sound present, no click, no gallops, no murmurs and no rubs GI Inspection: Yes distended Auscultation: normal bowel sounds Skin General skin exam: no rashes or lesions noted Neuro General: patient oriented x3 and no focal motor deficits Extrem General: No clubbing, No cyanosis and No edema (3 to 4+) Objective Labs and Meds 06/03/24 09:37 06/06/24 06:40 Lab results: Laboratory Results - last 24 hr 06/05/24 06/05/24 06/06/24 15:46 20:32 06:40 Hold Purple Top SEE NOTE Sodium 140 Potassium 3.8 Chloride 102 Carbon Dioxide 27 Anion Gap 15 BUN 28 H Creatinine 1.62 H Estim Creat Clear Calc 49.0 Estimated GFR 41 POC Glucose 286 H 278 H Random Glucose 181 H Calcium 9.8 06/06/24 06/06/24 07:20 11:41 Hold Purple Top Sodium Potassium Chloride Carbon Dioxide Anion Gap BUN Creatinine Estim Creat Clear Calc Estimated GFR POC Glucose 175 H 285 H Random Glucose Calcium Progress Note: A&P Assessment and plan (1) SVT (supraventricular tachycardia): Status: Acute Assessment and Plan: Patient has sudden episodes SVT with minimal exertion which is unusual. Although will prevent him from being discharged as he is running pretty rapid will restart Toprol-XL 25 mg daily to his regimen. Continue monitor on cardiac telemetry. Once SVT suppressed can be discharged from cardiac perspective. (2) Mobitz type 1 second degree atrioventricular block: Status: Acute Assessment and Plan: Mobitz type 1 second-degree AV block. Clinically no symptoms related to it and no hemodynamic compromise. Restarting metoprolol. Watch for advanced AV block although this is unlikely. No indication for pacer. (3) Acute CHF: Status: Acute Assessment and Plan: CHF clinically euvolemic and well compensated well diuresed. Creatinine is still elevated. Would hold off on any further fluids or diuretics. Continue Jardiance therapy. Once creatinine downtrending can resume bumetanide therapy. Will consider Bumex 2 mg daily after that. Heart failure management discussed. Daily weight my avoidance of salt loading was discussed. Predominantly right heart failure but could be related to LV diastolic dysfunction. Will require cardiac catheterization as outpatient to evaluate for coronary anatomy and graft anatomy as well as hemodynamics. May benefit from CardioMEMS device outpatient. Advised to follow-up with his own traffic controller cable. Will sign of the case. Thank you for allowing me to partake in his care Time Spent With Patient Time: Total time managing care of this patient today ____ minutes. Progress Note: Quality Stroke Does the patient have a stroke diagnosis?: No Procedures Date of Service Date of Service: 06/06/24
[2024-06-06 16:45] LABS: Glucose, Whole Blood 244 mg/dL (60-115)
[2024-06-06 20:34] LABS: Glucose, Whole Blood 317 mg/dL (60-115)
[2024-06-06] MEDS: Divalproex Sodium ER 250 MG TAB.ER.24H PO (21:24)
[2024-06-06] MEDS: QUEtiapine Fumarate 25 MG TABLET 12.5 MG PO (21:24)
[2024-06-06] MEDS: Insulin Glargine,Hum.rec.anlog 100 UNIT/ML 10 ML VIAL 15 UNIT SUBCUT (21:26)
[2024-06-07] VITALS (7 sets, daily range): BP systolic 100–160; BP diastolic 68–79; PULSE 52–90; RESP 14–20; TEMP 36.3–36.6; O2SAT 93–97; BMI 43.5
[2024-06-07 07:56] LABS: Glucose, Whole Blood 188 mg/dL (60-115)
[2024-06-07] MEDS: amLODIPine Besylate 10 MG TABLET PO (08:10)
[2024-06-07] MEDS: Empagliflozin 25 MG TABLET PO (08:10)
[2024-06-07] MEDS: Tamsulosin HCL 0.4 MG CAPSULE PO (08:11)
[2024-06-07] MEDS: Insulin Lispro 100 UNIT/ML 3 ML VIAL SUBCUT ×8 (08:11→20:44)
[2024-06-07] MEDS: Pramipexole Di-HCL 0.25 MG TABLET PO ×2 (08:11→20:25)
[2024-06-07] MEDS: 0.9 % Sodium Chloride Flush 3 ML SYRINGE IVFLUSH ×3 (08:11→20:27)
[2024-06-07] MEDS: Enoxaparin Sodium 40 MG/0.4 ML SYRINGE SUBCUT (08:11)
[2024-06-07] MEDS: Ammonium Lactate 12 % Lotion 226 GM BOTTLE 1 APPL TOPICAL (08:12)
--- NOTE | 2024-06-07 10:29 | HO.PM.IMPN ---
Subjective Subjective Date of Service: 06/07/24 Interval History: Being followed for enteritis/fluid overload. Feeling better offers no acute complaints, no shortness of breath, no PND, no orthopnea, no leg edema tolerating diet no acute issues overnight tele monitor showed no episode of SVT, heart rate stable. Review of Systems All other systems are reviewed and are negative. Physical Exam Vital Signs: Vital Signs: Last Vital Signs Temp 97.6 F 06/07/24 07:49 Pulse 52 06/07/24 07:49 Resp 19 06/07/24 07:49 BP 160/79 H 06/07/24 07:49 Pulse Ox 97 06/07/24 07:49 O2 Del Method CPAP 06/07/24 07:49 O2 Flow Rate 2 06/06/24 19:48 Oxygen Flow Rate 2 05/27/24 22:26 BMI result Body Mass Index 43.5 Const: Other: General awake alert x3, in no acute distress. Anicteric sclera Neck no JVD. CVS regular rate rhythm, Respiratory lungs clear to auscultation, no respiratory distress, no wheeze, no rhonchi, no crackles. Gastrointestinal abdomen soft, obese, non tender, bowel sounds audible. Extremities edema resolved. Neuro non focal . Skin no rash Psych appropriate affect Objective Data Active Medications Acetaminophen (Acetaminophen 325 Mg Tablet) 975 mg PO Q6H PRN PRN Reason: Pain, Mild (Pain Scale 1-3), fever or headache Last Admin: 06/05/24 21:52 Dose: 975 mg Documented By: AGUSTIN Albuterol Sulfate (Albuterol Sulfate 90 Mcg 8 Gm Inhaler) 2 puff INHALE Q6H PRN PRN Reason: SOB/Wheezing Amlodipine Besylate (Amlodipine Besylate 10 Mg Tablet) 10 mg PO DAILY [facility]; Protocol Last Admin: 06/07/24 08:10 Dose: 10 mg Documented By: SYLVIE Calcium Carbonate (Calcium Carbonate 750 Mg Tab.Chew) 750 mg PO Q4H PRN PRN Reason: Heartburn Divalproex Sodium (Divalproex Sodium Er 250 Mg Tab.Er.24h) 250 mg PO BEDTIME [facility] Last Admin: 06/06/24 21:24 Dose: 250 mg Documented By: AGUSTIN Empagliflozin (Empagliflozin 25 Mg Tablet) 25 mg PO DAILY [facility] Last Admin: 06/07/24 08:10 Dose: 25 mg Documented By: SYLVIE Enoxaparin Sodium (Enoxaparin Sodium 40 Mg/0.4 Ml Syringe) 40 mg SUBCUT Q24H [facility] Last Admin: 06/07/24 08:11 Dose: 40 mg Documented By: SYLVIE Glucose (Glucose Gel 15 Gm Gel..Gram.) 15 gm PO Q15M PRN; Protocol PRN Reason: per Hypoglycemia Standing Ord. Dextrose (D10) 250 mls @ 750 mls/hr IV Q15M PRN; Protocol PRN Reason: per Hypoglycemia Standing Ord. Insulin Glargine (Insulin Glargine,Hum.Rec.Anlog 100 Unit/Ml 10 Ml Vial) 15 unit SUBCUT BEDTIME [facility] Last Admin: 06/06/24 21:26 Dose: 15 unit Documented By: AGUSTIN Insulin Human Lispro (Insulin Lispro 100 Unit/Ml 3 Ml Vial) 0 unit SUBCUT QIDACHS [facility]; Protocol Last Admin: 06/07/24 08:11 Dose: 2 unit Documented By: SYLVIE Insulin Human Lispro (Insulin Lispro 100 Unit/Ml 3 Ml Vial) 5 unit SUBCUT QIDACHS [facility] Last Admin: 06/07/24 08:11 Dose: 5 unit Documented By: SYLVIE Lactic Acid (Ammonium Lactate 12 % Lotion 226 Gm Bottle) 1 appl TOPICAL DAILY [facility]; Protocol Last Admin: 06/07/24 08:12 Dose: 1 appl Documented By: SYLVIE Melatonin (Melatonin 3 Mg Tablet) 6 mg PO BEDTIME PRN PRN Reason: Insomnia Last Admin: 06/05/24 21:55 Dose: 6 mg Documented By: AGUSTIN Ondansetron HCl (Ondansetron Hcl 4 Mg/2 Ml Vial) 4 mg IVPUSH Q6H PRN PRN Reason: Nausea and Vomiting Last Admin: 06/01/24 20:48 Dose: 4 mg Documented By: EUGENIA Pramipexole Dihydrochloride (Pramipexole Di-Hcl 0.25 Mg Tablet) 0.25 mg PO BID [facility] Last Admin: 06/07/24 08:11 Dose: 0.25 mg Documented By: SYLVIE Quetiapine Fumarate (Quetiapine Fumarate 25 Mg Tablet) 12.5 mg PO BEDTIME [facility] Last Admin: 06/06/24 21:24 Dose: 12.5 mg Documented By: AGUSTIN Sodium Chloride (0.9 % Sodium Chloride Flush 3 Ml Syringe) 3 ml IVFLUSH QSHIFT [facility] Last Admin: 06/07/24 08:11 Dose: 3 ml Documented By: SYLVIE Tamsulosin HCl (Tamsulosin Hcl 0.4 Mg Capsule) 0.4 mg PO DAILY [facility] Last Admin: 06/07/24 08:11 Dose: 0.4 mg Documented By: SYLVIE Labs 06/03/24 09:37 06/06/24 06:40 Labs: Laboratory Results - last 24 hr 06/06/24 06/06/24 06/06/24 11:41 16:34 20:03 POC Glucose 285 H 244 H 317 H 06/07/24 07:52 POC Glucose 188 H Assessment and Plan (1) Campylobacter diarrhea: Status: Acute (2) E coli enteritis: Status: Acute (3) Acute renal failure: Status: Acute Plan Eleno Montoya is a 78 y/o man admitted with nausea, vomiting, nonbloody diarrhea and generalized weakness and diagnosed to have acute kidney injury, acute lactic acidosis and admitted with a diagnosis of enteritis and MARTINE: Acute right-sided heart failure Resolved remains euvolemic ,>11 L neg echo showed EF 65% Continue Jardiance 25mg daily, follow BMP, hold diuretics for now Outpatient follow-up with primary Cardiology Bradycardia with mobitz I with recurrent episodes of SVT Heart rate improved but continued to have Mobitz type 1 second-degree AV block , no recurrent episodes of SVT Cardiology recommend outpatient Holter monitor and no pacing therapy at this time Will hold Toprol-XL and monitor on telemetry/if recurrent SVT will resume metoprolol Acute hypoxic respiratory failure. Did not qualify for home oxygen ,continue CPAP at night MARTINE due to tubular injury due to poor by mouth intake, vomiting and diarrhea, valsartan discontinued, treated with IV fluids Slight bump in creatinine due to over-diuresis, monitor renal function closely Enteritis GI panel + for E coli and Campylobacter Finish 7 day course of Levaquin and Flagyl No recurrent diarrhea blood cultures negative Essential hypertension with hypotension. Resolved . due to volume depletion from diarrhea s/p IVF/albumin baseline bp meds held initially valsartan stopped due to MARTINE cont. amlodipine follow BP closely Urinary retention Person placed Flomax resumed failed voiding trial x1, recommend outpatient voiding trial next week Type 2 diabetes mellitus with hypoglycemia likely due to poor by mouth intake due to diarrhea Hypoglycemia resolved now noted to have hyperglycemia Increase Lantus to 15 units bedtime and cont. pre meal insulin and insulin sliding scale, resume home medications upon discharge Lactic acidosis, no severe sepsis criteria. Likely secondary to delayed clearance due to renal dysfunction resolved with IVF EKG changes EKG with t wave inversions on admission no chest pain, no previous for comparison d/w cardiology no further work up required - outpatient follow up with Cardiology for possible catheterization Hyperlipidemia. ezetimibe, fenofibrate and rosuvastatin. On hold due to diarrhea will resume upon discharge BPH. on Tamsulosin Mood disorder. Continue Depakote, pramipexole and Seroquel. RUPERTO. Nocturnal CPAP. DVT prophylaxis: Lovenox Code status: Full Disposition PT recommend short-term rehab encourage ambulation, continue to monitor on telemetry Ongoing inpatient stay for for close tele monitoring of bradycardia with Mobitz type 1 and SVT . Quality Stroke Does the patient have a stroke diagnosis?: No VTE Prior VTE?: No VTE Risk Level:: Medical - moderate - high VTE Device Contraindication: Treatment Not Indicated VTE Drug Contraindication: N/A - Med Ordered
[2024-06-07 11:04] LABS: Glucose, Whole Blood 305 mg/dL (60-115)
--- NOTE | 2024-06-07 12:55 | P.PNCA_ITS ---
Subjective Subjective Date of Service: 06/07/24 Principal diagnosis: Right heart failure, acute kidney injury, bradycardia Interval history: Patient still having episodes of SVT when he moves. Not sinus tachycardia. Subsides once he rests. Highly unusual. He is currently not on metoprolol therapy. No trouble breathing. Leg edema seems controlled. No creatinine done today. Review of Systems Constitutional: Reports fatigue Cardiovascular: Reports no additional cardiovascular complaints Respiratory: Reports no additional respiratory complaints Genitourinary: Reports no additional male genitourinary complaints Musculoskeletal: Reports no additional musculoskeletal complaints Reports system reviewed and no additional complaints, except as documented Endocrine: Reports fatigue Physical Exam Vital Signs: Last Vital Signs Temp 97.5 F 06/07/24 10:57 Pulse 90 06/07/24 10:57 Resp 19 06/07/24 10:57 BP 100/68 06/07/24 10:57 Pulse Ox 93 06/07/24 10:57 O2 Del Method Room Air 06/07/24 10:57 O2 Flow Rate 2 06/06/24 19:48 Oxygen Flow Rate 2 05/27/24 22:26 BMI result Body Mass Index 43.5 Objective Labs and Meds 06/03/24 09:37 06/06/24 06:40 Lab results: Laboratory Results - last 24 hr 06/06/24 06/06/24 06/07/24 16:34 20:03 07:52 POC Glucose 244 H 317 H 188 H 06/07/24 10:59 POC Glucose 305 H Progress Note: A&P Assessment and plan (1) SVT (supraventricular tachycardia): Status: Acute Assessment and Plan: SVT recurrent with minimal exertion. This is highly unpredictable. This is not sinus tachycardia related to deconditioning and/or dehydration. Heart consider starting on low-dose metoprolol 25 mg daily to prevent rehospitalization for tachycardia once he goes to nursing facility. He does not Mobitz type 1 second- degree AV block which is not advanced to require pacing therapy. Outpatient CPAP therapy should be evaluated with repeat CPAP titration study. (2) Acute CHF: Status: Acute Assessment and Plan: Heart failure. Clinically euvolemic and well compensated. Can start you Bumex 1 mg daily. Continue Jardiance. Heart failure education to be provided. Will require outpatient cardiac workup including cardiac catheterization with hemodynamics and coronary evaluation. Consider CardioMEMS as outpatient. Will sign of the case. Thank you for allowing me to partake in his care Time Spent With Patient Time: Total time managing care of this patient today ____ minutes. Progress Note: Quality Stroke Does the patient have a stroke diagnosis?: No Procedures Date of Service Date of Service: 06/07/24
--- NOTE | 2024-06-07 13:30 | MHC.CM.PN ---
CM met with Patient's and Daughter to discuss dc planning. Patient's Daughter is taking tomorrow off to do research on getting [facility] a [facility] fac[facility] ([facility].e [facility] [place] [facility] [place]). Daughter states that she will know before noon if any such facility is an option for dc; if not, they will make a choice truman between the 2 accepting SNFs ([facility] & [facility]). CM will follow.
[2024-06-07 16:18] LABS: Glucose, Whole Blood 268 mg/dL (60-115)
[2024-06-07] MEDS: Divalproex Sodium ER 250 MG TAB.ER.24H PO (20:25)
[2024-06-07] MEDS: QUEtiapine Fumarate 25 MG TABLET 12.5 MG PO (20:25)
[2024-06-07 20:41] LABS: Glucose, Whole Blood 268 mg/dL (60-115)
[2024-06-07] MEDS: Insulin Glargine,Hum.rec.anlog 100 UNIT/ML 10 ML VIAL 15 UNIT SUBCUT (20:42)
[2024-06-08] VITALS (9 sets, daily range): BP systolic 130–156; BP diastolic 62–70; PULSE 64–83; RESP 16–20; TEMP 36.1–36.6; O2SAT 93–95; BMI 41.4
[2024-06-08 07:38] LABS: Glucose, Whole Blood 219 mg/dL (60-115)
[2024-06-08] MEDS: Insulin Lispro 100 UNIT/ML 3 ML VIAL SUBCUT ×8 (08:02→21:32)
[2024-06-08] MEDS: Enoxaparin Sodium 40 MG/0.4 ML SYRINGE SUBCUT (08:02)
[2024-06-08] MEDS: Pramipexole Di-HCL 0.25 MG TABLET PO ×2 (08:03→21:25)
[2024-06-08] MEDS: Tamsulosin HCL 0.4 MG CAPSULE PO (08:03)
[2024-06-08] MEDS: amLODIPine Besylate 10 MG TABLET PO (08:03)
[2024-06-08] MEDS: Empagliflozin 25 MG TABLET PO (08:03)
[2024-06-08] MEDS: Ammonium Lactate 12 % Lotion 226 GM BOTTLE 1 APPL TOPICAL (08:04)
[2024-06-08] MEDS: 0.9 % Sodium Chloride Flush 3 ML SYRINGE IVFLUSH ×2 (08:04→16:37)
[2024-06-08 09:24] LABS: Estimated Glomerular Filt Rate 41
[2024-06-08] MEDS: Metoprolol Succinate ER 25 MG TAB.ER.24H PO (09:27)
[2024-06-08 11:05] LABS: Glucose, Whole Blood 295 mg/dL (60-115)
[2024-06-08] MEDS: Acetaminophen 325 MG TABLET 975 MG PO (14:12)
--- NOTE | 2024-06-08 14:34 | P.PNIM_ITS ---
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 Enteritis resolved Offers no acute complaints, noted to have persistent type 1 heart block overnight with heart rate in 50s this morning noted to be in SVT, remained asymptomatic denies chest pain, no shortness of breath, no palpitations, no lightheadedness or dizziness. Review of Systems All other systems are reviewed and are negative. Physical Exam 2 Vital Signs: Vital Signs: Last Vital Signs Temp 97.2 F 06/08/24 11:04 Pulse 64 06/08/24 14:04 Resp 20 06/08/24 11:04 BP 133/70 06/08/24 14:04 Pulse Ox 93 06/08/24 14:04 O2 Del Method Room Air 06/08/24 11:04 O2 Flow Rate 2 06/08/24 03:18 Oxygen Flow Rate 2 05/27/24 22:26 BMI result Body Mass Index 41.4 Const: Other: General awake alert x3, in no acute distress. Anicteric sclera Neck no JVD. CVS regular rate rhythm, Respiratory lungs clear to auscultation, no respiratory distress, no wheeze, no rhonchi, no crackles. Gastrointestinal abdomen soft, obese, non tender, bowel sounds audible. Extremities edema resolved. Neuro non focal . Skin no rash Psych appropriate affect Objective Data Active Medications Acetaminophen (Acetaminophen 325 Mg Tablet) 975 mg PO Q6H PRN PRN Reason: Pain, Mild (Pain Scale 1-3), fever or headache Last Admin: 06/08/24 14:12 Dose: 975 mg Documented By: RADHIKA Albuterol Sulfate (Albuterol Sulfate 90 Mcg 8 Gm Inhaler) 2 puff INHALE Q6H PRN PRN Reason: SOB/Wheezing Amlodipine Besylate (Amlodipine Besylate 10 Mg Tablet) 10 mg PO DAILY [facility]; Protocol Last Admin: 06/08/24 08:03 Dose: 10 mg Documented By: SALAS Calcium Carbonate (Calcium Carbonate 750 Mg Tab.Chew) 750 mg PO Q4H PRN PRN Reason: Heartburn Divalproex Sodium (Divalproex Sodium Er 250 Mg Tab.Er.24h) 250 mg PO BEDTIME [facility] Last Admin: 06/07/24 20:25 Dose: 250 mg Documented By: AGUSTÍN Empagliflozin (Empagliflozin 25 Mg Tablet) 25 mg PO DAILY [facility] Last Admin: 06/08/24 08:03 Dose: 25 mg Documented By: SALAS Enoxaparin Sodium (Enoxaparin Sodium 40 Mg/0.4 Ml Syringe) 40 mg SUBCUT Q24H [facility] Last Admin: 06/08/24 08:02 Dose: 40 mg Documented By: SALAS Glucose (Glucose Gel 15 Gm Gel..Gram.) 15 gm PO Q15M PRN; Protocol PRN Reason: per Hypoglycemia Standing Ord. Dextrose (D10) 250 mls @ 750 mls/hr IV Q15M PRN; Protocol PRN Reason: per Hypoglycemia Standing Ord. Insulin Glargine (Insulin Glargine,Hum.Rec.Anlog 100 Unit/Ml 10 Ml Vial) 15 unit SUBCUT BEDTIME [facility] Last Admin: 06/07/24 20:42 Dose: 15 unit Documented By: AGUSTÍN Insulin Human Lispro (Insulin Lispro 100 Unit/Ml 3 Ml Vial) 0 unit SUBCUT QIDACHS [facility]; Protocol Last Admin: 06/08/24 12:11 Dose: 6 unit Documented By: SALAS Insulin Human Lispro (Insulin Lispro 100 Unit/Ml 3 Ml Vial) 5 unit SUBCUT QIDACHS [facility] Last Admin: 06/08/24 12:12 Dose: 5 unit Documented By: SALAS Lactic Acid (Ammonium Lactate 12 % Lotion 226 Gm Bottle) 1 appl TOPICAL DAILY [facility]; Protocol Last Admin: 06/08/24 08:04 Dose: 1 appl Documented By: SALAS Melatonin (Melatonin 3 Mg Tablet) 6 mg PO BEDTIME PRN PRN Reason: Insomnia Last Admin: 06/05/24 21:55 Dose: 6 mg Documented By: SCOTTLAMOxana Metoprolol Succinate (Metoprolol Succinate Er 25 Mg Tab.Er.24h) 25 mg PO DAILY [facility]; Protocol Last Admin: 06/08/24 09:27 Dose: 25 mg Documented By: SALAS Ondansetron HCl (Ondansetron Hcl 4 Mg/2 Ml Vial) 4 mg IVPUSH Q6H PRN PRN Reason: Nausea and Vomiting Last Admin: 06/01/24 20:48 Dose: 4 mg Documented By: EUGENIA Pramipexole Dihydrochloride (Pramipexole Di-Hcl 0.25 Mg Tablet) 0.25 mg PO BID [facility] Last Admin: 06/08/24 08:03 Dose: 0.25 mg Documented By: SALAS Quetiapine Fumarate (Quetiapine Fumarate 25 Mg Tablet) 12.5 mg PO BEDTIME [facility] Last Admin: 06/07/24 20:25 Dose: 12.5 mg Documented By: AGUSTÍN Sodium Chloride (0.9 % Sodium Chloride Flush 3 Ml Syringe) 3 ml IVFLUSH QSHIFT [facility] Last Admin: 06/08/24 08:04 Dose: 3 ml Documented By: SALAS Tamsulosin HCl (Tamsulosin Hcl 0.4 Mg Capsule) 0.4 mg PO DAILY [facility] Last Admin: 06/08/24 08:03 Dose: 0.4 mg Documented By: SALAS Labs 06/03/24 09:37 06/08/24 08:59 Labs: Laboratory Results - last 24 hr 06/07/24 06/07/24 06/08/24 16:13 20:34 07:07 Estim Creat Clear Calc Estimated GFR POC Glucose 268 H 268 H 219 H 06/08/24 06/08/24 08:59 11:01 Estim Creat Clear Calc 48.0 Estimated GFR 41 POC Glucose 295 H Assessment and Plan (1) Campylobacter diarrhea: Status: Acute (2) E coli enteritis: Status: Acute (3) Acute renal failure: Status: Acute Plan Eleno Montoya is a 78 y/o man admitted with nausea, vomiting, nonbloody diarrhea and generalized weakness and diagnosed to have acute kidney injury, acute lactic acidosis and admitted with a diagnosis of enteritis and MARTINE: Acute right-sided heart failure Resolved remains euvolemic ,>11 L neg echo showed EF 65% Continue Jardiance 25mg daily, follow BMP, hold diuretics for now Outpatient follow-up with primary Cardiology Bradycardia with mobitz I with recurrent episodes of SVT Heart rate improved but continued to have Mobitz type 1 second-degree AV block , with recurrent episodes of SVT Cardiology recommend outpatient Holter monitor and no pacing therapy at this time Will place on low-dose Toprol-XL and monitor on telemetry for bradycardia. Acute hypoxic respiratory failure. Did not qualify for home oxygen ,continue CPAP at night MARTINE due to tubular injury due to poor by mouth intake, vomiting and diarrhea, valsartan discontinued, treated with IV fluids Slight bump in creatinine due to over-diuresis, monitor renal function closely, hold diuretics Enteritis GI panel + for E coli and Campylobacter Finish 7 day course of Levaquin and Flagyl No recurrent diarrhea blood cultures negative Essential hypertension with hypotension. Resolved . due to volume depletion from diarrhea s/p IVF/albumin baseline bp meds held initially valsartan stopped due to MARTINE cont. amlodipine follow BP closely Urinary retention Person placed Flomax resumed failed voiding trial x1, recommend outpatient voiding trial next week Type 2 diabetes mellitus with hypoglycemia likely due to poor by mouth intake due to diarrhea Hypoglycemia resolved now noted to have hyperglycemia Increase Lantus to 20 units bedtime and cont. pre meal insulin and insulin sliding scale, resume home medications upon discharge Lactic acidosis, no severe sepsis criteria. Likely secondary to delayed clearance due to renal dysfunction resolved with IVF EKG changes EKG with t wave inversions on admission no chest pain, no previous for comparison d/w cardiology no further work up required - outpatient follow up with Cardiology for possible catheterization Hyperlipidemia. ezetimibe, fenofibrate and rosuvastatin. On hold due to diarrhea will resume upon discharge BPH. on Tamsulosin Mood disorder. Continue Depakote, pramipexole and Seroquel. RUPERTO. Nocturnal CPAP. DVT prophylaxis: Lovenox Code status: Full Disposition PT recommend short-term rehab encourage ambulation, continue to monitor on telemetry Ongoing inpatient stay for for close tele monitoring of bradycardia with Mobitz type 1 and SVT . Quality Stroke Does the patient have a stroke diagnosis?: No VTE Prior VTE?: No VTE Risk Level:: Medical - moderate - high VTE Device Contraindication: Treatment Not Indicated VTE Drug Contraindication: N/A - Med Ordered
--- NOTE | 2024-06-08 15:03 | MHC.CM.PN ---
EMR reviewed and per MD rounds, pt is medically cleared for discharge to [facility]. This CM met with pt to discuss discharge plan and he has [facility], [facility] has given pt a bed offer and will go for auth and will likely discharge tomorrow. New HCP completed with pt, now on file.
[2024-06-08 16:23] LABS: Glucose, Whole Blood 229 mg/dL (60-115)
[2024-06-08 21:15] LABS: Glucose, Whole Blood 249 mg/dL (60-115)
[2024-06-08] MEDS: Divalproex Sodium ER 250 MG TAB.ER.24H PO (21:25)
[2024-06-08] MEDS: QUEtiapine Fumarate 25 MG TABLET 12.5 MG PO (21:25)
[2024-06-08] MEDS: Insulin Glargine,Hum.rec.anlog 100 UNIT/ML 10 ML VIAL 20 UNIT SUBCUT (21:31)
[2024-06-09] VITALS: BP 118/70; PULSE 70; RESP 18; TEMP 36.2; O2SAT 96
[2024-06-09] MEDS: 0.9 % Sodium Chloride Flush 3 ML SYRINGE IVFLUSH ×2 (03:09→08:21)
[2024-06-09 03:30] VITALS: BP 134/65; PULSE 59; RESP 18; TEMP 36.3; O2SAT 94
[2024-06-09 06:00] VITALS: BMI 41.6
[2024-06-09 07:33] LABS: Glucose, Whole Blood 172 mg/dL (60-115)
[2024-06-09 07:34] VITALS: BP 129/74; PULSE 64; RESP 20; TEMP 37.1; O2SAT 94
[2024-06-09] MEDS: Insulin Lispro 100 UNIT/ML 3 ML VIAL SUBCUT ×2 (08:20)
[2024-06-09 08:21] VITALS: BP 129/74; PULSE 64
[2024-06-09] MEDS: Pramipexole Di-HCL 0.25 MG TABLET PO (08:21)
[2024-06-09] MEDS: Empagliflozin 25 MG TABLET PO (08:21)
[2024-06-09] MEDS: Metoprolol Succinate ER 25 MG TAB.ER.24H PO (08:21)
[2024-06-09] MEDS: Enoxaparin Sodium 40 MG/0.4 ML SYRINGE SUBCUT (08:21)
[2024-06-09] MEDS: amLODIPine Besylate 10 MG TABLET PO (08:21)
[2024-06-09] MEDS: Tamsulosin HCL 0.4 MG CAPSULE PO (08:21)
[2024-06-09] MEDS: Ammonium Lactate 12 % Lotion 226 GM BOTTLE 1 APPL TOPICAL (08:23)
--- NOTE | 2024-06-09 09:38 | PM.PNCARD ---
Subjective Subjective Date of Service: 06/09/24 Principal diagnosis: Right heart failure, acute kidney injury, bradycardia Interval history: I was asked to see him today because of bradycardia on telemetry. Discussed with patient, and also discussed with Dr. Olvera who saw him over the last few days. There was concern for heart block this a.m. and hence we are consulting. Patient still states he is actually feeling better since time of arrival. It seems that he was admitted for GI issues which got better and then he was in heart failure and that is also improved. He has been having runs of both tachycardia as well as bradycardia on telemetry. Review of Systems Review of Systems Yes all other systems are reviewed and are negative Constitutional: Reports as per HPI and Reports no additional constitutional complaints Eyes: Reports as per HPI and Denies no additional eye complaints Denies system reviewed and no additional complaints, except as documented and Reports as per HPI Cardiovascular: Reports as per HPI, Reports no additional cardiovascular complaints, Denies acrocyanosis, Denies cool extremities, Denies chest pain, Denies leg edema, Denies lightheadedness, Denies palpitations and Denies dyspnea Respiratory: Reports as per HPI, Denies no additional respiratory complaints and Denies dyspnea Gastrointestinal: Reports as per HPI and Denies no additional gastrointestinal complaints Genitourinary: Reports no additional male genitourinary complaints and Reports as per HPI Musculoskeletal: Reports no additional musculoskeletal complaints and Reports as per HPI Skin/Breast: Reports system reviewed and no additional complaints, except as docu Reports system reviewed and no additional complaints, except as documented and Reports as per HPI Psychiatric: Reports no additional psychiatric complaints and Reports as per HPI Endocrine: Reports no additional endocrine complaints, Reports as per HPI and Denies palpitations Hematologic/Lymphatic: Reports no additional hematologic/lymphatic complaints and Reports as per HPI Allergic/Immunologic: Reports no additional allergic/immunologic complaints and Reports as per HPI Physical Exam Vital Signs: Last Vital Signs Temp 98.8 F 06/09/24 07:34 Pulse 64 06/09/24 08:21 Resp 20 06/09/24 07:34 BP 129/74 06/09/24 08:21 Pulse Ox 94 06/09/24 07:34 O2 Del Method CPAP 06/09/24 07:34 O2 Flow Rate 2 06/08/24 03:18 Oxygen Flow Rate 2 05/27/24 22:26 BMI result Body Mass Index 41.6 Const General: comfortable and no acute distress Orientation/consciousness: patient oriented x3 HEENT Other: Unremarkable Head: Yes normal to inspection Neck Neck: Yes normal visual inspection Chest Chest palpation & inspection: normal inspection of the chest Resp Auscultation: clear to auscultation bilaterally Cardio Palpation: normal PMI Heart sounds: S1 normal heart sound present, S2 normal heart sound present, no gallops, Murmur heart sound present systolic II/ and at the right sternal border and no rubs GI Palpation (GI): Soft to palpation Back/Spine/Pelvis Other: unremarkable Skin General skin exam: no rashes or lesions noted Neuro General: patient oriented x3 Extrem General: Yes normal to inspection Psych Mental Status: mental status grossly normal Objective Labs and Meds 06/03/24 09:37 06/08/24 08:59 Lab results: Laboratory Results - last 24 hr 06/08/24 06/08/24 06/08/24 11:01 16:19 21:08 POC Glucose 295 H 229 H 249 H 06/09/24 07:22 POC Glucose 172 H Progress Note: A&P Assessment and plan (1) SVT (supraventricular tachycardia): Status: Acute (2) Second degree heart block: Status: Acute Plan Telemetry strips were reviewed in detail. Essentially, he is having episodes of tachycardia where the heart rate goes into the low 100s. Somewhere in the 120s. Could be atrial tachycardia. Less likely flutter. When this breaks he does go into sinus rhythm. During those times, he has a first-degree heart block. Then at other times he shows evidence of Mobitz type 1 second-degree heart block. This a.m. around 0617 hours, he did have a second-degree heart block. Findings discussed with patient and also discussed with EP service at [facility]. Dr. Rosa, and sent over the strips. He agrees that patient needs EP evaluation for pacemaker. Hence we will arrange transfer for the same. He seems to be a small dose of beta-alex for the tachycardia but hold that for now. Discussed with Dr. Park. Time Spent With Patient Time: Total time managing care of this patient today ____ minutes. Progress Note: Quality Stroke Does the patient have a stroke diagnosis?: No Procedures Date of Service Date of Service: 06/09/24
[2024-06-09 11:02] LABS: Glucose, Whole Blood 201 mg/dL (60-115)
[2024-06-09 11:17] VITALS: BP 101/64; PULSE 73; RESP 20; TEMP 36.7; O2SAT 93
--- NOTE | 2024-06-09 12:51 | P.PNNP_ITS ---
Subjective Subjective Date of Service: 06/09/24 Principal diagnosis: Right heart failure, acute kidney injury, bradycardia Interval history: Events noted Physical Exam 2 Vital Signs: Vital Signs: Last Vital Signs Temp 98.0 F 06/09/24 11:17 Pulse 73 06/09/24 11:17 Resp 20 06/09/24 11:17 BP 101/64 06/09/24 11:17 Pulse Ox 93 06/09/24 11:17 O2 Del Method Room Air 06/09/24 11:17 O2 Flow Rate 2 06/08/24 03:18 Oxygen Flow Rate 2 05/27/24 22:26 BMI result Body Mass Index 41.6 Objective Data Labs 06/03/24 09:37 06/08/24 08:59 Labs: Laboratory Results - last 24 hr 06/08/24 06/08/24 06/09/24 16:19 21:08 07:22 POC Glucose 229 H 249 H 172 H 06/09/24 10:50 POC Glucose 201 H Microbiology Microbiology Results: Microbiology 05/28/24 02:23 Blood - Venous Blood Culture - Final No growth after 5 days. 05/28/24 02:24 Blood - Venous Blood Culture - Final No growth after 5 days. Procedures Date of Service Date of Service: 06/09/24 Assessment & Plan Assessment and plan (1) Acute renal failure: Status: Acute Plan MARTINE due to tubular injury Renal function stable; C/W with supportive care Mangement per cardiology Still with chris since he failed TOV USe LAsix 20 mg PRN Time Spent With Patient Time: Total time managing care of this patient today ____ minutes. Progress Note: Quality Stroke Does the patient have a stroke diagnosis?: No
--- NOTE | 2024-06-09 12:55 | HO.PM.IMPN ---
Subjective Subjective Date of Service: 06/09/24 Physical Exam Vital Signs: Vital Signs: Last Vital Signs Temp 98.0 F 06/09/24 11:17 Pulse 73 06/09/24 11:17 Resp 20 06/09/24 11:17 BP 101/64 06/09/24 11:17 Pulse Ox 93 06/09/24 11:17 O2 Del Method Room Air 06/09/24 11:17 O2 Flow Rate 2 06/08/24 03:18 Oxygen Flow Rate 2 05/27/24 22:26 BMI result Body Mass Index 41.6 Objective Data Active Medications Acetaminophen (Acetaminophen 325 Mg Tablet) 975 mg PO Q6H PRN PRN Reason: Pain, Mild (Pain Scale 1-3), fever or headache Last Admin: 06/08/24 14:12 Dose: 975 mg Documented By: RADHIKA Albuterol Sulfate (Albuterol Sulfate 90 Mcg 8 Gm Inhaler) 2 puff INHALE Q6H PRN PRN Reason: SOB/Wheezing Amlodipine Besylate (Amlodipine Besylate 10 Mg Tablet) 10 mg PO DAILY [facility]; Protocol Last Admin: 06/09/24 08:21 Dose: 10 mg Documented By: SALAS Calcium Carbonate (Calcium Carbonate 750 Mg Tab.Chew) 750 mg PO Q4H PRN PRN Reason: Heartburn Divalproex Sodium (Divalproex Sodium Er 250 Mg Tab.Er.24h) 250 mg PO BEDTIME [facility] Last Admin: 06/08/24 21:25 Dose: 250 mg Documented By: PAULINE Empagliflozin (Empagliflozin 25 Mg Tablet) 25 mg PO DAILY [facility] Last Admin: 06/09/24 08:21 Dose: 25 mg Documented By: SALAS Enoxaparin Sodium (Enoxaparin Sodium 40 Mg/0.4 Ml Syringe) 40 mg SUBCUT Q24H [facility] Last Admin: 06/09/24 08:21 Dose: 40 mg Documented By: SALAS Glucose (Glucose Gel 15 Gm Gel..Gram.) 15 gm PO Q15M PRN; Protocol PRN Reason: per Hypoglycemia Standing Ord. Dextrose (D10) 250 mls @ 750 mls/hr IV Q15M PRN; Protocol PRN Reason: per Hypoglycemia Standing Ord. Insulin Glargine (Insulin Glargine,Hum.Rec.Anlog 100 Unit/Ml 10 Ml Vial) 20 unit SUBCUT BEDTIME [facility] Last Admin: 06/08/24 21:31 Dose: 20 unit Documented By: PAULINE Insulin Human Lispro (Insulin Lispro 100 Unit/Ml 3 Ml Vial) 0 unit SUBCUT QIDACHS [facility]; Protocol Last Admin: 06/09/24 11:08 Dose: Not Given Documented By: SALAS Non-Admin Reason: NPO Insulin Human Lispro (Insulin Lispro 100 Unit/Ml 3 Ml Vial) 5 unit SUBCUT QIDACHS [facility] Last Admin: 06/09/24 11:08 Dose: Not Given Documented By: SALAS Non-Admin Reason: NPO Lactic Acid (Ammonium Lactate 12 % Lotion 226 Gm Bottle) 1 appl TOPICAL DAILY [facility]; Protocol Last Admin: 06/09/24 08:23 Dose: 1 appl Documented By: SALAS Melatonin (Melatonin 3 Mg Tablet) 6 mg PO BEDTIME PRN PRN Reason: Insomnia Last Admin: 06/05/24 21:55 Dose: 6 mg Documented By: AGUSTIN Metoprolol Succinate (Metoprolol Succinate Er 25 Mg Tab.Er.24h) 25 mg PO DAILY [facility]; Protocol Last Admin: 06/09/24 08:21 Dose: 25 mg Documented By: SALAS Ondansetron HCl (Ondansetron Hcl 4 Mg/2 Ml Vial) 4 mg IVPUSH Q6H PRN PRN Reason: Nausea and Vomiting Last Admin: 06/01/24 20:48 Dose: 4 mg Documented By: EUGENIA Pramipexole Dihydrochloride (Pramipexole Di-Hcl 0.25 Mg Tablet) 0.25 mg PO BID [facility] Last Admin: 06/09/24 08:21 Dose: 0.25 mg Documented By: SALAS Quetiapine Fumarate (Quetiapine Fumarate 25 Mg Tablet) 12.5 mg PO BEDTIME [facility] Last Admin: 06/08/24 21:25 Dose: 12.5 mg Documented By: PAULINE Sodium Chloride (0.9 % Sodium Chloride Flush 3 Ml Syringe) [facility] Last Admin: 06/09/24 08:21 Dose: 3 ml Documented By: SALAS Tamsulosin HCl (Tamsulosin Hcl 0.4 Mg Capsule) 0.4 mg PO DAILY [facility] Last Admin: 06/09/24 08:21 Dose: 0.4 mg Documented By: SALAS Labs 06/03/24 09:37 06/08/24 08:59 Labs: Laboratory Results - last 24 hr 06/08/24 06/08/24 06/09/24 16:19 21:08 07:22 POC Glucose 229 H 249 H 172 H 06/09/24 10:50 POC Glucose 201 H Assessment and Plan (1) Campylobacter diarrhea: Status: Acute (2) E coli enteritis: Status: Acute (3) Acute renal failure: Status: Acute Plan Eleno Montoya is a 78 y/o man admitted with nausea, vomiting, nonbloody diarrhea and generalized weakness and diagnosed to have acute kidney injury, acute lactic acidosis and admitted with a diagnosis of enteritis and MARTINE: Acute right-sided heart failure Resolved remains euvolemic ,>11 L neg echo showed EF 65% Continue Jardiance 25mg daily, follow BMP, hold diuretics for now Outpatient follow-up with primary Cardiology Bradycardia with mobitz I with recurrent episodes of SVT Heart rate improved but continued to have Mobitz type 1 second-degree AV block , with recurrent episodes of SVT Cardiology recommend outpatient Holter monitor and no pacing therapy at this time Will place on low-dose Toprol-XL and monitor on telemetry for bradycardia. Acute hypoxic respiratory failure. Did not qualify for home oxygen ,continue CPAP at night MARTINE due to tubular injury due to poor by mouth intake, vomiting and diarrhea, valsartan discontinued, treated with IV fluids Slight bump in creatinine due to over-diuresis, monitor renal function closely, hold diuretics Enteritis GI panel + for E coli and Campylobacter Finish 7 day course of Levaquin and Flagyl No recurrent diarrhea blood cultures negative Essential hypertension with hypotension. Resolved . due to volume depletion from diarrhea s/p IVF/albumin baseline bp meds held initially valsartan stopped due to MARTINE cont. amlodipine follow BP closely Urinary retention Person placed Flomax resumed failed voiding trial x1, recommend outpatient voiding trial next week Type 2 diabetes mellitus with hypoglycemia likely due to poor by mouth intake due to diarrhea Hypoglycemia resolved now noted to have hyperglycemia Increase Lantus to 20 units bedtime and cont. pre meal insulin and insulin sliding scale, resume home medications upon discharge Lactic acidosis, no severe sepsis criteria. Likely secondary to delayed clearance due to renal dysfunction resolved with IVF EKG changes EKG with t wave inversions on admission no chest pain, no previous for comparison d/w cardiology no further work up required - outpatient follow up with Cardiology for possible catheterization Hyperlipidemia. ezetimibe, fenofibrate and rosuvastatin. On hold due to diarrhea will resume upon discharge BPH. on Tamsulosin Mood disorder. Continue Depakote, pramipexole and Seroquel. RUPERTO. Nocturnal CPAP. DVT prophylaxis: Lovenox Code status: Full Disposition PT recommend short-term rehab encourage ambulation, continue to monitor on telemetry Ongoing inpatient stay for for close tele monitoring of bradycardia with Mobitz type 1 and SVT . Quality Stroke Does the patient have a stroke diagnosis?: No VTE Prior VTE?: No VTE Risk Level:: Medical - moderate - high VTE Device Contraindication: Treatment Not Indicated VTE Drug Contraindication: N/A - Med Ordered
--- NOTE | 2024-06-09 13:09 | PM.DS ---
DS: Providers Provider Date of Service: 06/09/24 Date of admission: 05/28/24 03:12 Primary care physician: Unknown Physician Consults: 05/28/24 15:10 Consult to Nephrology Routine Consulting Provider: [facility] Reason for consultation: MARTINE Has provider been notified: No 05/28/24 15:48 Consult to Cardiology Routine Consulting Provider: [facility] Reason for consultation: ekg changes Has provider been notified: No 06/02/24 03:55 Consult to Cardiology Routine Consulting Provider: [facility] Reason for consultation: bradycardia Has provider been notified: Yes DS: Diagnosis Discharge Diagnosis (1) Campylobacter diarrhea: Status: Acute (2) E coli enteritis: Status: Acute (3) Acute renal failure: Status: Acute DS: Summary Hospital Course Hospital Course: History of presenting illness: Date of Service: 05/28/24 Attending physician on admission: Nelly Valdez Chief Complaint: Nausea, vomiting and diarrhea Eleno Montoya is a 78 years old man with past medical history significant for RUPERTO on CPAP, type 2 diabetes mellitus on insulin, obesity, BPH, hyperlipidemia and essential hypertension was brought to the emergency department via EMS due to 2 days history of nausea, vomiting and nonbloody diarrhea. He does have associated generalized weakness. He denied associated abdominal pain or any acute urinary symptoms. He reported shortness on breath on exertion which he mainly attributed to obstructive sleep apnea. Denies chest pain, dizziness or palpitations. Denied tobacco smoking, alcohol abuse or illicit drug use. He takes furosemide for fluid retention. In the ED, he was found to have stable vital signs. Last blood pressure is 99/56. Blood workup showed no leukocytosis. Hemoglobin and platelets are normal. There are no electrolyte imbalances. He was found to have a blood glucose of 54, repeat was 69. Creatinine is 2.27 and BUN 36 (no baseline creatinine level on our system). Lactic acid is 2.8. LFTs and albumin are normal. Viral testing is negative for COVID-19, RSV influenza. ED tx: NS 2 L bolus, Zofran 4 mg IV Hospital course: 78 y/o man admitted with nausea, vomiting, non bloody diarrhea and generalized weakness and diagnosed to have acute kidney injury, acute lactic acidosis and admitted with a diagnosis of enteritis and MARTINE He was admitted to telemetry unit treated aggressively with IV fluid, anti emetics,GI panel came back positive for E coli and Campylobacter, he finished total 7 day course of Levaquin and Flagyl ,diarrhea resolved, blood cultures are negative, subsequently patient noted to to have fluid overload /right-sided heart failure, treated with iv diuretics ,echo showed EF 65% he was continued on Jardiance and diuretics were held since appeared euvolemic with slight bump in creatinine, his oxygenation remained stable and he has been continued on CPAP, but during course of hospitalization patient noted to have bradycardia with Mobitz type 1 heart block therefore his beta-blockers were discontinued, heart rate improved to be in 50-60 range but he was noted to have recurrent episode of SVT, he remained asymptomatic therefore Toprol-XL 25 mg was reintroduced patient was noted to have bradycardia with heart rate in 30s and noted to have Mobitz type 1 and second-degree AV block, therefore patient is being transferred to [facility] for EP study and possible pacemaker placement. Acute right-sided heart failure /fluid overload Resolved remains euvolemic ,>11 L neg ,echo showed EF 65%, Continue Jardiance 25mg daily, follow BMP, continue home diuretics Lasix 20 mg as needed Bradycardia with mobitz I and second-degree heart block with recurrent episodes of SVT being transferred to [facility] for EP evaluation and possible pacemaker placement, Toprol-XL discontinued Acute hypoxic respiratory failure resolved, continue CPAP at night. MARTINE due to tubular injury due to poor by mouth intake, vomiting and diarrhea, valsartan discontinued, treated with IV fluids, creatinine improved to 1.62, recommend to avoid nephrotoxins and hypotension Enteritis GI panel + for E coli and Campylobacter, Finish 7 day course of Levaquin and Flagyl ,No recurrent diarrhea, blood cultures negative Essential hypertension with hypotension. Resolved due to volume depletion from diarrhea , s/p IVF/albumin, baseline bp meds held initially , valsartan stopped due to MARTINE, cont. amlodipine follow BP closely Urinary retention Person placed, Flomax resumed , failed voiding trial x1, recommend outpatient voiding trial . Type 2 diabetes mellitus with hypoglycemia on admission likely due to poor by mouth intake due to diarrhea, Hypoglycemia resolved , blood sugar around 200 , treated with Lantus 20 units bedtime and pre meal insulin and insulin sliding scale, recommend to resume home medications . Lactic acidosis, resolved was likely due to hypovolemia. EKG changes, EKG with t wave inversions on admission ,no chest pain, no previous for comparison,d/w cardiology no further work up required - outpatient follow up with Cardiology for possible catheterization Hyperlipidemia. resume ezetimibe, fenofibrate and rosuvastatin. BPH. on Tamsulosin Mood disorder. Continue Depakote, pramipexole and Seroquel. RUPERTO. Nocturnal CPAP. Time Attestation Discharge Coordination Time (in mins): 40 Quality: Safe Use of Opioids Does Pt have an Active Cancer Diagnosis on the Problem List?: No Quality: Stroke Does the patient have a stroke diagnosis?: No Physical Exam Vital Signs: Vital Signs: Last Vital Signs Temp 98.0 F 06/09/24 11:17 Pulse 73 06/09/24 11:17 Resp 20 06/09/24 11:17 BP 101/64 06/09/24 11:17 Pulse Ox 93 06/09/24 11:17 O2 Del Method Room Air 06/09/24 11:17 O2 Flow Rate 2 06/08/24 03:18 Oxygen Flow Rate 2 05/27/24 22:26 BMI result Body Mass Index 41.6 Const: Other: General awake alert x3, in no acute distress. Anicteric sclera Neck no JVD. CVS regular rate rhythm, Respiratory lungs clear to auscultation, no respiratory distress, no wheeze, no rhonchi, no crackles. Gastrointestinal abdomen soft, obese, non tender, bowel sounds audible. Extremities trace edema. Neuro non focal . Skin no rash Psych appropriate affect DS: Data Data Completed and Pending Labs on day of discharge: Laboratory Results - last 24 hr 06/08/24 06/08/24 06/09/24 16:19 21:08 07: POC Glucose 229 H 249 H 172 H 06/09/24 10:50 POC Glucose 201 H Discharge Plan Discharge Anticipated Discharge Date/Time: 06/09/24 12:58 Patient Disposition: Xfer Acute Care Hospital Discharge Diagnosis: Tachy-lucho syndrome with Mobitz type 1/second-degree heart block Referrals: Physician,Unknown J [Primary Care Provider] - 1 Week Discharge Medications: Continued albuterol sulfate 90 mcg/actuation Hfa Aerosol Inhaler 2 puff INHALATION Q6H PRN (Reason: SOB/Wheezing) quetiapine 25 mg Tablet 12.5 mg PO BEDTIME ammonium lactate 12 % Lotion 1 appl TOPICAL DAILY aspirin 81 mg Tablet,Delayed Release (Dr/Ec) 81 mg PO DAILY tamsulosin 0.4 mg Capsule 0.4 mg PO DAILY ascorbic acid (vitamin C) 250 mg Tablet 250 mg PO DAILY amlodipine 10 mg Tablet 10 mg PO DAILY ferrous sulfate 325 mg (65 mg iron) Tablet 325 mg PO DAILY glucose 4 gram Tablet,Chewable 16 g PO Q15M PRN (Reason: Blood Glucose Reaction Below 70) Rx Instructions: until symptoms of low blood sugar are controlled pramipexole 0.25 mg Tablet 0.25 mg PO BID furosemide 20 mg Tablet 20 mg PO DAILY PRN (Reason: Edema) ezetimibe 10 mg Tablet 10 mg PO DAILY divalproex 250 mg Tablet Extended Release 24 Hr 250 mg PO BEDTIME rosuvastatin 40 mg Tablet 40 mg PO DAILY fenofibrate nanocrystallized 48 mg Tablet 96 mg PO DAILY cholecalciferol (vitamin D3) [Vitamin D3] 25 mcg (1,000 unit) Tablet 25 mcg PO DAILY empagliflozin 25 mg Tablet 25 mg PO DAILY Humulin R U-500 (Conc) Kwikpen 500 unit/mL (3 mL) Insulin Pen 170 unit SUBCUT DAILY Discontinued valsartan 320 mg Tablet 320 mg PO DAILY metoprolol succinate 25 mg Tablet Extended Release 24 Hr 25 mg PO DAILY Discharge Orders: Discharge Order (Routine); Ordered 06/09/24 Ordered By: Daniela Park Diet: Diabetic diet Activity on Discharge: As tolerated Stand Alone Forms: Patient Portal Discharge page Print Language: Citizen Of [place] Care Plan Goals: Acute gastroenteritis resolved Bradycardia with Mobitz 1 and second-degree heart block and SVT Essential hypertension MARTINE Health Concerns: Coronary artery disease/diabetes/hypertension need good blood pressure and blood sugar control Plan of Treatment: Transferred to [facility] for EP evaluation for pacemaker Outpatient follow-up with [facility] [employer] Outpatient follow-up with primary care physician Assessment: As above
--- NOTE | 2024-06-09 13:16 | MHC.CM.PN ---
EMR reviewed and per MD rounds, pt will be medically transferring to [facility] for a pacemaker insertion.
== END 2024-06-09 14:00 | disposition short-term general hospital (02) | DRG 371 ==
LOC: HO.ED 05-28 02:15 → HO.EDOVER 05-28 03:30 → HO.IMC 05-28 16:56
PROVIDERS: Nurse Practitioner Acute Care; Physician Assistant Medical; Admitting Provider Internal Medicine; Emergency Provider Internal Medicine; Visit Provider Hospitalist
DX: A04.0 Enteropathogenic Escherichia coli infection (principal); J96.01 Acute respiratory failure with hypoxia; N17.0 Acute kidney failure with tubular necrosis; E87.21 Acute metabolic acidosis; Z68.41 Body mass index [BMI] 40.0-44.9, adult; I47.10 Supraventricular tachycardia, unspecified; A04.5 Campylobacter enteritis; N40.1 Benign prostatic hyperplasia with lower urinary tract symptoms; R33.8 Other retention of urine; I50.811 Acute right heart failure; I11.0 Hypertensive heart disease with heart failure; E11.649 Type 2 diabetes mellitus with hypoglycemia without coma; I95.9 Hypotension, unspecified; F39 Unspecified mood [affective] disorder; G47.33 Obstructive sleep apnea (adult) (pediatric); I44.1 Atrioventricular block, second degree; T38.3X6A Underdosing of insulin and oral hypoglycemic [antidiabetic] drugs, initial encounter; E66.01 Morbid (severe) obesity due to excess calories; E78.5 Hyperlipidemia, unspecified; Z20.822 Contact with and (suspected) exposure to COVID-19; Z79.4 Long term (current) use of insulin; Z79.82 Long term (current) use of aspirin; Z79.899 Other long term (current) drug therapy
CPT/HCPCS: 0241U; 36415; 71045; 80048; 80053; 81001; 82565; 82947; 83605; 83735; 83880; 85025; 85027; 87040; 87507; 92950; 93005; 93306; 94660; 97116; 97162; 97530; 99285; C1758; J0456; J1650; J1836; J1940; J1956; J2405; J7120; P9047; Q9957

== ENCOUNTER → 2024-05-28 01:29 | Outpatient (BNV) | payer OTHER, SELFPAY | PROVIDERS: Admitting Provider Internal Medicine; Emergency Provider Internal Medicine; Visit Provider Internal Medicine Cardiovascular Disease | DX: R94.31 Abnormal electrocardiogram [ECG] [EKG] (principal) | CPT/HCPCS: 93010 ==

== ENCOUNTER 2024-05-28 03:12 | Outpatient (BNV) | payer OTHER, SELFPAY | END 2024-05-30 08:13 | PROVIDERS: Admitting Provider Internal Medicine; Emergency Provider Internal Medicine; Visit Provider Internal Medicine Cardiovascular Disease | DX: I44.0 Atrioventricular block, first degree (principal); R94.31 Abnormal electrocardiogram [ECG] [EKG] | CPT/HCPCS: 93010 ==

== ENCOUNTER 2024-05-28 03:12 | Outpatient (BNV) | payer OTHER, SELFPAY | END 2024-06-02 04:11 | PROVIDERS: Admitting Provider Internal Medicine; Emergency Provider Internal Medicine; Visit Provider Internal Medicine Cardiovascular Disease | DX: I35.0 Nonrheumatic aortic (valve) stenosis (principal); I36.1 Nonrheumatic tricuspid (valve) insufficiency; I34.89 Other nonrheumatic mitral valve disorders; R94.31 Abnormal electrocardiogram [ECG] [EKG] | CPT/HCPCS: 93010; 93306 ==

== ENCOUNTER → 2024-05-28 03:12 | Outpatient (BNV) | payer OTHER, SELFPAY | PROVIDERS: Admitting Provider Internal Medicine; Emergency Provider Internal Medicine; Visit Provider Internal Medicine Hypertension Specialist | DX: N17.0 Acute kidney failure with tubular necrosis (principal) | CPT/HCPCS: 99222; 99231; 99232 ==

== ENCOUNTER → 2024-05-28 03:12 | Outpatient (BNV) | payer OTHER, SELFPAY | PROVIDERS: Admitting Provider Internal Medicine; Emergency Provider Internal Medicine; Visit Provider Internal Medicine | DX: A04.5 Campylobacter enteritis (principal); A04.4 Other intestinal Escherichia coli infections; N17.9 Acute kidney failure, unspecified | CPT/HCPCS: 99223; 99232; 99233; 99239; 99499 ==

== ENCOUNTER → 2024-05-28 03:12 | Outpatient (BNV) | payer OTHER, SELFPAY | PROVIDERS: Admitting Provider Internal Medicine; Emergency Provider Internal Medicine; Visit Provider Internal Medicine Cardiovascular Disease | DX: I47.10 Supraventricular tachycardia, unspecified (principal); I44.1 Atrioventricular block, second degree | CPT/HCPCS: 99222; 99233 ==